=== PATIENT | female | born 1950 | race Caucasian/White ===

== ENCOUNTER 2019-02-23 08:03 | Emergency (ER) | payer OTHER ==
--- OUTSIDE RECORDS SUMMARY | 2019-02-23 08:07 | XMS REPORT ---
:1950 [facility] Address [address] [place] [address] Dr. Deng [address] [place] [id number] Care Team Providers Name Role Phone Unavailable Unavailable Unavailable Problems This patient has no known problems. Allergies, Adverse Reactions, Alerts This patient has no known allergies or adverse reactions. Medications This patient has no known medications.
[2019-02-23] MEDS ORDERED: MORPHINE 2 MG/ML SYR ONE ×2 (08:45→10:50)
[2019-02-23] MEDS ORDERED: ONDANSETRON 4 MG/2 ML VIAL ONE (08:46)
--- NOTE | 2019-02-23 09:22 | RAD REPORT ---
EXAM DESCRIPTION: RAD - Pelvis - 02/23/2019 9:12 am CLINICAL HISTORY: PAIN COMPARISON: No comparisons FINDINGS: No fracture, dislocation or radiographic evidence of AVN. IMPRESSION: Negative study.
--- NOTE | 2019-02-23 09:23 | RAD REPORT ---
EXAM DESCRIPTION: RAD - Hip Right 2 View - 02/23/2019 9:12 am CLINICAL HISTORY: PAIN COMPARISON: No comparisons FINDINGS: No fracture or dislocation seen. No finding to indicate AVN. Vascular calcification eviden t.
--- NOTE | 2019-02-23 10:20 | RAD REPORT ---
EXAM DESCRIPTION: CT - Pelvis Wo Cont - 02/23/2019 10:09 am CLINICAL HISTORY: PAIN Trauma, fall, right-sided hip and pelvic pain COMPARISON: Pelvis dated 02/23/2019; Hip Right 2 View dated 02/23/2019 TECHNIQUE: All CT scans are performed using dose optimization technique as appropriate and may inclu de automated exposure control or mA/KV adjustment according to patient size. FINDINGS: No acute fracture or dislocation is seen. No evidence of AVN. No pelvic fracture seen. Sac ral ala are intact. Moderate lower lumbar degenerative changes. No pelvic mass or hematoma seen. IMPRESSION: No acute finding demonstrated.
--- NOTE | 2019-02-23 10:30 | EDPHYS ---
Physician Documentation [facility] Name: Tri Torrez Age: 68 yrs Sex: Female : 1950 Arrival Date: 02/23/2019 Time: 08:07 Bed 15 Private MD: ED Physician Davion Herman HPI: 02/23 08:07 This 68 yrs old Female presents to ER via Unassigned with complaints of Hip rn Pain. 08:07 The patient or guardian reports decreased range of motion, pain. that occurred at home, rn sustained from standing and rotation the right lower extremity is shortened, the right leg is internally rotated, The patient is able to ambulate with assistance. The patient is able to bear partial body weight. There is no radiation of the patient's discomfort. The complaints affect the right hip. Onset: The symptoms/episode began/occurred this morning. Modifying factors: The symptoms are alleviated by nothing, the symptoms are aggravated by nothing. Associated signs and symptoms: Loss of consciousness: the patient experienced no loss of consciousness, Pertinent positives: None. Pertinent negatives: abdominal pain, fever, incontinence, vomiting, weakness. Severity of symptoms: At their worst the symptoms were moderate, in the emergency department the symptoms are unchanged. The patient has not experienced similar symptoms in the past. Reports walking/standing, rotated and felt pain to right hip, was able to "hop around", no fall or direct trauma, did not hear pop or snap. Hurts to move right hip. . Historical: - Allergies: 08:20 Codeine; jl7 - Home Meds: 08:20 alprazolam 0.25 mg oral tab [Active]; amitriptyline 50 mg Oral tab 2 times per day jl7 [Active]; levothyroxine 25 mcg oral tab [Active]; Vitamin D Oral [Active]; alendronate 70 mg oral tab once wkly [Active]; omeprazole 20 mg Oral cpDR 1 cap 2 times per day [Active]; sulfasalazine 500 mg Oral tab [Active]; - PMHx: 08:20 COPD; Hypothyroidism; Raynaud's Disease; Scleroderma; Rheumatoid Arthritis; Born with 1 jl7 kidney; Osteoporosis; - PSHx: 08:20 Hysterectomy; rectal reconstruction; jl7 - Immunization history:: Adult Immunizations unknown. - Family history:: not pertinent. - Ebola Screening: : No symptoms or risks identified at this time. - Social history:: Smoking status: unknown. - Hospitalizations: : No recent hospitalization is reported. ROS: 08:07 Constitutional: Negative for fever, chills, and weight loss, Abdomen/GI: Negative for rn abdominal pain, nausea, vomiting, diarrhea, and constipation, Back: Negative for injury and pain, MS/Extremity: + right hip injury and pain Skin: Negative for injury, rash, and discoloration, Neuro: Negative for headache, weakness, numbness, tingling, and seizure. Exam: 08:07 Constitutional: This is a well developed, well nourished patient who is awake, alert, rn pain when being moved over to bed from stretcher Skin: Warm, dry with normal turgor. Normal color with no rashes, no lesions, and no evidence of cellulitis. MS/ Extremity: Pulses equal, no cyanosis. Neurovascular intact. RLE passive internal rotation and shortened, painful ROM at hip, able to rotate in and out with hip with less pain, focal tenderness over right hip Vital Signs: 08:20 BP 135 / 59; Pulse 69; Resp 18; Temp 97.7; Pulse Ox 100% ; Pain 10/10; jl7 09:10 BP 164 / 71; Pulse 60; Resp 16; Pulse Ox 100% ; Pain 0/10; jl7 09:10 Pain 0/10; jl7 10:30 BP 127 / 70; Pulse 61; Resp 16; Pulse Ox 98% ; Pain 0/10; jl7 10:49 BP 136 / 57; Pulse 71; Resp 16; Pulse Ox 100% ; Pain 0/10; jl7 MDM: 08:07 Patient medically screened. rn 10:28 ED course: No gross changes in ECG compared to previous on 11/17/18. rn 10:28 Differential diagnosis: hip fracture, intertrochanteric fracture, femoral neck rn fracture, bursitis, arthritis, strain. Data reviewed: vital signs, nurses notes, radiologic studies, CT scan, plain films, and as a result, I will discharge patient. Counseling: I had a detailed discussion with the patient and/or guardian regarding: the historical points, exam findings, and any diagnostic results supporting the discharge/admit diagnosis, radiology results, the need for outpatient follow up, to return to the emergency department if symptoms worsen or persist or if there are any questions or concerns that arise at home. Response to treatment: the patient's symptoms have markedly improved after treatment, and as a result, I will discharge patient. Special discussion: I discussed with the patient/guardian in detail that at this point there is no indication for admission to the hospital. It is understood, however, that if the symptoms persist or worsen the patient needs to return immediately for re-evaluation. 02/23 08:07 Order name: XRAY Pelvis; Complete Time: 09: rn 02/23 08:07 Order name: XRAY Hip RIGHT 2 view; Complete Time: : rn 02/23 09:46 Order name: CT Pelvis wo Cont; Complete Time: : rn Administered Medications: 08:38 Drug: Zofran 4 mg Route: IVP; Site: right antecubital; jl7 09:29 Follow up: Response: No adverse reaction jl7 08:40 Drug: morphine 2 mg Route: IVP; Site: right antecubital; jl7 09:10 Follow up: Pain 0/10 Adult; Response: No adverse reaction; Pain is decreased jl7 10:33 Drug: morphine 2 mg Route: IVP; Site: right antecubital; jl7 10:46 Follow up: Response: No adverse reaction; Pain is decreased jl7 10:33 Drug: Flexeril 10 mg Route: PO; jl7 10:46 Follow up: Response: No adverse reaction jl7 Disposition: 02/23/19 10:29 Discharged to Home. Impression: Strain of muscle, fascia and tendon of right hip. - Condition is Stable. - Discharge Instructions: Muscle Strain, Hip Pain. - Prescriptions for Ultram 50 mg Oral Tablet - take 1 tablet by ORAL route every 6 hours As needed; 15 tablet. Cyclobenzaprine 10 mg Oral Tablet - take 1 tablet by ORAL route every 8 hours As needed; 15 tablet. promethazine 25 mg Oral Tablet - take 1 tablet by ORAL route every 6 hours As needed; 20 tablet. - Medication Reconciliation Form, Thank You Letter, Antibiotic Education, Prescription Opioid Use form. - Follow up: Private Physician; When: As needed; Reason: Recheck today's complaints, Re-evaluation by your physician. - Problem is new. - Symptoms have improved. Signatures: Dispatcher [employer] EDMS Herman, Davion, MD MD rn Emerson, Jahala, RN RN jl7 Corrections: (The following items were deleted from the chart) 10:50 10:29 02/23/2019 10:29 Discharged to Home. Impression: Strain of muscle, fascia and jl7 tendon of right hip. Condition is Stable. Forms are Medication Reconciliation Form, Thank You Letter, Antibiotic Education, Prescription Opioid Use. Follow up: Private Physician; When: As needed; Reason: Recheck today's complaints, Re-evaluation by your physician. Problem is new. Symptoms have improved. rn
--- NOTE | 2019-02-23 10:30 | ER ---
Nurse's Notes [facility] Name: Tri Torrez Age: 68 yrs Sex: Female : 1950 Arrival Date: 02/23/2019 Time: 08:07 Bed 15 Private MD: Diagnosis: Strain of muscle, fascia and tendon of right hip Presentation: 02/23 08:12 Presenting complaint: EMS states: Pt sitting in chair, got up and turned and felt jl7 immediate pain to her right hip. Transition of care: patient was not received from another setting of care. Onset of symptoms was February 22, 2019. Risk Assessment: Do you want to hurt yourself or someone else? Patient reports no desire to harm self or others. Initial Sepsis Screen: Does the patient meet any 2 criteria? No. Patient's initial sepsis screen is negative. Does the patient have a suspected source of infection? No. Patient's initial sepsis screen is negative. Care prior to arrival: Medication(s) given: Tylenol, 1000 mg. 08:12 Method Of Arrival: EMS: [facility] jl7 08:12 Acuity: IVETH 4 jl7 Historical: - Allergies: 08:20 Codeine; jl7 - Home Meds: 08:20 alprazolam 0.25 mg oral tab [Active]; amitriptyline 50 mg Oral tab 2 times per day jl7 [Active]; levothyroxine 25 mcg oral tab [Active]; Vitamin D Oral [Active]; alendronate 70 mg oral tab once wkly [Active]; omeprazole 20 mg Oral cpDR 1 cap 2 times per day [Active]; sulfasalazine 500 mg Oral tab [Active]; - PMHx: 08:20 COPD; Hypothyroidism; Raynaud's Disease; Scleroderma; Rheumatoid Arthritis; Born with 1 jl7 kidney; Osteoporosis; - PSHx: 08:20 Hysterectomy; rectal reconstruction; jl7 - Immunization history:: Adult Immunizations unknown. - Family history:: not pertinent. - Ebola Screening: : No symptoms or risks identified at this time. - Social history:: Smoking status: unknown. - Hospitalizations: : No recent hospitalization is reported. Screenin:10 Abuse screen: Denies threats or abuse. Denies injuries from another. Nutritional jl7 screening: No deficits noted. Tuberculosis screening: No symptoms or risk factors identified. Fall Risk No fall in past 12 months (0 pts). No secondary diagnosis (0 pts). IV access (20 points). Ambulatory Aid- None/Bed Rest/Nurse Assist (0 pts). Gait- Impaired (20 pts.). Mental Status- Oriented to own ability (0 pts). Total Murillo Fall Scale indicates Low Risk Score (25-44 pts). Fall prevention measures have been instituted. Side Rails Up X 2 Placed close to Nursing Station Frequent Obs/Assesments occuring Family Present and informed to notify staff if they need to leave bedside As available Patient and Family Educated on Fall Prevention Program and strategies. Assessment: 09:10 Reassessment: Patient appears in no apparent distress at this time. No changes from [facility] previously documented assessment. Patient and/or family updated on plan of care and expected duration. Pain level reassessed. Patient is alert, oriented x 3, equal unlabored respirations, skin warm/dry/pink. Pt states "I have no pain right now but when a spasm hits it's off the charts." Patient states feeling better. Patient states symptoms have improved. Pain: Denies pain. 09:34 Reassessment: Dr. Herman at bedside discussing plan of care. jl7 09:56 Reassessment: Assisted pt to bathroom, pt able to ambulate slowly with assistance at [facility] this time. 10:30 Reassessment: Patient appears in no apparent distress at this time. No changes from 7 previously documented assessment. Patient and/or family updated on plan of care and expected duration. Pain level reassessed. Patient is alert, oriented x 3, equal unlabored respirations, skin warm/dry/pink. Patient denies pain at this time. Vital Signs: 08:20 BP 135 / 59; Pulse 69; Resp 18; Temp 97.7; Pulse Ox 100% ; Pain 10/10; jl7 09:10 BP 164 / 71; Pulse 60; Resp 16; Pulse Ox 100% ; Pain 0/10; jl7 09:10 Pain 0/10; jl7 10:30 BP 127 / 70; Pulse 61; Resp 16; Pulse Ox 98% ; Pain 0/10; jl7 10:49 BP 136 / 57; Pulse 71; Resp 16; Pulse Ox 100% ; Pain 0/10; jl7 ED Course: 08:07 Patient arrived in ED. hj 08:07 Davion Herman MD is Attending Physician. rn 08:12 Bernabe Emerson RN is Primary Nurse. jl7 08:14 Triage completed. jl7 08:20 Arm band placed on right wrist. jl7 08:30 Patient has correct armband on for positive identification. Bed in low position. Call jl7 light in reach. Side rails up X2. Pulse ox on. NIBP on. Warm blanket given. 08:35 No provider procedures requiring assistance completed. Inserted saline lock: 22 gauge jl7 in right antecubital area, using aseptic technique. 09:18 XRAY Pelvis In Process Unspecified. EDMS 09:18 XRAY Hip RIGHT 2 view In Process Unspecified. EDMS 09:32 Warm blanket given. jl7 10:13 CT Pelvis wo Cont In Process Unspecified. EDMS 10:20 CT completed. Patient tolerated procedure well. Patient moved to CT via stretcher. jg6 Patient moved back from CT. 10:50 IV discontinued, intact, bleeding controlled, No redness/swelling at site. Pressure jl7 dressing applied. Administered Medications: 08:38 Drug: Zofran 4 mg Route: IVP; Site: right antecubital; jl7 09:29 Follow up: Response: No adverse reaction jl7 08:40 Drug: morphine 2 mg Route: IVP; Site: right antecubital; jl7 09:10 Follow up: Pain 0/10 Adult; Response: No adverse reaction; Pain is decreased jl7 10:33 Drug: morphine 2 mg Route: IVP; Site: right antecubital; jl7 10:46 Follow up: Response: No adverse reaction; Pain is decreased jl7 10:33 Drug: Flexeril 10 mg Route: PO; jl7 10:46 Follow up: Response: No adverse reaction jl7 Outcome: 10:29 Discharge ordered by . rn 10:49 Discharged to home via wheelchair, with family. jl7 10:49 Condition: stable 10:49 Discharge instructions given to patient, family, Instructed on discharge instructions, follow up and referral plans. medication usage, Demonstrated understanding of instructions, follow-up care, medications. 10:50 Patient left the ED. jl7 Signatures: Dispatcher [employer] EDMS Davion Herman MD MD rn Joaquin, Henry, RN RN hj Leal, Jahala, RN RN jl7 Garcia, Jessica jg6
[2019-02-23] MEDS ORDERED: CYCLOBENZAPRINE 10 MG TAB ONE (10:50)
== END 2019-02-23 10:50 | disposition home or self-care (01) ==
LOC: ER 08:03
DX: S76.011A Strain of muscle, fascia and tendon of right hip, initial encounter (principal); X50.1XXA Overexertion from prolonged static or awkward postures, initial encounter; J44.9 Chronic obstructive pulmonary disease, unspecified; E03.9 Hypothyroidism, unspecified; I73.00 Raynaud's syndrome without gangrene; Z88.5 Allergy status to narcotic agent
CPT/HCPCS: 72192; 72170; 73502; J2270 ×2; J2405; 96374; 96375; 99284

== ENCOUNTER 2021-01-24 06:16 | Inpatient (IN) | payer OTHER ==
--- OUTSIDE RECORDS SUMMARY | 2021-01-24 06:19 | XMS REPORT | Continuity of Care Document ---
:[address] [facility] t Address [address] [place] [address] Dr. White. [address] [place] [address] Care Team Providers Name Role Phone Doctor Unassigned, Name Attending Clinician Unavailable Problems This patient has no known problems. Allergies, Adverse Reactions, Alerts This patient has no known allergies or adverse reactions. Medications This patient has no known medications. Procedures This patient has no known procedures. Encounters Start End Encounter Admission Attending Care Care Encounter Source Date/Time Date/Time Type Type Clinicians Facility Department ID 2020-06-19 2020-06-19 Orders Doctor MARIBEL [id number] 00:00:00 00:00:00 Only UnassignedBIA [id number] [facility] [id number] Results This patient has no known results.
[2021-01-24 06:56] LABS: Absolute Lymphocytes (CBC) 1.2 K/uL (0.7-4.9); Basophils % 0.5 % (0-1.3); Hematocrit 39.2 % (36.0-45.0); Lymphocytes % 12.7 % (15.3-44.8); MPV 8.4 fL (7.6-11.3); RBC Red Blood Cell Count 4.19 M/uL (3.86-4.86)
[2021-01-24 06:58] LABS: Protime INR 1.1
[2021-01-24] MEDS ORDERED: TETANUS & DIPHTHERIA TOX,ADULT 0.5 ML VIAL ONE (07:16)
[2021-01-24] MEDS ORDERED: KETOROLAC 30 MG/ML INJ ONE (07:16)
[2021-01-24] MEDS ORDERED: NA CHLORIDE 0.9% 1,000 ML ONE (07:16)
[2021-01-24 07:18] LABS: Albumin 3.6 g/dL (3.4-5.0); Bilirubin Direct 0.1 mg/dL (0-0.2); Bilirubin Total 0.3 mg/dL (0.2-1.0); Magnesium 1.9 mg/dL (1.8-2.4); Potassium 4.8 mmol/L (3.5-5.1); Troponin (Emerg Dept Use Only) 0.03 ng/mL (0.0-0.045)
[2021-01-24 07:40] LABS: Blood Morphology Comment NOT SEEN (NOT SEEN); Platelet Estimate ADEQ; White Blood Cell Scan OK (OK)
--- NOTE | 2021-01-24 08:00 | RAD REPORT ---
EXAM DESCRIPTION: CT - Facial Bones W/ Mpr - 01/24/2021 7:38 am CLINICAL HISTORY: Facial injury status post fall. Facial pain COMPARISON: None TECHNIQUE: Computed axial tomography of the face was obtained. Coronal and sagittal reconstruction w as performed. All CT scans are performed using dose optimization technique as appropriate and may include automated exposure control or mA/KV adjustment according to patient size. FINDINGS: Minimally displaced fracture right zygomatic arch. Adjacent superficial hematoma. A TMJ dislocation is not noted. The globes are intact. Fluid within the sinuses is not seen. IMPRESSION: Minimally displaced fracture right zygomatic arch
--- NOTE | 2021-01-24 08:02 | RAD REPORT ---
EXAM DESCRIPTION: CT - Head C Spine Mpr Wo Con - 01/24/2021 7:39 am CLINICAL HISTORY: Head and neck injury status post fall. Head and neck pain COMPARISON: None. TECHNIQUE: Computed axial tomography of the head and cervical spine was obtained. Sagittal and coronal reconstruction was performed. All CT scans are performed using dose optimization technique as appropriate and may include automated exposure control or mA/KV adjustment according to patient size. FINDINGS: Right supraorbital hematoma. Minimally displaced right zygomatic arch fracture. Mild low-density areas within periventricular deep white matter likely ischemic changes secondary to small vessel disease An intracranial bleed is not seen. The ventricles are normal in caliber. An extra-axial fluid collect ion is not noted.Fluid within the visualized sinuses and mastoids is not seen A cervical fracture is not visualized. No dislocation is noted. IMPRESSION: No acute intracranial abnormality is seen. Minimally displaced right zygomatic arch fracture A cervical fracture is not visualized. If the patient continues to have symptoms to suggest intracra nial /spinal cord pathology then MRI would be recommended
--- NOTE | 2021-01-24 08:35 | RAD REPORT ---
EXAM DESCRIPTION: RAD - Shoulder Right 2 View - 01/24/2021 8:25 am CLINICAL HISTORY: Right shoulder pain FINDINGS: Mildly to moderately displaced fracture right humeral neck. No dislocation
--- NOTE | 2021-01-24 08:37 | RAD REPORT ---
EXAM DESCRIPTION: RAD - Humerus Right - 01/24/2021 8:26 am CLINICAL HISTORY: Right arm pain status post fall FINDINGS: Mildly to moderately displaced fracture right humeral neck. No dislocation
--- NOTE | 2021-01-24 08:37 | RAD REPORT ---
EXAM DESCRIPTION: RAD - Elbow Right 2 View - 01/24/2021 8:26 am CLINICAL HISTORY: Elbow pain FINDINGS: Limited two view series. Osteoporosis No fracture or dislocation seen
--- NOTE | 2021-01-24 08:38 | RAD REPORT ---
EXAM DESCRIPTION: Stephon Single View01/24/2021 7:20 am CLINICAL HISTORY: Chest pain COMPARISON: 2008 FINDINGS: Mild bilateral pulmonary opacities. Heart is mildly enlarged. Calcified bilateral breast implants. Mildly to moderately displaced right humeral neck fracture IMPRESSION: Mild bilateral pulmonary opacities may represent interstitial pulmonary edema Mildly to moderately displaced right humeral neck fracture
[2021-01-24] MEDS ORDERED: MORPHINE 2 MG/ML SYR ONE ×2 (08:43→13:57)
[2021-01-24] MEDS ORDERED: ONDANSETRON 4 MG/2 ML VIAL ONE ×2 (08:44→13:58)
--- NOTE | 2021-01-24 09:47 | ER ---
Nurse's Notes [facility] Name: Tri Torrez Age: 70 yrs Sex: Female : 1950 Arrival Date: 01/24/2021 Time: 06:25 Bed 3 Private MD: Diagnosis: 2-part displaced fracture of surgical neck of right humerus Presentation: 01/24 06:26 Chief complaint: EMS states: they were toned out for report of pt having fallen hitting bb her head and injuring her right arm, pt denied LOC. Care prior to arrival: splint to right arm. Mechanism of Injury: Fall out of chair. Trauma event details: Injury occurred in the [facility], Injury occurred: at home. Injury occurred: January 24, 2021. 06:26 Acuity: IVETH 3 bb 06:26 Method Of Arrival: EMS: [facility] :33 Coronavirus screen: At this time, the client does not indicate any symptoms associated bb with coronavirus-19. Ebola Screen: No symptoms or risks identified at this time. Initial Sepsis Screen: Does the patient meet any 2 criteria? No. Patient's initial sepsis screen is negative. Does the patient have a suspected source of infection? No. Patient's initial sepsis screen is negative. Risk Assessment: Do you want to hurt yourself or someone else? Patient reports no desire to harm self or others. Onset of symptoms was January 24, 2021. Historical: - Allergies: 06:33 Codeine; bb 06:33 sulfa; bb - Home Meds: : amitriptyline 50 mg Oral tab 2 times per day [Active]; alprazolam 0.25 mg Oral tab 1 bb tab daily [Active]; alendronate 70 mg Oral tab once wkly [Active]; levothyroxine 25 mcg tab [Active]; omeprazole 20 mg Oral cpDR 1 cap 2 times per day [Active]; sulfasalazine 500 mg Oral tab 2 tab after meals [Active]; VItamin D \T\ E [Active]; - PMHx: 06:33 born with 1 kidney; COPD; Hypothyroidism; Osteoporosis; Raynaud's Disease; Rheumatoid bb Arthritis; Scleroderma; - PSHx: :33 hysterectomy; bb - Immunization history: Last tetanus immunization: unknown. - Social history:: Smoking status: Patient denies any tobacco usage or history of. - Family history:: not pertinent. Screenin:26 Abuse screen: Denies threats or abuse. Tuberculosis screening: No symptoms or risk bb factors identified. 06:36 Nutritional screening: No deficits noted. Fall Risk Fall in past 12 months (25 points). bb Secondary diagnosis (15 points) impaired mobility, IV access (20 points). Ambulatory Aid- None/Bed Rest/Nurse Assist (0 pts). Gait- Impaired (20 pts.). Mental Status- Overestimates/Forgets Limitations (15 pts.). Total Murillo Fall Scale indicates High Risk Score (45 or more points). Fall prevention measures have been instituted. Side Rails Up X 2 As available patient and family educated on Fall Prevention Program and Strategies. Primary Survey: 06:26 NO uncontrolled hemorrhage observed. A: The patient is alert. Airway: patent. bb Breathing/Chest: Respiratory pattern: regular, Respiratory effort: spontaneous. Circulation: Heart tones present. Disability Alert. 07:15 Exposure/Environment: A warming method has been applied: A warm blanket has been hb provided to the patient. 07:15 Reassessment Airway Airway Patent Breathing/Chest Respiratory pattern Regular hb Respiratory effort Spontaneous Unlabored Chest inspection Symmetrical Circulation Color Gleed Disability Alert. 08:15 Reassessment Airway Oxygen No O2 Breathing/Chest Respiratory pattern Regular hb Respiratory effort Spontaneous Unlabored Chest inspection Symmetrical Circulation Color Gleed Disability Alert. 09:00 Reassessment Airway Airway Patent Oxygen No O2 Breathing/Chest Respiratory pattern hb Regular Respiratory effort Spontaneous Unlabored Chest inspection Symmetrical Circulation Pulses Palpable Color Gleed Disability Alert. 10:00 Reassessment Airway Oxygen Nasal cannula Breathing/Chest Respiratory pattern Regular hb Respiratory effort Spontaneous Unlabored Chest inspection Symmetrical Circulation Pulses Palpable Color Gleed Disability Alert. 11:00 Reassessment Airway Airway Patent Oxygen Nasal cannula Breathing/Chest Respiratory hb effort Spontaneous Unlabored Chest inspection Symmetrical Circulation Pulses Palpable Color Gleed Disability Alert. 12:00 Reassessment Airway Oxygen Nasal cannula Breathing/Chest Respiratory effort Spontaneous hb Unlabored Circulation Pulses Palpable Color Gleed Disability Alert. 13:00 Reassessment Airway Oxygen Nasal cannula Circulation Color Gleed Disability Alert. hb 14:00 Reassessment Airway Oxygen Nasal cannula Breathing/Chest Respiratory effort Spontaneous hb Unlabored Circulation Pulses Palpable Color Gleed Disability Alert. Secondary Survey: :26 HEENT: Face Other bruising to right side of face and brow with small skin tear to right bb brow. Gastrointestinal: No deficits noted. Musculoskeletal: Capillary refill < 3 seconds, Reports pain in right arm. Assessment: 06:26 General: Appears in no apparent distress. uncomfortable, Behavior is cooperative, bb anxious. Pain: Complains of pain in right arm Pain currently is 10 out of 10 on a pain scale. Neuro: Level of Consciousness is awake, alert, obeys commands, Oriented to person, place, situation. Cardiovascular: Heart tones S1 S2 present Capillary refill < 3 seconds. Respiratory: Respiratory effort is unlabored, Respiratory pattern is regular. GI: No signs and/or symptoms were reported involving the gastrointestinal system. Derm: Skin is pink, warm \T\ dry. Bruising that is right side of face and brow. Skin tear to right brow and right elbow. Musculoskeletal: Capillary refill < 3 seconds, Reports pain in right arm. 07:15 Reassessment: Patient appears in no apparent distress at this time. Patient and/or hb family updated on plan of care and expected duration. Pain level reassessed. Patient is alert, oriented x 3, equal unlabored respirations, skin warm/dry/pink. 08:00 Reassessment: Patient appears in no apparent distress at this time. Patient and/or hb family updated on plan of care and expected duration. Pain level reassessed. Patient is alert, oriented x 3, equal unlabored respirations, skin warm/dry/pink. 09:00 Reassessment: Patient appears in no apparent distress at this time. Patient and/or hb family updated on plan of care and expected duration. Pain level reassessed. Patient is alert, oriented x 3, equal unlabored respirations, skin warm/dry/pink. 10:00 Reassessment: Patient appears in no apparent distress at this time. Patient and/or hb family updated on plan of care and expected duration. Pain level reassessed. Patient is alert, oriented x 3, equal unlabored respirations, skin warm/dry/pink. 11:00 Reassessment: Patient appears in no apparent distress at this time. Patient and/or hb family updated on plan of care and expected duration. Pain level reassessed. Patient is alert, oriented x 3, equal unlabored respirations, skin warm/dry/pink. 12:00 Reassessment: Patient appears in no apparent distress at this time. Patient and/or hb family updated on plan of care and expected duration. Pain level reassessed. Patient is alert, oriented x 3, equal unlabored respirations, skin warm/dry/pink. 13:00 Reassessment: Patient appears in no apparent distress at this time. Patient and/or hb family updated on plan of care and expected duration. Pain level reassessed. Patient is alert, oriented x 3, equal unlabored respirations, skin warm/dry/pink. 19:35 Reassessment: Patient and/or family updated on plan of care and expected duration. Pain ea level reassessed. Patient is alert, oriented x 3, equal unlabored respirations, skin warm/dry/pink. Report given to receiving nurse. Pt left ED via wheelchair per nurse. Pt tolerating well. Vital Signs: 06:26 BP 154 / 108; Pulse 92; Resp 18 S; Temp 98.3(O); Pulse Ox 93% on R/A; Weight 71.67 kg bb (R); Height 5 ft. 4 in. (162.56 cm) (R); Pain 10/10; 07:15 BP 148 / 88; Pulse 89; Resp 17; Pulse Ox 99% on R/A; hb 08:15 BP 169 / 71; Pulse 84; Resp 15; Pulse Ox 97% on R/A; Pain 8/10; hb 08:30 Pulse Ox 83% on R/A; hb 08:30 Pulse Ox 96% on 3 lpm NC; hb 10:00 BP 152 / 79; Pulse 66; Resp 15; Pulse Ox 97% on 3 lpm NC; Pain 9/10; hb 11:00 BP 148 / 78; Pulse 64; Resp 17; Pulse Ox 97% on 2 lpm NC; hb 12:00 BP 118 / 75; Pulse 68; Resp 15; Pulse Ox 97% on 2 lpm NC; hb 13:00 BP 132 / 82; Pulse 80; Resp 19; Pulse Ox 98% on 2 lpm NC; hb 14:00 BP 146 / 86; Pulse 67; Resp 18; Pulse Ox 95% on 2 lpm NC; Pain 9/10; hb 06:26 Body Mass Index 27.12 (71.67 kg, 162.56 cm) bb Bethany Coma Score: 06:26 Eye Response: spontaneous(4). Verbal Response: oriented(5). Motor Response: obeys bb commands(6). Total: 15. Trauma Score (Adult): 06:26 Eye Response: spontaneous(1); Verbal Response: oriented(1); Motor Response: obeys bb commands(2); Systolic BP: > 89 mm Hg(4); Respiratory Rate: 10 to 29 per min(4); Jose D Score: 15; Trauma Score: 12 07:15 Eye Response: spontaneous(1); Verbal Response: oriented(1); Motor Response: obeys hb commands(2); Systolic BP: > 89 mm Hg(4); Respiratory Rate: 10 to 29 per min(4); Bethany Score: 15; Trauma Score: 12 08:15 Eye Response: spontaneous(1); Verbal Response: oriented(1); Motor Response: obeys hb commands(2); Systolic BP: > 89 mm Hg(4); Respiratory Rate: 10 to 29 per min(4); Jose D Score: 15; Trauma Score: 12 10:00 Eye Response: spontaneous(1); Verbal Response: oriented(1); Motor Response: obeys hb commands(2); Systolic BP: > 89 mm Hg(4); Respiratory Rate: 10 to 29 per min(4); Jose D Score: 15; Trauma Score: 12 11:00 Eye Response: spontaneous(1); Verbal Response: oriented(1); Motor Response: obeys hb commands(2); Systolic BP: > 89 mm Hg(4); Respiratory Rate: 10 to 29 per min(4); Bethany Score: 15; Trauma Score: 12 12:00 Eye Response: spontaneous(1); Verbal Response: oriented(1); Motor Response: obeys hb commands(2); Systolic BP: > 89 mm Hg(4); Respiratory Rate: 10 to 29 per min(4); Bethany Score: 15; Trauma Score: 12 13:00 Eye Response: spontaneous(1); Verbal Response: oriented(1); Motor Response: obeys hb commands(2); Systolic BP: > 89 mm Hg(4); Respiratory Rate: 10 to 29 per min(4); Bethany Score: 15; Trauma Score: 12 14:00 Eye Response: spontaneous(1); Verbal Response: oriented(1); Motor Response: obeys hb commands(2); Systolic BP: > 89 mm Hg(4); Respiratory Rate: 10 to 29 per min(4); Jose D Score: 15; Trauma Score: 12 ED Course: 06:25 Patient arrived in ED. bb 06:25 Apolonia Nolasco MD is Attending Physician. ma2 06:26 Patient has correct armband on for positive identification. Bed in low position. Call bb light in reach. Side rails up X 1. Patient maintains SpO2 saturation greater than 95% on room air. 06:26 Patient maintains SpO2 saturation greater than 95% on room air. bb 06:27 Triage completed. bb 06:30 Inserted saline lock: 20 gauge in right wrist, using aseptic technique. jb4 06:36 Arm band placed on. bb 06:36 Thermoregulation: warm blanket given to patient. bb 07:07 Attending Physician role handed off by Apolonia Nolasco MD kdr 07:07 Dexter Felix MD is Attending Physician. kdr 07:19 XRAY Chest (1 view) In Process Unspecified. EDMS 07:38 Facial Bones W/O Con CT In Process Unspecified. EDMS 07:39 CT Head C Spine In Process Unspecified. EDMS 08:25 Shoulder Right (2 View) XRAY In Process Unspecified. EDMS 08:25 Humerus Right XRAY In Process Unspecified. EDMS 08:25 Elbow Right 2 View In Process Unspecified. EDMS 08:31 Layla Stovall RN is Primary Nurse. hb 09:44 Danis Cabrera is Hospitalizing Provider. kdr 10:13 Inserted saline lock: 22 gauge in left antecubital area, using aseptic technique. Blood ss collected. 14:00 No provider procedures requiring assistance completed. Patient admitted, IV remains in hb place. 19:35 Primary Nurse role handed off by Layla Stovall RN mw2 Administered Medications: 07:00 Drug: Ketorolac 30 mg Route: IVP; Site: left hand; bb 07:11 Follow up: Response: No adverse reaction bb 07:00 Drug: NS 0.9% 1000 ml Route: IV; Rate: 1 bolus; Site: left hand; bb 07:00 Drug: Tetanus-Diphtheria Toxoid Adult 0.5 ml {Coarse [employer] Drawer: [employer]. Exp: bb 09/29/2022. Lot #: [id number]. } Route: IM; Site: left deltoid; 07:12 Follow up: Response: No adverse reaction bb 08:29 Drug: morphine 2 mg Route: IVP; Site: left wrist; hb 08:29 Drug: Zofran (Ondansetron) 4 mg Route: IVP; Site: left wrist; hb 09:10 Follow up: Response: No adverse reaction hb 10:29 Drug: morphine 4 mg Route: IVP; Site: left antecubital; hb 13:40 Drug: morphine 2 mg Route: IVP; Site: left antecubital; hb Intake: 06:26 PO: 0ml; Total: 0ml. bb Outcome: 09:47 Decision to Hospitalize by Provider. kdr 14:00 Admitted to ER Hold. Please see [facility] for further documentation. hb 14:00 Condition: stable 14:00 Instructed on the need for admit, Demonstrated understanding of instructions. 14:00 Patient's length of stay in the Emergency Department was greater than 2 hours. hb 19:36 Patient left the ED. linnette Signatures: Dispatcher [employer] EDMS Dexter Felix MD MD kdr Ballard, Brenda, RN RN bb Kimberly Pack RN RN ss Baxter, Heather, RN RN Austin Rosado RN RN jb4 Antunez, Elena, RN RN ea Alzahri, Mohammad, MD MD ma2 Mary Ann Grissom 2
--- NOTE | 2021-01-24 09:48 | EDPHYS ---
Physician Documentation [facility] Name: Tri Torrez Age: 70 yrs Sex: Female : 1950 Arrival Date: 01/24/2021 Time: 06:25 Bed 3 Private MD: ED Physician Dexter Felix HPI: 01/24 06:49 This 70 yrs old Female presents to ER via EMS with complaints of Fall Injury. ma2 06:49 Details of fall: The patient fell from seated position, out of a chair. Onset: The ma2 symptoms/episode began/occurred acutely, gradually, 1 hour(s) ago. Severity of symptoms: At their worst the symptoms were mild, in the emergency department the symptoms are unchanged. The patient has experienced similar episodes in the past. 06:51 lost balance, fell hit her head and right elbow and shoulder . ma2 Historical: - Allergies: 06:33 Codeine; bb 06:33 sulfa; bb - Home Meds: 06:33 amitriptyline 50 mg Oral tab 2 times per day [Active]; alprazolam 0.25 mg Oral tab 1 bb tab daily [Active]; alendronate 70 mg Oral tab once wkly [Active]; levothyroxine 25 mcg tab [Active]; omeprazole 20 mg Oral cpDR 1 cap 2 times per day [Active]; sulfasalazine 500 mg Oral tab 2 tab after meals [Active]; VItamin D \T\ E [Active]; - PMHx: 06:33 born with 1 kidney; COPD; Hypothyroidism; Osteoporosis; Raynaud's Disease; Rheumatoid bb Arthritis; Scleroderma; - PSHx: 06:33 hysterectomy; bb - Immunization history: Last tetanus immunization: unknown. - Social history:: Smoking status: Patient denies any tobacco usage or history of. - Family history:: not pertinent. ROS: 06:50 Constitutional: Negative for fever, chills, and weight loss, Cardiovascular: Negative ma2 for chest pain, palpitations, and edema, Respiratory: Negative for shortness of breath, cough, wheezing, and pleuritic chest pain, Abdomen/GI: Negative for abdominal pain, nausea, diarrhea, and constipation. 06:51 All other systems are negative. ma2 Exam: 06:51 Constitutional: This is a well developed, well nourished patient who is awake, alert, ma2 and in no acute distress. Head/Face: right forehead contusion otherwise Normocephalic Eyes: Pupils equal round and reactive to light, extra-ocular motions intact. Lids and lashes normal. Conjunctiva and sclera are non-icteric and not injected. Cornea within normal limits. Periorbital areas with no swelling, redness, or edema. ENT: Nares patent. No nasal discharge, no septal abnormalities noted. Tympanic membranes are normal and external auditory canals are clear. Oropharynx with no redness, swelling, or masses, exudates, or evidence of obstruction, uvula midline. Mucous membranes moist. Neck: Trachea midline, no thyromegaly or masses palpated, and no cervical lymphadenopathy. Supple, full range of motion without nuchal rigidity, or vertebral point tenderness. No Meningismus. Chest/axilla: Normal chest wall appearance and motion. Nontender with no deformity. No lesions are appreciated. Cardiovascular: Regular rate and rhythm with a normal S1 and S2. No gallops, murmurs, or rubs. Normal PMI, no JVD. No pulse deficits. Respiratory: Lungs have equal breath sounds bilaterally, clear to auscultation and percussion. No rales, rhonchi or wheezes noted. No increased work of breathing, no retractions or nasal flaring. Abdomen/GI: Soft, non-tender, with normal bowel sounds. No distension or tympany. No guarding or rebound. No evidence of tenderness throughout. Back: No spinal tenderness. No costovertebral tenderness. Full range of motion. Skin: Warm, dry with normal turgor. Normal color with no rashes, no lesions, and no evidence of cellulitis. MS/ Extremity: right elbow pain and right shoulder pain, there is right elbow skin abrasion with skin tear. otherwise Pulses equal, no cyanosis. Neurovascular intact. Full, normal range of motion. Neuro: Awake and alert, GCS 15, oriented to person, place, time, and situation. Cranial nerves II-XII grossly intact. Motor strength 5/5 in all extremities. Sensory grossly intact. Cerebellar exam normal. Normal gait. Vital Signs: 06:26 BP 154 / 108; Pulse 92; Resp 18 S; Temp 98.3(O); Pulse Ox 93% on R/A; Weight 71.67 kg bb (R); Height 5 ft. 4 in. (162.56 cm) (R); Pain 10/10; 07:15 BP 148 / 88; Pulse 89; Resp 17; Pulse Ox 99% on R/A; hb 08:15 BP 169 / 71; Pulse 84; Resp 15; Pulse Ox 97% on R/A; Pain 8/10; hb 08:30 Pulse Ox 83% on R/A; hb 08:30 Pulse Ox 96% on 3 lpm NC; hb 10:00 BP 152 / 79; Pulse 66; Resp 15; Pulse Ox 97% on 3 lpm NC; Pain 9/10; hb 11:00 BP 148 / 78; Pulse 64; Resp 17; Pulse Ox 97% on 2 lpm NC; hb 12:00 BP 118 / 75; Pulse 68; Resp 15; Pulse Ox 97% on 2 lpm NC; hb 13:00 BP 132 / 82; Pulse 80; Resp 19; Pulse Ox 98% on 2 lpm NC; hb 14:00 BP 146 / 86; Pulse 67; Resp 18; Pulse Ox 95% on 2 lpm NC; Pain 9/10; hb 06:26 Body Mass Index 27.12 (71.67 kg, 162.56 cm) bb Walker Coma Score: 06:26 Eye Response: spontaneous(4). Verbal Response: oriented(5). Motor Response: obeys bb commands(6). Total: 15. Trauma Score (Adult): 06:26 Eye Response: spontaneous(1); Verbal Response: oriented(1); Motor Response: obeys bb commands(2); Systolic BP: > 89 mm Hg(4); Respiratory Rate: 10 to 29 per min(4); Walker Score: 15; Trauma Score: 12 07:15 Eye Response: spontaneous(1); Verbal Response: oriented(1); Motor Response: obeys hb commands(2); Systolic BP: > 89 mm Hg(4); Respiratory Rate: 10 to 29 per min(4); Walker Score: 15; Trauma Score: 12 08:15 Eye Response: spontaneous(1); Verbal Response: oriented(1); Motor Response: obeys hb commands(2); Systolic BP: > 89 mm Hg(4); Respiratory Rate: 10 to 29 per min(4); Walker Score: 15; Trauma Score: 12 10:00 Eye Response: spontaneous(1); Verbal Response: oriented(1); Motor Response: obeys hb commands(2); Systolic BP: > 89 mm Hg(4); Respiratory Rate: 10 to 29 per min(4); Walker Score: 15; Trauma Score: 12 11:00 Eye Response: spontaneous(1); Verbal Response: oriented(1); Motor Response: obeys hb commands(2); Systolic BP: > 89 mm Hg(4); Respiratory Rate: 10 to 29 per min(4); Jose D Score: 15; Trauma Score: 12 12:00 Eye Response: spontaneous(1); Verbal Response: oriented(1); Motor Response: obeys hb commands(2); Systolic BP: > 89 mm Hg(4); Respiratory Rate: 10 to 29 per min(4); Walker Score: 15; Trauma Score: 12 13:00 Eye Response: spontaneous(1); Verbal Response: oriented(1); Motor Response: obeys hb commands(2); Systolic BP: > 89 mm Hg(4); Respiratory Rate: 10 to 29 per min(4); Jose D Score: 15; Trauma Score: 12 14:00 Eye Response: spontaneous(1); Verbal Response: oriented(1); Motor Response: obeys hb commands(2); Systolic BP: > 89 mm Hg(4); Respiratory Rate: 10 to 29 per min(4); Jose D Score: 15; Trauma Score: 12 MDM: 06:25 Patient medically screened. ma2 06:51 Differential diagnosis: closed head injury, contusion, fracture, sprain, strain. ma2 09:47 Data reviewed: vital signs, nurses notes, lab test result(s), radiologic studies. kdr Counseling: I had a detailed discussion with the patient and/or guardian regarding: the historical points, exam findings, and any diagnostic results supporting the discharge/admit diagnosis, lab results, radiology results, the need for further work-up and treatment in the hospital. 01/24 06:26 Order name: Basic Metabolic Panel; Complete Time: 08:43 01/24 06:26 Order name: CBC with Diff; Complete Time: 08:43 01/24 06:26 Order name: LFT's; Complete Time: 08:43 01/24 06:26 Order name: Magnesium; Complete Time: 08:43 01/24 06:26 Order name: NT PRO-BNP; Complete Time: 08:43 ma2 01/24 06:26 Order name: PT-INR; Complete Time: 08:43 ma2 01/24 06:26 Order name: CT Head C Spine; Complete Time: 08:43 ma2 01/24 06:26 Order name: Troponin (emerg Dept Use Only); Complete Time: 08:43 ma2 01/24 06:26 Order name: XRAY Chest (1 view); Complete Time: 08:43 ma2 01/24 06:42 Order name: Facial Bones W/O Con CT; Complete Time: 08:43 ma2 01/24 06:42 Order name: Shoulder Right (2 View) XRAY; Complete Time: 08:43 ma2 01/24 06:42 Order name: Humerus Right XRAY; Complete Time: 08:43 ma2 01/24 07:03 Order name: CBC Smear Scan; Complete Time: 08:43 EDMS 01/24 06:26 Order name: EKG; Complete Time: 06:27 ma2 01/24 06:26 Order name: Cardiac monitoring; Complete Time: 06:58 ma2 01/24 06:26 Order name: EKG - Nurse/Tech; Complete Time: 06:58 ma2 01/24 06:26 Order name: IV Saline Lock; Complete Time: 06:35 ma2 01/24 06:26 Order name: Labs collected and sent; Complete Time: 06:58 ma2 01/24 06:26 Order name: O2 Per Protocol; Complete Time: 06:35 ma2 01/24 06:26 Order name: O2 Sat Monitoring; Complete Time: 06:35 ma2 01/24 06:42 Order name: Dressing - Wound; Complete Time: 13:40 ma2 01/24 08:25 Order name: Elbow Right 2 View; Complete Time: 08:43 EDMS Administered Medications: 07:00 Drug: Ketorolac 30 mg Route: IVP; Site: left hand; bb 07:11 Follow up: Response: No adverse reaction bb 07:00 Drug: NS 0.9% 1000 ml Route: IV; Rate: 1 bolus; Site: left hand; bb 07:00 Drug: Tetanus-Diphtheria Toxoid Adult 0.5 ml {Pie Maker: [employer] Exp: bb 09/29/2022. Lot #: [id number]. } Route: IM; Site: left deltoid; 07:12 Follow up: Response: No adverse reaction bb 08:29 Drug: morphine 2 mg Route: IVP; Site: left wrist; hb 08:29 Drug: Zofran (Ondansetron) 4 mg Route: IVP; Site: left wrist; hb 09:10 Follow up: Response: No adverse reaction hb 10:29 Drug: morphine 4 mg Route: IVP; Site: left antecubital; hb 13:40 Drug: morphine 2 mg Route: IVP; Site: left antecubital; hb Disposition Summary: 01/24/21 09:47 Hospitalization Ordered Hospitalization Status: Observation kdr Provider: Danis Cabrera Condition: Fair kdr Problem: new kdr Symptoms: have improved kdr Bed/Room Type: Standard kdr Location: Telemetry/MedSurg (observation)(01/24/21 17:57) bd Room Assignment: [facility](01/24/21 17:57) bd Diagnosis - 2-part displaced fracture of surgical neck of right humerus kdr Forms: - Medication Reconciliation Form kdr - SBAR form kdr Signatures: Dispatcher [employer] EDMS Bev Lucas Kevin, MD MD kdr Tri Valentin RN RN bb Smirch, Shelby, RN RN ss Baxter, Heather, RN RN Apolonia Nolasco MD MD ma2 Corrections: (The following items were deleted from the chart) 08:25 06:42 Elbow Right 3 View+[email or web address] ordered. EDMS EDMS 14:08 09:47 Telemetry/MedSurg (observation) kdr ss 14:08 09:47 kdr ss 14:08 14:08 ss ss 17:57 14:08 [facility] ER HOLD ss bd 17:57 14:08 ERHOLD- ss bd
[2021-01-24] MEDS ORDERED: MORPHINE 4 MG/ML SYR ONE (10:00)
--- NOTE | 2021-01-24 11:00 | P.HP ---
Certification for Inpatient Patient admitted to: Observation With expected LOS: <2 Midnights Practitioner: I am a practitioner with admitting privileges, knowledge of patient current condition, hospital course, and medical plan of care. Services: Services provided to patient in accordance with Admission requirements found in Title 42 Section 412.3 of the Code of Federal Regulations Patient History Date of Service: 01/24/21 Reason for admission: Fall with humeral fracture History of Present Illness: [age]-year-old woman with a history of rheumatoid arthritis, hypothyroidism was brought to the emergency department after a fall at home. Patient stated she fell when got up from her recliner in the middle of the night to go and sleep on her bed. She thought she might have turned around quickly. She hit the right side of her head and sustained laceration sabianism. She could not get up and walk. She developed pain. was woken by their dogs a few hours later and found her lying in a pool of blood. According to the patient responding to him appropriately, no loss of consciousness but she was in pain. She was brought to the emergency department where x-rays showing minimal to moderately displaced right femoral fracture, no dislocation. Patient needing a lot of pain medications for pain control. The ED physician wishes to place patient under observation for pain control. Allergies codeine Allergy (Unverified 06/01/17 06:22) Unknown - Past Medical/Surgical History Diabetic: No -: Rheumatoid arthritis -: Raynaud's disease -: Hypothyroidism -: Hysterectomy -: Rectal reconstruction surgery - Family History Father -: Cancer (Lungs) Brother -: Cancer (Lung) - Social History Smoking Status: Never smoker Alcohol use: No CD- Drugs: No Place of Residence: Home Review of Systems Other: Patient denied any dizziness, or palpitation or chest pain or diaphoresis preceding the fall. She denies any fever or chills or abdominal pain or nausea. She denies any diarrhea or vomiting. Except as documented, all other systems reviewed and negative. Physical Examination - Physical Exam General: Alert, In no apparent distress, Oriented x3 HEENT: Mucous membr. moist/pink, Other (small laceration right sabianism.) Neck: Supple, JVD not distended Respiratory: Clear to auscultation bilaterally, Normal air movement Cardiovascular: No edema, Regular rate/rhythm, Normal S1 S2 Capillary refill: <2 Seconds Gastrointestinal: Normal bowel sounds, Soft and benign, Non-distended, No tenderness Musculoskeletal: Tenderness (right arm), Other (cyanotic fingers) Integumentary: No rashes Neurological: Normal strength at 5/5 x4 extr, Cranial nerves 3-12 intact Lymphatics: No axilla or inguinal lymphadenopathy - Studies Laboratory Data (last 24 hrs) 01/24/21 06:46: PT 12.7 H, INR 1.10 01/24/21 06:46: WBC 9.20, Hgb 12.4, Hct 39.2, Plt Count 165 01/24/21 06:46: Sodium 141, Potassium 4.8, BUN 26 H, Creatinine 2.19 H, Glucose 104, Magnesium 1.9, Total Bilirubin 0.3, AST 17, ALT 17, Alkaline Phosphatase 88 Assessment and Plan - Problems (Diagnosis) (1) Fall Current Visit: Yes Status: Acute (2) Humeral fracture Current Visit: Yes Status: Acute (3) Rheumatoid arthritis Current Visit: Yes Status: Acute (4) Acute renal failure Current Visit: Yes Status: Acute - Plan Place under observation. Pain management with IV fentanyl, Burley and Naprosyn Will also add gabapentin for nerve pain. Hydrate with normal saline and monitor renal function for improvement. Consulting nephrology. Sling for right humeral fracture. PT to evcarlos low. 24 hr telemetry. - Advance Directives Does patient have a Living Will: No Does patient have a Durable POA for Healthcare: No
[2021-01-24] MEDS: NA CHLORIDE 0.9% 1,000 ML IV SCH ×2 (15:14→20:38)
[2021-01-24] MEDS ORDERED: NAPROXEN 250 MG TAB PO PRN (15:14)
[2021-01-24] MEDS ORDERED: HYDROCODONE/APAP 5/325 MG TAB PO PRN (15:14)
[2021-01-24] MEDS: FENTANYL CITR 100 MCG/2 ML IV PRN ×2 (15:40→18:48)
[2021-01-24] MEDS ORDERED: FENTANYL CITR 100 MCG/2 ML ONE ×2 (15:40→18:53)
[2021-01-24] MEDS: HEPARIN 5000 UNIT/ML 1 ML VIAL SQ SCH (17:00)
[2021-01-24] MEDS ORDERED: HEPARIN 5000 UNIT/ML 1 ML VIAL ONE (18:51)
[2021-01-24 20:20] VITALS: BMI 27.3
[2021-01-25] MEDS: HEPARIN 5000 UNIT/ML 1 ML VIAL SQ SCH ×3 (00:16→16:39)
[2021-01-25] MEDS: FENTANYL CITR 100 MCG/2 ML IV PRN ×2 (00:26→20:54)
[2021-01-25] MEDS: NA CHLORIDE 0.9% 1,000 ML IV SCH (04:34)
[2021-01-25 05:54] LABS: Absolute Lymphocytes (CBC) 0.7 K/uL (0.7-4.9); Basophils % 0.3 % (0-1.3); Hematocrit 35.3 % (36.0-45.0); Lymphocytes % 9.7 % (15.3-44.8); MPV 8.6 fL (7.6-11.3); RBC Red Blood Cell Count 3.83 M/uL (3.86-4.86)
[2021-01-25 06:02] LABS: Magnesium 1.6 mg/dL (1.8-2.4); Phosphorus 2.1 mg/dL (2.5-4.9); Potassium 5.4 mmol/L (3.5-5.1)
[2021-01-25] MEDS: LEVOTHYROXINE SOD 0.025 MG TAB PO SCH (06:30)
[2021-01-25] MEDS ORDERED: MAGNESIUM SULFATE 1 gm IVPB 1 GM/100 ML BAG IV ONE (07:30)
[2021-01-25] MEDS: POTASS/SODIUM PHOSPHATE 1 PKT POWD.PACK PO SCH ×3 (08:00→10:00)
[2021-01-25] MEDS ORDERED: Oxycodone HCl/Acetaminophen 1 TAB TAB PO ONE (11:49)
[2021-01-25] MEDS ORDERED: POTASS/SODIUM PHOSPHATE 1 PKT POWD.PACK PO SCH (12:00)
[2021-01-25] MEDS ORDERED: ONDANSETRON 4 MG/2 ML VIAL IV PRN (12:56)
[2021-01-25] MEDS ORDERED: PROMETHAZINE INJ 25 MG/ML AMP IV PRN (12:59)
--- NOTE | 2021-01-25 16:25 | P.PN ---
Subjective Date of Service: 01/25/21 Chief Complaint: Fall with humeral fracture Patient complaining of a lot of pain which has flinching. Physical Examination - Vital Signs Temperature: 98.1 F Blood Pressure: 141/65 Pulse: 72 Respirations: 19 Pulse Ox (%): 93 - Physical Exam General: Alert, In no apparent distress HEENT: Mucous membr. moist/pink Neck: JVD not distended Respiratory: Clear to auscultation bilaterally, Normal air movement Cardiovascular: No edema, Regular rate/rhythm, Normal S1 S2 Gastrointestinal: Soft and benign, Non-distended, No tenderness Musculoskeletal: No swelling, Tenderness (Right arm) Integumentary: Other (Bruised rigt ) Neurological: Normal strength at 5/5 x4 extr, Cranial nerves 3-12 intact Assessment And Plan - Current Problems (Diagnosis) (1) Fall Current Visit: Yes Status: Acute (2) Humeral fracture Current Visit: Yes Status: Acute (3) Rheumatoid arthritis Current Visit: Yes Status: Acute (4) Acute renal failure Current Visit: Yes Status: Acute - Plan Continue Pain management with IV fentanyl. Patient states she does not tolerate Mannford. Mannford changed to oxycodone. Gabapentin. Renal function is improving slowly. Continue IV normal saline. Nephrology consult. Monitor renal function. Sling for right humeral fracture. Patient reported to be drowsy after oxycodone and Phenergan. PT to eval low when she is more awake
[2021-01-25] MEDS: AMITRIPTYLINE 50 MG TAB PO SCH (20:37)
[2021-01-26] MEDS: HEPARIN 5000 UNIT/ML 1 ML VIAL SQ SCH ×4 (01:25→17:19)
[2021-01-26] MEDS: LEVOTHYROXINE SOD 0.025 MG TAB PO SCH (05:59)
[2021-01-26 06:05] LABS: Phosphorus 2.9 mg/dL (2.5-4.9); Potassium 5.3 mmol/L (3.5-5.1)
--- NOTE | 2021-01-26 06:24 | EKG ---
Test Date: 2021-01-24 Test Time: 06:52:12 [place] Folder: JOSELITO MEASUREMENT RESULTS: Intervals: Rate: 63 IL: 234 QRSD: 94 QT: 448 QTc: 458 [place]: P: 57 IL: 234 QRS: -35 T: 57 INTERPRETIVE STATEMENTS: Sinus rhythm with 1st degree AV block Possible Left atrial enlargement Left axis deviation Left ventricular hypertrophy Abnormal ECG Compared to ECG 01/06/2009 19:53:41 First degree AV block now present Left-axis deviation now present Left ventricular hypertrophy now present Prolonged QT interval no longer present Electronically Signed On 01-26-21 06:18:28 CDT by Guido Farrell
[2021-01-26] MEDS ORDERED: HOME MED 1 EA UNK (Levothyroxine Sodium [Levothyroxine] 25 MCG Capsule) PO SCH (09:00)
[2021-01-26] MEDS ORDERED: HOME MED 1 EA UNK (Sulfasalazine [Sulfasalazine] 500 MG Tablet) PO SCH (09:00)
[2021-01-26] MEDS: SULFASALAZINE 500 MG E.C. TAB PO SCH (09:30)
[2021-01-26] MEDS: AMITRIPTYLINE 50 MG TAB PO SCH ×2 (09:30→21:03)
--- NOTE | 2021-01-26 11:36 | RAD REPORT ---
EXAM DESCRIPTION: RAD - Hip Right 2 View - 01/26/2021 11:07 am CLINICAL HISTORY: Right inguinal pain s/p fall Trauma, right inguinal pain COMPARISON: Hip Right 2 View dated 02/23/2019 FINDINGS: No acute fracture or dislocation evident.
--- NOTE | 2021-01-26 16:10 | P.PN ---
Subjective Date of Service: 01/26/21 Chief Complaint: Fall with humeral fracture Patient is very confused this afternoon. She is disoriented. She worked well with physical therapy this morning and was able to ambulate with a walker. She was complaining of pain in the right groin. X-ray of the hip shows no acute fracture or dislocation. Physical Examination - Vital Signs Temperature: 98.0 F Blood Pressure: 179/75 Pulse: 72 Respirations: 16 Pulse Ox (%): 94 - Physical Exam General: In no apparent distress, Confused HEENT: PERRLA, Mucous membr. moist/pink, Sclerae nonicteric Neck: JVD not distended Respiratory: Clear to auscultation bilaterally, Normal air movement Cardiovascular: No edema, Regular rate/rhythm, Normal S1 S2 Gastrointestinal: Normal bowel sounds, Soft and benign, Non-distended, No tenderness Musculoskeletal: Swelling (Right knee), Other (Splinted right upper extremity) Integumentary: Other (Bruise at right sabianist.) Neurological: Normal speech, Other (No focal motor deficit) Assessment And Plan - Current Problems (Diagnosis) (1) Fall Current Visit: Yes Status: Acute (2) Humeral fracture Current Visit: Yes Status: Acute (3) Rheumatoid arthritis Current Visit: Yes Status: Acute (4) Acute renal failure Current Visit: Yes Status: Acute (5) Altered mental status Current Visit: Yes Status: Acute - Plan Altered mental status. Rule out acute CVA versus intracranial bleed from head injury. Obtain head CT. Neuro checks. Limit opioid for pain. Oxycodone p.r.n. No Gabapentin until mental status clears. Renal function is improving slowly. Continue IV normal saline. Nephrology to see. Monitor renal function. Sling for right humeral fracture. Continue PT. Check UA to assess for UTI.
--- NOTE | 2021-01-26 16:12 | P.CNS ---
Date of Consult: 01/26/21 Reason for Consult: RADHA Requesting Physician: salvatore cassidy Chief Complaint: Fall with humeral fracture History of Present Illness: 70-year-old woman with a history of rheumatoid arthritis, hypothyroidism was brought to the emergency department after a fall at home. Patient stated she fell when got up from her recliner in the middle of the night to go and sleep on her bed. She thought she might have turned around quickly. She hit the right side of her head and sustained laceration latter-day. She could not get up and walk. She developed pain. was woken by their dogs a few hours later and found her lying in a pool of blood. According to the patient responding to him appropriately, no loss of consciousness but she was in pain. She was brought to the emergency department where x-rays showing minimal to mod erately displaced right femoral fracture, no dislocation. Patient needing a lot of pain medications for pain control. The ED physician wishes to place patient under observation for pain control. 06:49 This 70 yrs old Female presents to ER via EMS with complaints of Fall Injury. ma2 06:49 Details of fall: The patient fell from seated position, out of a chair. Onset: The ma2 symptoms/episode began/occurred acutely, gradually, 1 hour(s) ago. Severity of symptoms: At their worst the symptoms were mild, in the emergency department the symptoms are unchanged. The patient has experienced similar episodes in the past. 06:51 lost balance, fell hit her head and right elbow and shoulder . Allergies codeine Allergy (Verified 01/24/21 20:25) throwing up Sulfa (Sulfonamide Antibiotics) Allergy (Verified 01/24/21 20:25) Itching/Hives/Rash Home medications list reviewed: Yes Home Medications: ALPRAZolam [Alprazolam] 0.25 mg PO DAILY 01/25/21 Amitriptyline [Elavil*] 50 mg PO BID 01/25/21 Levothyroxine Sodium [Levothyroxine] 25 mcg PO DAILY 01/25/21 sulfaSALAzine [Sulfasalazine] 500 mg PO DAILY 01/25/21 - Past Medical/Surgical History Diabetic: No -: Rheumatoid arthritis -: Raynaud's disease -: Hypothyroidism -: Hysterectomy -: Rectal reconstruction surgery - Family History Father Medical History: Cancer Brother Medical History: Cancer - Social History Smoking Status: Unknown if ever smoked Alcohol use: No CD- Drugs: No Place of Residence: Home Review of Systems 10-point ROS is otherwise unremarkable General: Weakness, Malaise Integumentary: Bruising Neurological: Weakness Physical Examination Temp Pulse Resp BP Pulse Ox 98.0 F 72 16 179/75 H 94 01/26/21 12:00 01/26/21 12:00 01/26/21 12:00 01/26/21 12:00 01/26/21 12:00 General: Cooperative Neck: Supple Respiratory: Clear to auscultation bilaterally Cardiovascular: No edema, Regular rate/rhythm Gastrointestinal: Soft and benign, Non-distended Musculoskeletal: No clubbing, No contractures Integumentary: No rashes, No cyanosis Neurological: Normal speech Blood work reviewed in the chart. Imagings Data: EXAM DESCRIPTION: Stephon Single View01/24/2021 7:20 am CLINICAL HISTORY: Chest pain COMPARISON: 2008 FINDINGS: Mild bilateral pulmonary opacities. Heart is mildly enlarged. Calcified bilateral breast implants. Mildly to moderately displaced right humeral neck fracture IMPRESSION: Mild bilateral pulmonary opacities may represent interstitial pulmonary edema Mildly to moderately displaced right humeral neck fracture Conclusions/Impression: RADHA likely hypovolemia CKD III -No NSAIDs Hyperkalemia -Kayexalate 15g X1 Hypomagnesemia -Replete IV mag prn HypoPO4 -Neutraphos PRN -Encourage nutrition HTN -Consider amlodipine Anemia in chronic illness -Monitor H&H Thank you kindly for the consultation. Case reviewed with Dr. Cassidy
[2021-01-26] MEDS ORDERED: Oxycodone HCl/Acetaminophen 1 TAB TAB PO PRN (16:16)
--- NOTE | 2021-01-26 17:13 | RAD REPORT ---
EXAM DESCRIPTION: CT - Head Brain Wo Cont - 01/26/2021 4:34 pm CLINICAL HISTORY: Alteration of awareness/confusion COMPARISON: 01/24/20212013 TECHNIQUE: Computed axial tomography of the head was obtained. IV contrast was not requested. All CT scans are performed using dose optimization technique as appropriate and may include automated exposure control or mA/KV adjustment according to patient size. FINDINGS: An intracranial bleed is not seen . The ventricles are normal in caliber. No extra-axial fluid collection is noted. 14 millimeter cystic structure in the right aspect of the p ineal region is unchanged and may represent a cyst or diverticulum Mild to moderate low-density areas within periventricular, deep and subcortical white matter likely r epresent ischemic changes secondary to small vessel disease. Fluid within the sinuses/ mastoids is not seen. IMPRESSION: No acute intracranial abnormality is seen. If patient's symptoms persist MRI of the bra in would be recommended.
[2021-01-26] MEDS ORDERED: SOD POLYSTYREN SUL 15 GM/60 ML UCUP PO ONE (18:00)
[2021-01-26 18:22] LABS: Urine Appearance CLEAR (Clear); Urine Bilirubin NEGATIVE (Negative); Urine Blood NEGATIVE (Negative); Urine Color YELLOW (Yellow); Urine Glucose NEGATIVE (Negative); Urine Protein TRACE (Negative); Urine Specific Gravity 1.015 (1.005-1.030); Urine Urobilinogen 0.2 mg/dL (0.2-1.0); Urine pH 5.5 (5.0-7.0)
[2021-01-26 19:07] LABS: Urine Bacteria <20 /HPF (<20); Urine RBC NONE SEEN /HPF (NONE SEEN)
[2021-01-27] MEDS: HEPARIN 5000 UNIT/ML 1 ML VIAL SQ SCH ×3 (01:36→15:44)
[2021-01-27] MEDS: LEVOTHYROXINE SOD 0.025 MG TAB PO SCH (06:27)
[2021-01-27 06:52] LABS: Absolute Lymphocytes (CBC) 1.1 K/uL (0.7-4.9); Basophils % 0.6 % (0-1.3); Lymphocytes % 16.1 % (15.3-44.8); MPV 9.5 fL (7.6-11.3); RBC Red Blood Cell Count 3.79 M/uL (3.86-4.86)
[2021-01-27 07:14] LABS: Potassium 5.5 mmol/L (3.5-5.1)
[2021-01-27] MEDS: SULFASALAZINE 500 MG E.C. TAB PO SCH (08:49)
[2021-01-27] MEDS: AMITRIPTYLINE 50 MG TAB PO SCH ×2 (08:49→20:35)
[2021-01-27 08:57] LABS: Platelet Estimate DECR; White Blood Cell Scan OK (OK)
[2021-01-27 08:58] LABS: Anisocytosis 1+; Blood Morphology Comment NOTED (NOT SEEN)
[2021-01-27] MEDS ORDERED: SOD POLYSTYREN SUL 15 GM/60 ML UCUP PO ONE (09:56)
[2021-01-27] MEDS ORDERED: ACETAMINOPHEN 500 MG TAB PO PRN (10:39)
--- NOTE | 2021-01-27 13:12 | P.PN ---
Subjective Date of Service: 01/27/21 Chief Complaint: Fall with humeral fracture Patient is more awake and alert today Her disorientation yesterday could be medication-related. Repeat CT head was unremarkable Patient is needing assistance with transfer. Physical Examination - Vital Signs Temperature: 97.5 F Blood Pressure: 109/62 Pulse: 74 Respirations: 16 Pulse Ox (%): 97 - Physical Exam General: Alert, In no apparent distress, Oriented x3 HEENT: Mucous membr. moist/pink Neck: JVD not distended Respiratory: Clear to auscultation bilaterally, Normal air movement Cardiovascular: No edema, Regular rate/rhythm, Normal S1 S2, Systolic murmur Gastrointestinal: Normal bowel sounds, Soft and benign, Non-distended, No tenderness Musculoskeletal: Tenderness (Right shoulder) Integumentary: Other (Right hindu bruise is better.) Neurological: Normal speech, Other (No focal motor deficit.) Assessment And Plan - Current Problems (Diagnosis) (1) Fall Current Visit: Yes Status: Acute (2) Humeral fracture Current Visit: Yes Status: Acute (3) Rheumatoid arthritis Current Visit: Yes Status: Acute (4) Acute renal failure Current Visit: Yes Status: Acute (5) Altered mental status Current Visit: Yes Status: Acute (6) Metabolic encephalopathy Current Visit: Yes Status: Acute - Plan Altered mental status. Head CT unremarkable. Altered mental status likely medication related. UA is negative for UTI. Not septic. Neuro checks. Patient very sensitive to psychotropic medications Limit opioid for pain. Trial of Tramadol No Gabapentin until mental status clears. Renal function is improving slowly. Kayexalate for hyperkalemia Continue IV normal saline. Nephrology input appreciated. Monitor renal function. Sling for right humeral fracture. Continue PT. Patient hypoglycemia this morning. Encourage oral intake.
[2021-01-27] MEDS: TRAMADOL HCL 50 MG TAB PO PRN ×2 (14:13→22:48)
[2021-01-28] MEDS: HEPARIN 5000 UNIT/ML 1 ML VIAL SQ SCH ×2 (02:13→08:10)
[2021-01-28 02:32] VITALS: O2SAT 93
[2021-01-28] MEDS: LEVOTHYROXINE SOD 0.025 MG TAB PO SCH (05:36)
[2021-01-28 06:04] LABS: Absolute Lymphocytes (CBC) 1.2 K/uL (0.7-4.9); Basophils % 0.9 % (0-1.3); Hematocrit 34.2 % (36.0-45.0); Lymphocytes % 21.3 % (15.3-44.8); MPV 9.4 fL (7.6-11.3); RBC Red Blood Cell Count 3.71 M/uL (3.86-4.86)
[2021-01-28 06:13] LABS: Albumin 2.8 g/dL (3.4-5.0); Phosphorus 3.7 mg/dL (2.5-4.9); Potassium 4.7 mmol/L (3.5-5.1)
[2021-01-28] MEDS: AMITRIPTYLINE 50 MG TAB PO SCH (08:09)
[2021-01-28] MEDS: SULFASALAZINE 500 MG E.C. TAB PO SCH (08:09)
[2021-01-28] MEDS ORDERED: NACHLORIDE 0.45% 500 ML IV SCH (12:00)
--- NOTE | 2021-01-28 12:43 | CON ---
Date of Consultation: 01/28/2021 Subjective: The patient is seen at bedside. The patient did require 2 doses of Kayexalate yesterday that had good effect. Potassium has improved. The patient states her p.o. intake remains poor. Agnes kelly only ate a little bit less than half her meal today. She denies any fevers, chills, chest pain, sh ortness of breath, nausea, vomiting, or diarrhea. Her arm pain is controlled with analgesics. Objective: Vital Signs: Blood pressure is 111/58, pulse 62, afebrile. General: No acute distress. Heart: Regular rate and rhythm. No murmurs, rubs, gallops. Lungs: Grossly clear. Abdomen: Soft, nontender, nondistended. Extremities: With no significant edema. Laboratory Data: Sodium 139, potassium 4.7, chloride 111, CO2 24, BUN and creatinine 41/2.14, calciu m 9.4, phosphorus 3.7, albumin 2.8. Current Medications: Reviewed. Impression: 1.Acute kidney injury on suspected underlying chronic kidney disease, stage 3B/4 secondary to acute tubular necrosis, volume depletion, as well as recent use of NSAIDs including Naprosyn and Toradol. 2.Recent fall. 3.Humeral fracture. 4.Hyperkalemia. 5.Anemia. 6.History of rheumatoid arthritis. Plan: Ms. Torrez's renal function is relatively stable. I believe that some of the fluctuations had been seen after the acute insult secondary to poor p.o. intake at this time. 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 I have also ordered a bladder scan to assess for any retention. There is over 250 mL of urine in e bladder. We would recommend Deiv placement. We will start patient on gentle IV fluids as well as a repeat chest x-ray as the patient's exam was s omewhat difficult with poor effort. Monitor analgesia and mental status closely. SE/MODL Voice ID: [id number] Report ID: [id number]
[2021-01-28] MEDS ORDERED: NACHLORIDE 0.45% 1,000 ML IV SCH (13:00)
[2021-01-28 14:32] VITALS: BP 118/65; TEMP 97.4
--- NOTE | 2021-01-28 14:49 | P.DS ---
Admission Date: 01/26/21 Discharge Date: 01/28/21 Disposition: [facility] Discharge Condition: FAIR Reason for Admission: Fall with humeral fracture - Problems (1) Fall Current Visit: Yes Status: Acute (2) Humeral fracture Current Visit: Yes Status: Acute (3) Rheumatoid arthritis Current Visit: Yes Status: Acute (4) Acute renal failure Current Visit: Yes Status: Acute (5) Altered mental status Current Visit: Yes Status: Acute (6) Metabolic encephalopathy Current Visit: Yes Status: Acute Brief History of Present Illness: [age]-year-old woman with a history of rheumatoid arthritis, hypothyroidism was brought to the emergency department after a fall at home. Patient stated she fell when got up from her recliner in the middle of the night to go and sleep on her bed. She thought she might have turned around quickly. She hit the right side of her head and sustained laceration hoahaoism. She could not get up and walk. She developed pain. was woken by their dogs a few hours later and found her lying in a pool of blood. According to the patient responding to him appropriately, no loss of consciousness but she was in pain. She was brought to the emergency department where x-rays showing minimal to moderately displaced right femoral fracture, no dislocation. Patient needing a lot of pain medications for pain control. Patient admitted for further management. Hospital Course: Patient admitted to the medical floor, initially put on fentanyl and oxycodone for pain management. Patient developed nausea and got confused. She did not tolerate opioids. Pain medication changed to tramadol which she tolerated. Repeat CT head was done which was negative for acute bleed or infarct. Patient seen by nephrology for acute renal failure. She also developed hyperkalemia. Patient seen by nephrology will hydrate with IV hydration. Her creatinine was relatively stable. Hyperkalemia was treated with oral Kayexalate. Patient pain and significantly improved. She was initially needing total assistance with transfer but her functional status has improved and now able to transfer with 1 person assist. She also ambulated several feet in the hallway with a walker. Orthopedic surgeon recommended keeping her right upper extremity in a sling, no surgical intervention. Patient has stabilized, confusion has resolved, and she is discharged with home health for physical therapy. She will follow with nephrology as an outpatient regarding her chronic kidney disease. Vital Signs/Physical Exam: Temp Pulse Resp BP Pulse Ox 97.4 F 70 16 118/65 92 01/28/21 12:00 01/28/21 12:00 01/28/21 12:00 01/28/21 12:00 01/28/21 12:00 General: Alert, In no apparent distress, Oriented x3 HEENT: PERRLA, Mucous membr. moist/pink, Other (Right temporal bruise.) Neck: JVD not distended Respiratory: Clear to auscultation bilaterally, Normal air movement Cardiovascular: Regular rate/rhythm, Normal S1 S2 Gastrointestinal: Normal bowel sounds, Soft and benign, Non-distended, No tenderness Musculoskeletal: No erythema Integumentary: No rashes Neurological: Normal strength at 5/5 x4 extr Laboratory Data at Discharge: WBC 5.80 K/uL (4.3-10.9) 01/28/21 05:37 Hgb 10.8 g/dL (12.0-15.0) L 01/28/21 05:37 Hct 34.2 % (36.0-45.0) L 01/28/21 05:37 Plt Count 106 K/uL (152-406) L 01/28/21 05:37 PT 12.7 SECONDS (9.5-12.5) H 01/24/21 06:46 INR 1.10 01/24/21 06:46 Sodium 139 mmol/L (136-145) 01/28/21 05:37 Potassium 4.7 mmol/L (3.5-5.1) 01/28/21 05:37 BUN 41 mg/dL (7-18) H 01/28/21 05:37 Creatinine 2.14 mg/dL (0.55-1.3) H 01/28/21 05:37 Glucose 80 mg/dL (74-106) 01/28/21 05:37 Phosphorus 3.7 mg/dL (2.5-4.9) 01/28/21 05:37 Magnesium 2.0 mg/dL (1.8-2.4) 01/26/21 05:24 Total Bilirubin 0.3 mg/dL (0.2-1.0) 01/24/21 06:46 AST 17 U/L (15-37) 01/24/21 06:46 ALT 17 U/L (12-78) 01/24/21 06:46 Alkaline Phosphatase 88 U/L (45-117) 01/24/21 06:46 Home Medications: ALPRAZolam [Alprazolam] 0.25 mg PO DAILY 01/25/21 Amitriptyline [Elavil*] 50 mg PO BID 01/25/21 Levothyroxine Sodium [Levothyroxine] 25 mcg PO DAILY 01/25/21 sulfaSALAzine [Sulfasalazine] 500 mg PO DAILY 01/25/21 traMADol HCL [Ultram*] 50 mg PO Q6H PRN #20 tab 01/28/21 New Medications: traMADol HCL [Ultram*] 50 mg PO Q6H PRN #20 tab PRN Reason: Pain Scale 5-7 (Moderate) Physician Discharge Instructions: Please you are dvised to stay hydrated by drinking a lot of water, at least 6-8 glasses of water over the next few days. Diet: AHA Activity: Fall precautions Followup: NONE,NONE [Primary Care Provider] - Julio Villarreal DO [ACTIVE - CAN ADMIT] - 1 Week Time spent managing pt's care (in minutes): 33
== END 2021-01-28 16:31 | disposition home health service (06) | DRG 545 ==
LOC: ER 06:16 → ERHOLD 10:48 → 2ND 19:23 → OBSVTOIN 01-26 18:43
PROVIDERS: ADMIT Internal Medicine; ATTEND Internal Medicine
DX: M06.9 Rheumatoid arthritis, unspecified (principal); G93.41 Metabolic encephalopathy; N17.0 Acute kidney failure with tubular necrosis; S42.301A Unspecified fracture of shaft of humerus, right arm, initial encounter for closed fracture; N17.9 Acute kidney failure, unspecified; E03.9 Hypothyroidism, unspecified; I73.00 Raynaud's syndrome without gangrene; J44.9 Chronic obstructive pulmonary disease, unspecified; M81.0 Age-related osteoporosis without current pathological fracture; E86.1 Hypovolemia; N18.30 Chronic kidney disease, stage 3 unspecified; E87.5 Hyperkalemia; E83.42 Hypomagnesemia; D63.8 Anemia in other chronic diseases classified elsewhere; I12.9 Hypertensive chronic kidney disease with stage 1 through stage 4 chronic kidney disease, or unspecified chronic kidney disease; N18.32 Chronic kidney disease, stage 3b; W19.XXXA Unspecified fall, initial encounter
CPT/HCPCS: 36415; 70450; 70486; 71045; 72125; 76377; 80048; 80069; 80076; 81001; 82947; 83735; 83880; 84100; 84484; 85025; 85610; 87086; 87088; 90471; 90714; 93005; 94760; 97116; 97161; 97530; 99285; G0378; J1644; J2270; J2405; J2550; J3010; J3475; J7030

== ENCOUNTER 2021-01-31 04:18 | Emergency (ER) | payer OTHER ==
[2021-01-31] MEDS ORDERED: PROMETHAZINE INJ 25 MG/ML AMP ONE (06:40)
[2021-01-31] MEDS ORDERED: FENTANYL CITR 100 MCG/2 ML ONE (06:41)
--- NOTE | 2021-01-31 07:29 | RAD REPORT ---
EXAM DESCRIPTION: CT - [id number] - 01/31/2021 7:04 am CLINICAL HISTORY: Fall today COMPARISON: 01/24/2021 TECHNIQUE: Axial 5 mm thick images of the head were obtained. Axial 2 mm thick images of the cervica l spine were obtained with sagittal and coronal reconstruction images generated and reviewed. All CT scans are performed using dose optimization technique as appropriate and may include automated exposure control or mA/KV adjustment according to patient size. FINDINGS: No acute fracture or traumatic malalignment of the cervical spine. Mild scattered cervical spondylosis with varying degrees of neural foraminal narrowing. No central spinal stenosis. Trace an terolisthesis of C2 on C3 is similar to 01/24/2021. Nonspecific thyroid nodules noted. The largest in the right lobe of thyroid measures approximately 2 centimeters. Redemonstrated nondisplaced right zygomatic arch fracture. No acute intracranial hemorrhage. No mass effect or midline shift. No hydrocephalus. No mastoid effusion. Paranasal sinuses are well aerated. C erebral atrophy with mild chronic small vessel ischemic changes. . No paraspinal mass or hematoma. IMPRESSION: No acute intracranial abnormality or skull fracture. No acute cervical spine fracture or traumatic malalignment.
--- NOTE | 2021-01-31 08:24 | RAD REPORT ---
EXAM DESCRIPTION: RAD - Foot Left 3 View - 01/31/2021 6:48 am CLINICAL HISTORY: Fall, foot pain COMPARISON: None. FINDINGS: Advanced degenerative changes with complete loss of joint space at the first MTP joint. No fracture or malalignment identified. No radiopaque foreign body. IMPRESSION: No left foot fracture identified.
--- NOTE | 2021-01-31 08:49 | ER ---
Nurse's Notes [facility] Name: Tri Torrez Age: 70 yrs Sex: Female : 1950 Arrival Date: 01/31/2021 Time: 04:20 Bed 3 Private MD: Diagnosis: Unspecified injury of head, initial encounter;Contusion of left foot Presentation: 01/31 05:20 Chief complaint: Patient states: She was recently here 1 week for a fall, released on jb4 the and fell again yesterday at about 1pm. She is still struggling with the pain of the first fall and the pain of the current. Coronavirus screen: Client denies travel out of the [place] in the last 14 days. At this time, the client does not indicate any symptoms associated with coronavirus-19. Ebola Screen: No symptoms or risks identified at this time. Initial Sepsis Screen: Does the patient meet any 2 criteria? RR > 20 per min. Yes Does the patient have a suspected source of infection? No. Patient's initial sepsis screen is negative. Risk Assessment: Do you want to hurt yourself or someone else? Patient reports no desire to harm self or others. Onset of symptoms was January 31, 2021. Transition of care: patient was not received from another setting of care. 05:20 Method Of Arrival: Wheelchair jb4 05:20 Acuity: IVETH 3 jb4 Historical: - Allergies: 05:26 Codeine; jb4 05:26 Sulfa; jb4 - Home Meds: 05:26 alendronate 70 mg Oral tab once wkly [Active]; alprazolam 0.25 mg Oral tab 1 tab daily jb4 [Active]; amitriptyline 50 mg Oral tab 2 times per day [Active]; levothyroxine 25 mcg tab [Active]; omeprazole 20 mg Oral cpDR 1 cap 2 times per day [Active]; sulfasalazine 500 mg Oral tab 2 tab after meals [Active]; VItamin D \T\ E [Active]; - PMHx: 05:26 born with 1 kidney; COPD; Hypothyroidism; Osteoporosis; Raynaud's Disease; Rheumatoid jb4 Arthritis; Scleroderma; - PSHx: 05:26 hysterectomy; jb4 - Immunization history:: Adult Immunizations up to date. - Social history:: Smoking status: Patient denies any tobacco usage or history of. Patient/guardian denies using alcohol, street drugs. Screenin:39 Abuse screen: Denies threats or abuse. Nutritional screening: No deficits noted. ea Tuberculosis screening: No symptoms or risk factors identified. Fall Risk None identified. Assessment: 05:37 General: Appears uncomfortable, Behavior is appropriate for age. Pain: Complains of ea pain in right arm. Neuro: Level of Consciousness is awake, alert, obeys commands, Oriented to person, place, time. Respiratory: Airway is patent Respiratory effort is even, Respiratory pattern is tachypnea. Derm: Skin is dry, Skin is pale, Skin temperature is warm. 06:57 Reassessment: Patient and/or family updated on plan of care and expected duration. Pain ea level reassessed. Patient is alert, oriented x 3, equal unlabored respirations, skin warm/dry/pink. Pt taken to CT. 07:28 Reassessment: Patient and/or family updated on plan of care and expected duration. Pain jd3 level reassessed. Patient is alert, oriented x 3, equal unlabored respirations, skin warm/dry/pink. General: Appears in no apparent distress. comfortable, Behavior is appropriate for age. Pain: Complains of pain in right arm Quality of pain is described as aching, tender. Neuro: Level of Consciousness is awake, alert, obeys commands, Oriented to person, place, time. Cardiovascular: Capillary refill < 3 seconds Patient's skin is warm and dry. Respiratory: Airway is patent Respiratory effort is even, Respiratory pattern is regular, tachypnea. GI: No signs and/or symptoms were reported involving the gastrointestinal system. : No signs and/or symptoms were reported regarding the genitourinary system. EENT: No signs and/or symptoms were reported regarding the EENT system. Derm: Skin is intact, Skin is dry, Skin is normal, Skin temperature is warm. 08:48 Reassessment: Patient appears in no apparent distress at this time. No changes from jd3 previously documented assessment. Patient and/or family updated on plan of care and expected duration. Pain level reassessed. Patient is alert, oriented x 3, equal unlabored respirations, skin warm/dry/pink. 09:30 Reassessment: Patient appears in no apparent distress at this time. No changes from jd3 previously documented assessment. Patient and/or family updated on plan of care and expected duration. Pain level reassessed. Patient is alert, oriented x 3, equal unlabored respirations, skin warm/dry/pink. 10:29 Reassessment: Patient appears in no apparent distress at this time. Patient and/or jd3 family updated on plan of care and expected duration. Pain level reassessed. Patient is alert, oriented x 3, equal unlabored respirations, skin warm/dry/pink. Patient states feeling better. Vital Signs: 05:20 BP 143 / 73; Pulse 50; Resp 34; Temp 98.6(O); Pulse Ox 95% on R/A; Weight 68.04 kg (R); jb4 Height 5 ft. 4 in. (162.56 cm); Pain 10/10; 08:48 BP 98 / 72; Pulse 55; Resp 25 S; Pulse Ox 95% on 2 lpm NC; jd3 10:32 Pulse 56; Resp 22 S; Pulse Ox 94% on R/A; jd3 05:20 Body Mass Index 25.75 (68.04 kg, 162.56 cm) jb4 ED Course: 04:20 Patient arrived in ED. ag3 05:26 Triage completed. jb4 05:26 Arm band placed on right wrist. jb4 05:39 Patient has correct armband on for positive identification. Bed in low position. Call ea light in reach. Side rails up X2. 06:08 Jeff Nair PA is PHCP. jmm 06:08 Maik Monae MD is Attending Physician. jmm 06:29 Inserted saline lock: 22 gauge in left forearm, using aseptic technique. ea 06:48 Foot Left 3 View XRAY In Process Unspecified. EDMS 07:04 CT Head C Spine In Process Unspecified. EDMS 07:28 Jose Barreto RN is Primary Nurse. jd3 10:29 No provider procedures requiring assistance completed. IV discontinued, intact, jd3 bleeding controlled, No redness/swelling at site. Pressure dressing applied. Administered Medications: 06:27 Drug: fentaNYL (PF) 50 mcg Route: IVP; Site: left forearm; ea 07:20 Follow up: Response: No adverse reaction; RASS: Alert and Calm (0) jd3 06:29 Drug: Promethazine 12.5 mg Route: IVP; Site: left forearm; ea 07:20 Follow up: Response: No adverse reaction jd3 Outcome: 08:48 Discharge ordered by . maya 10:29 Discharged to home via wheelchair, with family. jd3 10:29 Condition: stable 10:29 Discharge instructions given to patient, family, Instructed on discharge instructions, follow up and referral plans. medication usage, Demonstrated understanding of instructions, follow-up care, medications, Prescriptions given X 1. 10:32 Patient left the ED. jd3 Signatures: Dispatcher [employer] EDMS Jeff Nair PA PA jmm Bryson, James, RN RN jb4 Kaity Watkins RN RN Jose Arnold RN RN jd3 Lita Goodson3 Corrections: (The following items were deleted from the chart) 06:29 06:29 Promethazine 12.5 mg IVP in left femoral ea ea 06:34 06:33 Patient admitted, IV remains in place. ea ea 0634 06:33 Condition: stable ea ea :34 06:33 Instructed on the need for admit, Demonstrated understanding of instructions, ea ea :34 06:33 Admitted to Med/surg accompanied by nurse, via stretcher, with oxygen, with ea chart, Report called to Receiving nurse on fourth floor ea
--- NOTE | 2021-01-31 08:49 | EDPHYS ---
Physician Documentation [facility] [place] [place] Name: Tri Torrez Age: 70 yrs Sex: Female : 1950 Arrival Date: 01/31/2021 Time: 04:20 Bed 3 Private MD: ED Physician Maik Monae HPI: 01/31 06:20 This 70 yrs old Female presents to ER via Wheelchair with complaints of Body jmm Aches. 06:20 Details of fall: The patient fell from an upright position. Onset: The symptoms/episode jmm began/occurred acutely, just prior to arrival. Associated injuries: The patient sustained injury to the head, neck injury. The patient has experienced similar episodes in the past. This is a 70 year old female with a history of copd, hypothyroidism, that presents to the ED with complaints of headache and left foot pain following a mechanical fall which occurred just prior to arrival. Patient denies LOC, vomiting. Patient is 1 week s/p right humeral fracture. . Historical: - Allergies: 05:26 Codeine; jb4 05:26 Sulfa; jb4 - Home Meds: 05:26 alendronate 70 mg Oral tab once wkly [Active]; alprazolam 0.25 mg Oral tab 1 tab daily jb4 [Active]; amitriptyline 50 mg Oral tab 2 times per day [Active]; levothyroxine 25 mcg tab [Active]; omeprazole 20 mg Oral cpDR 1 cap 2 times per day [Active]; sulfasalazine 500 mg Oral tab 2 tab after meals [Active]; VItamin D \T\ E [Active]; - PMHx: 05:26 born with 1 kidney; COPD; Hypothyroidism; Osteoporosis; Raynaud's Disease; Rheumatoid jb4 Arthritis; Scleroderma; - PSHx: 05:26 hysterectomy; jb4 - Immunization history:: Adult Immunizations up to date. - Social history:: Smoking status: Patient denies any tobacco usage or history of. Patient/guardian denies using alcohol, street drugs. ROS: 06:20 Constitutional: Negative for fever, chills, and weight loss, Cardiovascular: Negative jmm for chest pain, palpitations, and edema, Respiratory: Negative for shortness of breath, cough, wheezing, and pleuritic chest pain. 06:20 MS/extremity: Positive for foot pain. 06:20 Neuro: Positive for headache. 06:20 All other systems are negative. Exam: 06:20 Constitutional: This is a well developed, well nourished patient who is awake, alert, jmm and in no acute distress. Head/Face: atraumatic. Eyes: EOMI, no conjunctival erythema appreciated ENT: Moist Mucus Membranes Neck: Trachea midline, Supple Chest/axilla: Normal chest wall appearance and motion. Cardiovascular: Regular rate and rhythm. No edema appreciated Respiratory: Normal respirations, no respiratory distress appreciated Abdomen/GI: Non distended, soft Back: Normal ROM Skin: General appearance color normal 06:20 Musculoskeletal/extremity: ROM: intact in all extremities, left lateral foot pain on palpation, compartments are soft, full dorsalis pulse, nvi. 06:20 Skin: Appearance: Color: normal in color. 06:20 Neuro: Orientation: is normal, Mentation: is normal, Memory: is normal. 06:20 Psych: Behavior/mood is pleasant, cooperative. Vital Signs: 05:20 BP 143 / 73; Pulse 50; Resp 34; Temp 98.6(O); Pulse Ox 95% on R/A; Weight 68.04 kg (R); jb4 Height 5 ft. 4 in. (162.56 cm); Pain 10/10; 08:48 BP 98 / 72; Pulse 55; Resp 25 S; Pulse Ox 95% on 2 lpm NC; jd3 10:32 Pulse 56; Resp 22 S; Pulse Ox 94% on R/A; jd3 05:20 Body Mass Index 25.75 (68.04 kg, 162.56 cm) jb4 MDM: 06:15 Patient medically screened. [facility] 08:46 Data reviewed: vital signs, nurses notes. Counseling: I had a detailed discussion with maya the patient and/or guardian regarding: the historical points, exam findings, and any diagnostic results supporting the discharge/admit diagnosis, radiology results, the need for outpatient follow up, to return to the emergency department if symptoms worsen or persist or if there are any questions or concerns that arise at home. ED course: Imaging studies negative. Patient is advised to follow up with pcp and otherwise given strict return precautions. Patient understood and agrees with the plan of care. . 01/31 06:16 Order name: CT Head C Spine; Complete Time: 07:55 [facility] 01/31 06:16 Order name: Foot Left 3 View XRAY; Complete Time: 08:33 [facility] 01/31 06:16 Order name: Saline Lock; Complete Time: 06:29 [facility] Administered Medications: 06:27 Drug: fentaNYL (PF) 50 mcg Route: IVP; Site: left forearm; ea 07:20 Follow up: Response: No adverse reaction; RASS: Alert and Calm (0) jd3 06:29 Drug: Promethazine 12.5 mg Route: IVP; Site: left forearm; ea 07:20 Follow up: Response: No adverse reaction jd3 Disposition Summary: 01/31/21 08:48 Discharge Ordered Location: Home [facility] Condition: Stable [facility] Diagnosis - Unspecified injury of head, initial encounter [facility] - Contusion of left foot [facility] Followup: [facility] - With: Private Physician - When: 2 - 3 days - Reason: Recheck today's complaints, Continuance of care, Re-evaluation by your physician Discharge Instructions: - Discharge Summary Sheet [facility] - Head Injury, Adult [facility] Forms: - Medication Reconciliation Form [facility] - Thank You Letter [facility] - Antibiotic Education [facility] - Prescription Opioid Use [facility] Prescriptions: - orphenadrine citrate 100 mg Oral Tablet Sustained Release - take 1 tablet by ORAL route 2 times per day As needed; 20 tablet; Refills: 0, [facility] Product Selection Permitted Addendum: 02/03/2021 06:26 Co-signature as Attending Physician, Maik Monae MD. [facility] Signatures: Dispatcher [employer] Jeff Snell PA PA jmm Bryson, James, RN RN jb4 Kaity Watkins RN RN ea Holmes, Maurice, MD MD mh7 Jose Barreto RN jd3
[2021-01-31 10:42] VITALS: TEMP 98.6
[2021-01-31 10:44] VITALS: BP 98/72
[2021-01-31 10:45] VITALS: O2SAT 94
--- OUTSIDE RECORDS SUMMARY | 2021-01-31 15:05 | XMS REPORT | Continuity of Care Document ---
:1950 Author Organization [facility] t Address [address] [place] [address] [address] [place] [address] Care Team Providers Name Role Phone Doctor [...] ID 2020-06-19 2020-06-19 Orders Doctor MARIBEL [id number] 00:00:00 00:00:00 Only UnassignedBIA [id number] [place] [facility] [id number] Results This patient has no known results.
== END 2021-01-31 10:32 | disposition home or self-care (01) ==
LOC: ER 04:18
DX: S09.90XA Unspecified injury of head, initial encounter (principal); S90.32XA Contusion of left foot, initial encounter; W19.XXXA Unspecified fall, initial encounter; Z88.2 Allergy status to sulfonamides; Z88.5 Allergy status to narcotic agent; E03.9 Hypothyroidism, unspecified; J44.9 Chronic obstructive pulmonary disease, unspecified
CPT/HCPCS: 70450; 72125; 73630; 96375; 96374; 99284; J2550; J3010

== ENCOUNTER 2021-02-05 15:27 | Inpatient (IN) | payer OTHER ==
--- OUTSIDE RECORDS SUMMARY | 2021-02-05 15:30 | XMS REPORT | Continuity of Care Document ---
:1950 Author Organization [facility] t Address [address] [place] [address] [address] [place] [address] Care Team Providers Name Role Phone Doctor [...] ID 2020-06-19 2020-06-19 Orders Doctor MARIBEL [id number] 00:00:00 00:00:00 Only UnassignedBIA [id number] [place] [facility] [id number] Results This patient has no known results.
[2021-02-05] MEDS ORDERED: METHYLPREDNISOLONE 125 MG INJ ONE (16:04)
[2021-02-05] MEDS ORDERED: LEVALBUTEROL 1.25 MG/3 ML NEB ONE (16:05)
--- NOTE | 2021-02-05 16:40 | RAD REPORT ---
EXAM DESCRIPTION: RAD - Chest Single View - 02/05/2021 4:22 pm CLINICAL HISTORY: DYSPNEA COMPARISON: Portable January 24 TECHNIQUE: AP portable chest image was obtained 02/05/2021 4:22 pm . FINDINGS: Extensive interstitial opacification is present in a pattern not substantially different f rom comparison. Patient has previously demonstrated chronic interstitial lung disease. Superimposed i nterstitial edema or infiltrate can easily be masked in this setting. Trachea is midline. Heart and vasculature are normal. No measurable pleural effusion and no pneumotho rax. No acute bony abnormality seen. No acute aortic findings. Densely calcified breast implant capsu les are seen. IMPRESSION: Extensive chronic interstitial lung disease similar to January 24. Interstitial edema and infiltrate can be masked by the severity chronic disease.
[2021-02-05] MEDS ORDERED: LORazepam 2 MG/ML VIAL ONE (17:04)
[2021-02-05 17:06] LABS: Absolute Lymphocytes (CBC) 1.7 K/uL (0.7-4.9); Basophils % 0.7 % (0-1.3); Lymphocytes % 16.6 % (15.3-44.8); MPV 9.5 fL (7.6-11.3); RBC Red Blood Cell Count 4.46 M/uL (3.86-4.86)
[2021-02-05 17:08] LABS: Protime INR 1.11
[2021-02-05 17:21] LABS: Potassium 4.5 mmol/L (3.5-5.1); Troponin (Emerg Dept Use Only) 0.08 ng/mL (0.0-0.045)
--- NOTE | 2021-02-05 17:46 | RAD REPORT ---
EXAM DESCRIPTION: US - UPPER EXTREMITY VENOUS UNILATE - 02/05/2021 5:29 pm CLINICAL HISTORY: Right arm pain and swelling COMPARISON: None. TECHNIQUE: Real-time sonographic evaluation of the right upper extremity deep venous systems was per formed. FINDINGS: Exam was limited. Patient had arm fracture with limited range of motion. Normal compressibility, flow augmentation, phasic flow and spontaneous flow are identified in the rig ht upper extremity deep venous system. No intraluminal filling defects seen. Internal jugular and sub clavian veins are normal as well. IMPRESSION: No DVT in the right upper extremity.
--- NOTE | 2021-02-05 17:54 | RAD REPORT ---
EXAM DESCRIPTION: CT - Thorax Wo Con - 02/05/2021 5:36 pm CLINICAL HISTORY: DYSPNEA COMPARISON: Head C Spine Mpr Wo Con dated 01/31/2021; Chest Single View dated 02/05/2021 TECHNIQUE: Axial 5 mm thick images of the chest were obtained without IV contrast. All CT scans are performed using dose optimization technique as appropriate and may include automated exposure control or mA/KV adjustment according to patient size. FINDINGS: Approximately 2.3 centimeter inferior right thyroid lobe nodule is present not fully evalu ated on this study. Follow-up sonography can be performed as warranted. Patient has extensive subpleural bulla and bleb formation with areas of scarred parenchyma. Interstit ial pattern overall is prominent in the baseline severity can mask early edema or infiltrate. No foca l consolidation or mass. No abscess or area cavitation seen. No pleural thickening or pleural effusio n. No pneumothorax. No abnormal mediastinal or hilar masses or lymphadenopathy seen. No gross aortic or pulmonary artery finding suspected. Assessment is limited in the absence of IV contrast. No cardiomegaly. No chest wall mass or abnormal axillary lymphadenopathy. Patient has bilateral densely calcified veronica st implant capsules. Dilated esophagus is present with air-fluid level in the distal esophagus. The mass is not identified at the GE junction. IMPRESSION: Extensive fibro emphysematous lung pattern with no focal consolidation or mass. Approximately 2 centimeter inferior right thyroid lobe nodule. This has been previously identified on CT imaging but is not been further characterized with sonography. Outpatient follow-up sonography ca n be performed as warranted.
--- NOTE | 2021-02-05 18:12 | ER ---
Nurse's Notes [facility] Name: Tri Torrez Age: 70 yrs Sex: Female : 1950 Arrival Date: 02/05/2021 Time: 15:30 Bed 8 Private MD: Diagnosis: COPD/ Chronic obstructive pulmonary disease with (acute) exacerbation;Acute pulmonary edema;Hypoxemia;Dyspnea, unspecified Presentation: 02/05 15:33 Acuity: IVETH 1 ca1 15:50 Chief complaint: Patient states: difficulty breathing that began 45 minutes prior to ss arrival. Hx of COPD. Coronavirus screen: Client denies travel out of the [place] in the last 14 days. Ebola Screen: Patient denies exposure to infectious person. Patient denies travel to an Ebola-affected area in the 21 days before illness onset. Initial Sepsis Screen: Does the patient meet any 2 criteria? RR > 20 per min. Does the patient have a suspected source of infection? No. Patient's initial sepsis screen is negative. Risk Assessment: Do you want to hurt yourself or someone else? Patient reports no desire to harm self or others. Onset of symptoms was February 05, 2021. 15:50 Method Of Arrival: Wheelchair ss Historical: - Allergies: 15:52 Codeine; nausea; ss - PMHx: 15:52 born with 1 kidney; COPD; Hypothyroidism; Osteoporosis; Raynaud's Disease; Rheumatoid ss Arthritis; Scleroderma; - PSHx: 15:52 hysterectomy; ss - Immunization history:: Adult Immunizations up to date. - Social history:: Smoking status: Patient/guardian denies using tobacco, but has a distant history of tobacco abuse. - Family history:: not pertinent. - Hospitalizations: : No recent hospitalization is reported. Screenin:17 Abuse screen: Denies threats or abuse. Denies injuries from another. Nutritional sv screening: No deficits noted. Tuberculosis screening: No symptoms or risk factors identified. Fall Risk None identified. Assessment: 15:50 General: Appears in no apparent distress. uncomfortable, well developed, Behavior is sv cooperative, anxious. Pain: Denies pain. Neuro: Level of Consciousness is awake, alert, obeys commands, Oriented to person, place, time, situation, Weakness in right arm(s). Cardiovascular: Patient's skin is warm and dry. Rhythm is sinus rhythm. Respiratory: Reports shortness of breath Airway is patent Respiratory effort is even, labored, Respiratory pattern is hyperventilation. Derm: Skin is normal. Musculoskeletal: Range of motion: limited in right shoulder and right elbow Family stated that she has a fracture to her right arm and right face. Pt currently has a arm sling on her right arm. 16:10 Reassessment: Pt placed on Hi flow O2 \T\ 20L 50% FiO2. sv 16:46 Reassessment: Ultrasound at the bedside. sv 16:58 Reassessment: Patient appears in no apparent distress at this time. Patient and/or sv family updated on plan of care and expected duration. Pain level reassessed. Patient is alert, oriented x 3, equal unlabored respirations, skin warm/dry/pink. 17:11 Reassessment: Patient appears in no apparent distress at this time. Patient and/or sv family updated on plan of care and expected duration. Pain level reassessed. Patient is alert, oriented x 3, equal unlabored respirations, skin warm/dry/pink. Patient states symptoms have improved. 17:37 Reassessment: Pt currently in CT. sv 17:56 Reassessment: Patient appears in no apparent distress at this time. Patient and/or sv family updated on plan of care and expected duration. Pain level reassessed. Patient is alert, oriented x 3, equal unlabored respirations, skin warm/dry/pink. Patient states feeling better. Patient states symptoms have improved. 18:57 Reassessment: Patient appears in no apparent distress at this time. Patient and/or sv family updated on plan of care and expected duration. Pain level reassessed. Patient is alert, oriented x 3, equal unlabored respirations, skin warm/dry/pink. Family at the bedside. 20:26 Reassessment: Hospitalist at bedside updating pt on plan of care. ea 20:34 Reassessment: Patient and/or family updated on plan of care and expected duration. Pain ak2 level reassessed. Vital Signs: 15:33 BP 100 / 54; Pulse 77; Resp 32 S; Temp 97.2(TE); Pulse Ox 82% on R/A; Weight 68.04 kg; ss Pain 0/10; 15:45 BP 100 / 54; Pulse 69 MON; Resp 31; sv 17:11 BP 119 / 69; Pulse 65; Resp 30; sv 17:35 Pulse 63; Resp 18; sv 18:00 BP 125 / 80; Pulse 67; Resp 18; Pulse Ox 95% on 4 lpm NC; sv 18:50 BP 136 / 89; Pulse 61; Resp 25; Pulse Ox 95% on 4 lpm NC; sv 20:34 BP 122 / 81; Pulse 65; Resp 20; Pulse Ox 96% ; ak2 15:45 Sinus Rhythm sv 17:11 HI-flow O2 20L FiOw 50% sv 17:35 Pt on O2 \T\ 4L per NC. sv ED Course: 15:30 Patient arrived in ED. rg4 15:34 Triage completed. ca1 15:34 Arm band placed on right wrist. Patient placed in an exam room, on oxygen, on pulse ca1 oximetry. 15:36 Davion Herman MD is Attending Physician. rn 15:42 Noemi Kitchen, TIFFANIE is Primary Nurse. sv 16:05 Patient has correct armband on for positive identification. Bed in low position. Call sv light in reach. Side rails up X2. Adult w/ patient. property assessment monitor on. Pulse ox on. NIBP on. Door closed. Warm blanket given. Head of bed elevated. 16:07 Missed attempt(s): 22 gauge in left forearm. Bleeding controlled, band aid applied, sv catheter tip intact. 16:16 X-ray(s) taken. sv 16:22 XRAY CXR (1 view) In Process Unspecified. EDMS 16:45 Inserted inserted 10 cm, 20 gauge power glide midline to L upper arm using aseptic ss technique. Pt tolerated well. 16:46 BMP Sent. sv 17:10 UPPER EXTREMITY VENOUS UNILATE In Process Unspecified. EDMS 17:36 Thorax Wo Con In Process Unspecified. EDMS 17:56 Awaiting lab results, Awaiting radiology results. sv 18:11 Larry Busby DO is Hospitalizing Provider. rn 19:01 Primary Nurse role handed off by Noemi Kitchen, TIFFANIE mw2 19:09 Report given to Agustín MORENO and Kaity MORENO. sv 20:26 No provider procedures requiring assistance completed. Patient admitted, IV remains in ea place. 02/06 07:35 Yana Estevez, TIFFANIE is Primary Nurse. tw2 Administered Medications: 02/05 15:55 Drug: Xopenex (levalbuterol) 1.25 mg Route: Inhalation; sv 16:38 Drug: SOLU-Medrol (methylPrednisoLONE) 125 mg Route: IVP; Site: left upper arm; ss 17:00 Follow up: Response: No adverse reaction sv 16:41 CANCELLED (Duplicate Order): Valium (diazepam) 2 mg PO once rn 16:46 Drug: Ativan (LORazepam) 0.5 mg Route: IVP; Site: left upper arm; sv 17:57 Follow up: Response: No adverse reaction sv 18:57 Drug: Lasix (furosemide) 40 mg Route: IVP; Site: left upper arm; sv Outcome: 18:11 Decision to Hospitalize by Provider. rn 20:26 Admitted to ER Hold. Please see [facility] for further documentation. linnette 20:26 Condition: stable 20:26 Instructed on the need for admit. 02/06 11:26 Patient left the ED. tw2 Signatures: Dispatcher [employer] EDNoemi Lind RN RN Davion Herman MD MD rn Smirch, Shelby, RN RN Yana Estevez RN RN tw2 Alaina Singh rg4 Kaity Watkins RN RN Mary Ann Grissom mw2 Casandra Oh RN RN [facility] Neftali Canales ak2 Corrections: (The following items were deleted from the chart) 02/05 17:28 15:33 Pulse 77bpm; Resp 32bpm; Spontaneous; Pulse Ox 82% RA; ca1 ss
--- NOTE | 2021-02-05 18:13 | EDPHYS ---
Physician Documentation [facility] Name: Tri Torrez Age: 70 yrs Sex: Female : 1950 Arrival Date: 02/05/2021 Time: 15:30 Bed 8 Private MD: ED Physician Davion Herman HPI: 02/05 15:39 This 70 yrs old Female presents to ER via Unassigned with complaints of rn Breathing Difficulty. 15:39 The patient has shortness of breath at rest. Onset: The symptoms/episode began/occurred rn just prior to arrival. Duration: The symptoms are continuous. The patient's shortness of breath is aggravated by nothing, is alleviated by nothing. Associated signs and symptoms: Pertinent positives: SOB, Pertinent negatives: chest pain, non-productive cough, productive cough, diaphoresis, dizziness, fever, hemoptysis, loss of consciousness. Severity of symptoms: At their worst the symptoms were moderate in the emergency department the symptoms have improved. The patient has experienced similar episodes in the past. The patient has been recently seen by a physician:. Sent by Dr. Echeverria for sob and dyspnea, no fever, no recent rib or thoracic injury. + COPD. Family reports sob that just began approx 45 min ago. Has Raynaud's so not sure if oxygen saturation is accurate right now. No abd pain. No chest pain. . Historical: - Allergies: 15:52 Codeine; nausea; ss - PMHx: 15:52 born with 1 kidney; COPD; Hypothyroidism; Osteoporosis; Raynaud's Disease; Rheumatoid ss Arthritis; Scleroderma; - PSHx: 15:52 hysterectomy; ss - Immunization history:: Adult Immunizations up to date. - Social history:: Smoking status: Patient/guardian denies using tobacco, but has a distant history of tobacco abuse. - Family history:: not pertinent. - Hospitalizations: : No recent hospitalization is reported. ROS: 15:39 Constitutional: Negative for fever, chills, and weight loss, Eyes: Negative for injury, rn pain, redness, and discharge, ENT: Negative for injury, pain, and discharge, Neck: Negative for injury, pain, and swelling, Cardiovascular: Negative for chest pain, palpitations, and edema, Respiratory: + sob Abdomen/GI: Negative for abdominal pain, nausea, vomiting, diarrhea, and constipation, Back: Negative for injury and pain, MS/Extremity: Negative for injury and deformity, Skin: Negative for injury, rash, and discoloration, Neuro: Negative for headache, weakness, numbness, tingling, and seizure. Exam: 15:39 Constitutional: This is a well developed, well nourished patient who is awake, alert, rn + tachypnea that is slowed down with coaching Head/Face: Normocephalic, atraumatic. Eyes: + right periorbital ecchymosis that is green and yellow/healing. Chest/axilla: Normal chest wall appearance and motion. Nontender with no deformity. No lesions are appreciated. Cardiovascular: Regular rate and rhythm. No pulse deficits. Respiratory: + tachypnea, faint wheezing, no retractions Abdomen/GI: soft, non-tender Skin: Warm, dry MS/ Extremity: Pulses equal, no cyanosis Neuro: Awake and alert, GCS 15 Vital Signs: 15:33 BP 100 / 54; Pulse 77; Resp 32 S; Temp 97.2(TE); Pulse Ox 82% on R/A; Weight 68.04 kg; ss Pain 0/10; 15:45 BP 100 / 54; Pulse 69 MON; Resp 31; sv 17:11 BP 119 / 69; Pulse 65; Resp 30; sv 17:35 Pulse 63; Resp 18; sv 18:00 BP 125 / 80; Pulse 67; Resp 18; Pulse Ox 95% on 4 lpm NC; sv 18:50 BP 136 / 89; Pulse 61; Resp 25; Pulse Ox 95% on 4 lpm NC; sv 20:34 BP 122 / 81; Pulse 65; Resp 20; Pulse Ox 96% ; ak2 15:45 Sinus Rhythm sv 17:11 HI-flow O2 20L FiOw 50% sv 17:35 Pt on O2 \\T\\ 4L per NC. sv MDM: 15:37 Patient medically screened. rn 18:09 Differential diagnosis: Anxiety Reaction Bronchitis Chronic Obstructive Pulmonary rn Disease Myocardial Infarction pneumonia, Pneumothorax pulmonary edema, Pulmonary Embolism. Data reviewed: vital signs, nurses notes, lab test result(s), EKG, radiologic studies, CT scan, plain films, ultrasound, and as a result, I will admit patient. Counseling: I had a detailed discussion with the patient and/or guardian regarding: the historical points, exam findings, and any diagnostic results supporting the discharge/admit diagnosis, lab results, radiology results, the need for further work-up and treatment in the hospital. Response to treatment: the patient's symptoms have mildly improved after treatment, and as a result, I will admit patient. Admission orders: after a detailed discussion of the patient's condition and case, the admit orders are written by me. ED course: Pt with elevated BNP and troponin, likely 2/2 CHF, patient denies hx of CHF or taking diuretics. Also component of COPD. UNable to obtain PE study that Dr. Echeverria sent patient for given elevated creatinine, will admit for VQ study and diuresis/cardiology consultation.. 02/05 15:38 Order name: BMP 02/05 15:38 Order name: Blood Culture Adult (2) 02/05 15:38 Order name: CBC with Diff; Complete Time: 09:35 02/05 15:38 Order name: NT PRO-BNP; Complete Time: 17:53 02/05 15:38 Order name: PT-INR; Complete Time: 17:23 02/05 15:38 Order name: Ptt, Activated; Complete Time: 17:23 02/05 15:38 Order name: Troponin (emerg Dept Use Only); Complete Time: 17:53 02/05 15:38 Order name: Basic Metabolic Panel; Complete Time: 17:53 [facility] 02/05 19:38 Order name: CBC Smear Scan; Complete Time: 09:35 [facility] 02/05 20:14 Order name: COVID-19 : Document "Date of Symptom Onset" if Symptomatic. ak2 02/05 20:30 Order name: CORONAVIRUS [facility] 02/05 21:26 Order name: SARS-COV-2 RT PCR; Complete Time: 09:35 [facility] 02/05 22:52 Order name: ABG Arterial Blood Gas; Complete Time: 09:35 [facility] 02/05 15:38 Order name: XRAY CXR (1 view); Complete Time: 16:55 02/05 17:06 Order name: Thorax Wo Con; Complete Time: 17:55 [facility] 02/05 17:09 Order name: UPPER EXTREMITY VENOUS UNILATE; Complete Time: 17:53 [facility] 02/06 00:04 Order name: D-Dimer; Complete Time: 09:35 [facility] 02/06 02:33 Order name: CREATININE WHOLE BLOOD; Complete Time: 09:35 [facility] 02/06 05:32 Order name: CBC with Automated Diff; Complete Time: 09:35 [facility] 02/06 05:41 Order name: PTH Intact; Complete Time: 09:35 [facility] 02/06 06:02 Order name: Troponin I; Complete Time: 09:35 [facility] 02/06 06:12 Order name: Comprehensive Metabolic Panel; Complete Time: 09:35 [facility] 02/06 06:12 Order name: Phosphorus; Complete Time: 09:35 [facility] 02/06 06:12 Order name: Lipid Profile; Complete Time: 09:35 [facility]MS 02/06 06:12 Order name: T4 Free; Complete Time: 09:35 [facility]MS 02/06 06:12 Order name: Magnesium; Complete Time: 09:35 [facility]MS 02/06 06:12 Order name: Thyroid Stimulating Hormone; Complete Time: 09:35 [facility]MS 02/05 15:38 Order name: EKG; Complete Time: 15:39 rn 02/05 15:38 Order name: Cardiac monitoring; Complete Time: 16:19 rn 02/05 15:38 Order name: EKG - Nurse/Tech; Complete Time: 17:37 rn 02/05 15:38 Order name: IV Saline Lock; Complete Time: 16:46 rn 02/05 15:38 Order name: Labs collected and sent; Complete Time: 16:46 rn 12 15:38 Order name: O2 Per Protocol; Complete Time: 16:19 rn 12 15:38 Order name: O2 Sat Monitoring; Complete Time: 16:19 rn 12 20:03 Order name: CONS Physician Consult EDWA 02/06 08:47 Order name: NM; Complete Time: 09:35 EDMS Administered Medications: 15:55 Drug: Xopenex (levalbuterol) 1.25 mg Route: Inhalation; sv 16:38 Drug: SOLU-Medrol (methylPrednisoLONE) 125 mg Route: IVP; Site: left upper arm; ss 17:00 Follow up: Response: No adverse reaction sv 16:41 CANCELLED (Duplicate Order): Valium (diazepam) 2 mg PO once rn 16:46 Drug: Ativan (LORazepam) 0.5 mg Route: IVP; Site: left upper arm; sv 17:57 Follow up: Response: No adverse reaction sv 18:57 Drug: Lasix (furosemide) 40 mg Route: IVP; Site: left upper arm; sv Disposition Summary: 02/05/21 18:11 Hospitalization Ordered Hospitalization Status: Inpatient Admission rn Provider: Larry Busby rn Condition: Stable rn Problem: new rn Symptoms: have improved rn Bed/Room Type: Standard rn Location: Telemetry/MedSurg (Inpatient)(02/06/21 10:26) ca Room Assignment: [facility](02/06/21 10:26) ca Diagnosis - COPD/ Chronic obstructive pulmonary disease with (acute) exacerbation rn - Acute pulmonary edema rn - Hypoxemia rn - Dyspnea, unspecified rn Forms: - Medication Reconciliation Form rn - SBAR form rn Signatures: Dispatcher [employer] EDMS Noemi Kitchen RN RN Davion Rodriguez MD MD rn Smirch, Shelby RN RN Ashlie Rivera, RN Geno Rivera ca Corrections: (The following items were deleted from the chart) 16:41 16:41 Valium (diazepam) 2 mg PO once ordered. rn rn 17:06 15:38 Chest For PE Angio+CT.RAD.BRZ ordered. EDMS EDMS 17:09 15:39 Extremity Venous Uni Ltd+US.RAD.BRZ ordered. EDMS EDMS 21:10 18:11 Telemetry/MedSurg (Inpatient) rn cg 21:10 18:11 rn cg 02/06 10:26 02/05 21:10 [facility] ER HOLD cg mt 02/06 10:26 02/05 21:10 ERHOLD- cg ca
[2021-02-05] MEDS ORDERED: FUROSEMIDE 40 MG/4 ML VIAL ONE (18:29)
[2021-02-05 19:38] LABS: Anisocytosis 1+; Blood Morphology Comment NOTED (NOT SEEN); Platelet Estimate ADEQ; Poikilocytosis 1+; White Blood Cell Scan OK (OK)
[2021-02-05] MEDS ORDERED: ONDANSETRON 4 MG/2 ML VIAL IV PRN (22:13)
[2021-02-05] MEDS ORDERED: NA CHLORIDE 0.9% 1,000 ML IV SCH (22:13)
[2021-02-05] MEDS ORDERED: ALBUTEROL 2.5 MG/3 ML NEB SOL NEB PRN (22:13)
[2021-02-05 22:51] LABS: Arterial Blood Carboxyhemoglob 0.4 % (0-1.5); Blood Gas Oxyhemoglobin 91.4 % (94-97); Blood O2 Saturation 95.2 % (92-98.5)
[2021-02-05 22:55] VITALS: BMI 24.1
[2021-02-05] MEDS: ACETAMINOPHEN 500 MG TAB PO PRN (23:04)
[2021-02-05] MEDS ORDERED: ACETAMINOPHEN 500 MG TAB ONE (23:25)
[2021-02-06] MEDS ORDERED: HEPARIN/D5W 25,000 UNIT/500 ML BAG IV SCH ×3 (01:00→12:00)
[2021-02-06] MEDS ORDERED: HEPARIN 5000 UNIT/ML 1 ML VIAL SQ SCH (01:00)
[2021-02-06] MEDS: METHYLPREDNISOLONE 40 MG INJ IV SCH ×3 (01:00→16:27)
[2021-02-06] MEDS: IPRATROPIUM BROM 0.5MG/2.5ML NEB SCH ×4 (01:15→19:50)
[2021-02-06] MEDS ORDERED: IPRATROPIUM BROM 0.5MG/2.5ML ONE (01:42)
[2021-02-06] MEDS ORDERED: HEPARIN 5000 UNIT/ML 1 ML VIAL ONE (02:10)
[2021-02-06] MEDS ORDERED: METHYLPREDNISOLONE 40 MG INJ ONE ×2 (02:11→09:16)
--- NOTE | 2021-02-06 02:50 | P.HP ---
Certification for Inpatient Patient admitted to: Inpatient With expected LOS: >2 Midnights Patient will require the following post-hospital care: None Practitioner: I am a practitioner with admitting privileges, knowledge of patient current condition, hospital course, and medical plan of care. Services: Services provided to patient in accordance with Admission requirements found in Title 42 Section 412.3 of the Code of Federal Regulations Patient History Date of Service: 02/05/21 Reason for admission: SOB History of Present Illness: Ms. Torrez is a 70 yo F with RA, Raynaud's, scleoderma, hypothyroidism, and COPD here today for SOB that has been worsening over the past 4 weeks. Mild relief of symptoms with albuterol inhaler. Reports worsening of symptoms with anxiety and when walking. Reports cough but denies sputum, wheezing, orthopnea, PND, and edema. Sent to ED by PCP for rule out of PE. Cannot tolerate CTPE due to kidney function. CT w/o contrast showed extensive fribro emphysematous lung pattern with no focal consolidation or mass. Quit smoking 10 years ago. BUN 32, Cr 2.36, GFR 20. Ca2+ 12.1. Trop 0.08, BNP 6151. EKG wnl. Ddimer 4178. Received lasix, zoponex, ativan, and solumedrol in the ED. Admitted for further evaluation and treatment. Allergies codeine Allergy (Verified 01/24/21 20:25) throwing up Sulfa (Sulfonamide Antibiotics) Allergy (Verified 01/24/21 20:25) Itching/Hives/Rash Home Medications: ALPRAZolam [Alprazolam] 0.25 mg PO DAILY 01/25/21 Amitriptyline [Elavil*] 50 mg PO BID 01/25/21 Levothyroxine Sodium [Levothyroxine] 25 mcg PO DAILY 01/25/21 sulfaSALAzine [Sulfasalazine] 500 mg PO DAILY 01/25/21 traMADol HCL [Ultram*] 50 mg PO Q6H PRN #20 tab 01/28/21 - Past Medical/Surgical History Has patient received pneumonia vaccine in the past: Yes Diabetic: No -: Rheumatoid arthritis -: Raynaud's disease -: Hypothyroidism -: COPD -: Hysterectomy -: Rectal reconstruction surgery - Family History Father -: Cancer Brother -: Cancer - Social History Smoking Status: Former smoker Alcohol use: No CD- Drugs: No Caffeine use: No Place of Residence: Home Review of Systems 10-point ROS is otherwise unremarkable Respiratory: Cough, Shortness of Breath, SOB with Excertion Physical Examination - Vital Signs Blood Pressure: 131/72 Pulse: 71 Respirations: 18 Pulse Ox (%): 96 - Physical Exam General: Alert, In no apparent distress HEENT: Atraumatic, PERRLA, Mucous membr. moist/pink, EOMI, Sclerae nonicteric Neck: Supple, 2+ carotid pulse no bruit, No LAD, Without JVD or thyroid abnormality Respiratory: Diminished Cardiovascular: Regular rate/rhythm, Normal S1 S2 Gastrointestinal: Normal bowel sounds, No tenderness Musculoskeletal: No tenderness Integumentary: No rashes Neurological: Normal speech, Normal strength at 5/5 x4 extr, Normal tone, Normal affect Lymphatics: No axilla or inguinal lymphadenopathy - Studies Laboratory Data (last 24 hrs) 02/05/21 16:36: PT 12.8 H, INR 1.11, APTT 32.4 02/05/21 16:36: WBC 10.00 D, Hgb 12.6, Hct 40.0 D, Plt Count 310 D 02/05/21 16:36: Sodium 138, Potassium 4.5, BUN 32 H, Creatinine 2.36 H, Glucose 93 Assessment and Plan - Plan Assessment SOB, rule out PE, COPD vs CHF exacerbation COPD Hypothyroidism Scleroderma Raynaud's RA Plan SOB, rule out PE, COPD vs CHF exacerbation - V/Q scan pending. continue heparin drip protocol in the interim due to SOB and elevated Ddimer. ABG pending. trend troponin, ECHO pending. will consider continuing Lasix but no current signs of volume overload. RADHA on CKD, hypercalcemia - gentle fluid hydration, nephrology consulted COPD - breathing treatments and O2 PRN, IV steroids, pulmonary and respiratory therapy consulted Hypothyroidism - stable, continue home medications Scleroderma - stable, continue home medications Raynaud's - stable, continue home medications RA - stable, continue home medications Discharge Plan: Home Plan to discharge in: 48 Hours - Advance Directives Does patient have a Living Will: No Does patient have a Durable POA for Healthcare: No - Code Status/Comfort Care Code Status Assessed: Yes (full code ) Critical Care: No Time Spent Managing Pts Care (In Minutes): 70
[2021-02-06 05:31] LABS: Absolute Lymphocytes (CBC) 1.1 K/uL (0.7-4.9); Basophils % 0.4 % (0-1.3); Hematocrit 40.3 % (36.0-45.0); Lymphocytes % 12.4 % (15.3-44.8); MPV 8.1 fL (7.6-11.3); RBC Red Blood Cell Count 4.54 M/uL (3.86-4.86)
[2021-02-06 06:02] LABS: Albumin 3.8 g/dL (3.4-5.0); Bilirubin Total 0.7 mg/dL (0.2-1.0); Phosphorus 4.5 mg/dL (2.5-4.9); Potassium 4.2 mmol/L (3.5-5.1); Protein, Total 7.6 g/dL (6.4-8.2); Thyroid Stimulating Hormone 2.31 uIU/mL (0.360-3.740)
--- NOTE | 2021-02-06 08:47 | RAD REPORT ---
EXAM DESCRIPTION: NM - Vent Perfusion VQ Scan - 02/06/2021 8:31 am CLINICAL HISTORY: Shortness of breath COMPARISON: February 05, 2021 TECHNIQUE: 20.3 Mci [id number] was administered by inhalation. First breath, equilibrium, and washout images of the lungs obtained 7.1 millicuries Technetium-99 MAA was administered intravenously. Anterior, posterior, lateral and ob lique views of the lungs were taken. FINDINGS: Small, bilateral diminished radiotracer uptake involves the lungs which is relatively matc hed on ventilation and perfusion sequences. No large mismatch perfusion defects seen COPD is demonstrated IMPRESSION: The patient has a low to intermediate probability for pulmonary embolus
[2021-02-06] MEDS ORDERED: ACETAMINOPHEN 500 MG TAB ONE (08:58)
[2021-02-06] MEDS: ACETAMINOPHEN 500 MG TAB PO PRN ×2 (09:00→20:55)
[2021-02-06] MEDS ORDERED: PNEUMOCOCCAL VACCINE 0.5 ML IMVAC ONE (09:00)
[2021-02-06] MEDS ORDERED: ALBUTEROL 2.5 MG/3 ML NEB SOL NEB PRN (11:21)
[2021-02-06] MEDS: ALBUTEROL 2.5 MG/3 ML NEB SOL NEB SCH ×2 (14:17→19:50)
--- NOTE | 2021-02-06 14:46 | P.PN ---
Subjective Date of Service: 02/06/21 Chief Complaint: SOB Patient states she is feeling jittery. She denies increased shortness of breath. Physical Examination - Vital Signs Temperature: 97.5 F Blood Pressure: 151/77 Pulse: 74 Respirations: 20 Pulse Ox (%): 100 - Physical Exam General: Alert, In no apparent distress, Oriented x3 HEENT: PERRLA, Mucous membr. moist/pink, EOMI, Sclerae nonicteric Neck: Supple, JVD not distended Respiratory: Clear to auscultation bilaterally, Diminished (Bilateral) Cardiovascular: No edema, Regular rate/rhythm, Normal S1 S2 Gastrointestinal: Normal bowel sounds, Soft and benign, Non-distended, No tenderness Musculoskeletal: No swelling, Tenderness (Right arm) Integumentary: No rashes Neurological: Other (No focal motor deficit.) - Studies Laboratory Data (last 24 hrs) 02/05/21 16:36: PT 12.8 H, INR 1.11, APTT 32.4 02/05/21 16:36: WBC 10.00 D, Hgb 12.6, Hct 40.0 D, Plt Count 310 D 02/05/21 16:36: Sodium 138, Potassium 4.5, BUN 32 H, Creatinine 2.36 H, Glucose 93 Assessment And Plan - Current Problems (Diagnosis) (1) Acute respiratory failure with hypoxia Current Visit: Yes Status: Acute (2) Suspected pulmonary embolism Current Visit: Yes Status: Acute (3) Humeral fracture Current Visit: No Status: Acute (4) COPD exacerbation Current Visit: Yes Status: Acute (5) Rheumatoid arthritis Current Visit: No Status: Acute (6) Acute worsening of stage 3 chronic kidney disease Current Visit: Yes Status: Acute - Plan Continue IV Solu-Medrol and scheduled bronchodilators for COPD exacerbation. Case discussed with nephrology-Dr. Schwarz. He agrees with low-dose Eliquis for PE. Patient started on Eliquis 2.5 mg b.i.d. Hold Lasix given RADHA. No IV fluid. Encouraged oral intake. Monitor renal function. Continue other home medications
[2021-02-06] MEDS ORDERED: ALPRAZOLAM 0.25 MG TABLET PO SCH (14:49)
--- NOTE | 2021-02-06 14:51 | CON ---
The patient is seen in Emergency Room 8, getting ready to go to the floor. History Of Present Illness: She is alert, awake and able to talk in full sentences with me, but she is clearly short of breath as well and is needing to take breaks on occasion, but she has good insigh t. No suicidal or homicidal ideation. She states she has smoked in the past heavily, but has quit s everal years ago. Has a history of emphysema. States that she was told long time ago she had some k idney issues, but does not follow with a validation engineer. Her creatinine is in the mid 2 range. The pa susyleigh states that she has had no issues with diabetes. She denies any active issues with kidney or f ollow up with the kidney doctor recently. She states she follows up with a primary care physician. She states that she has significant shortness of breath, but does not require oxygen at home. She st ates that she has followed up with her primary care physicianfor the breathing issues as well. She h as a diagnosis of COPD she thinks. She has a history of scleroderma and Raynaud phenomena, rheumatoi d arthritis. She has a main complaint of shortness of breath. Right now, she says this is the reaso n why she came in. She has had some relief with albuterol inhalers for this. She does not have any sputum production, but does have some mild cough. She has some wheezing and orthopnea on my exam. S he has bilateral crackles and wheezing. The wheezing does improve with cough. She seems to not be v olume overloaded, however, her lower extremities do not show any edema. 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 She does not seem to have any crackles of the bases of her lungs. She has already got a dose of Solu-Medrol. Albuterol, ipratropium nebulizer treatments have been ordered. Albuterol p.r. n. has been ordered as well. Home Medications: Reviewed. Allergies: TO CODEINE AND SULFA. Past Medical History: Significant for hypertension, question chronic kidney disease, history of COPD , hypothyroidism, scleroderma, question the status of her hypertension treatment and COPD treatment. The patient does not follow up with any ski patrol or entertainment manager as per the patient or a nephro logist. Physical Examination: Vital signs: The patient's blood pressure is 137/77, her pulse is 70, respirations are 18, O2 sats a re close to mid 90% to 100%, but the patient is getting 2 L of nasal cannula. Lungs: Bilateral with significant rales and crackles and wheezing. The wheezing does improve with c ough. Diagnostic Studies: V/Q scan reviewed, shows question of intermediate probability for pulmonary embo lism. No large mismatched perfusion defects seen. COPD is demonstrated. No DVTs in lower extremiti es on ultrasonography. Her chest x-ray does not show any significant volume overload or any concern of congestive heart failure. Laboratory Data: Reviewed. Hemoglobin 12.8, hematocrit 40.3, platelet count 278. WBC 8.7, PTH of 1 14.7, calcium around 11. BUN, creatinine 32/2.36 yesterday, today 39/2.43. Sodium 138, potassium 4. 2, chloride 107. Bicarb is around 28, was 19 yesterday. Assessment And Plan: The patient with chronic kidney disease, likely with some acute kidney injury o n top. At this point, denies any use of NSAIDs. The patient's volume status seems to be close to eu volemic. There is some question of mismatch on V/Q scan, but there is no big mismatch and the probab ility is low to intermediate. Discussed with the hospitalist team as well. Okay to use Eliquis 2.5 mg p.o. b.i.d., which would be an adjustment given the patient's renal condition currently. Her latasha l failure has been stable. Her renal numbers have been stable compared to yesterday with a creatinin e of 2.36 last evening and 2.44 today. The patient does seem to have some component of chronic kidne y disease, which would need to be further evaluated once acute issues are resolved. I have discussed this with the patient. However, she looks euvolemic at this point. We will discontinue IV fluids. Recommend using treatment for chronic obstructive pulmonary disease. May need some steroids to calm the lungs down further. She has already got a dose of Solu-Medrol. May also need some antibiotics, especially if she develops cough with sputum. In summary, chronic obstructive pulmonary disease floresita atment. Discontinue IV fluids. Encourage p.o. intake as tolerated. Adequate water intake. Avoid N SAID. Avoid dye. The patient had a V/Q scan done with intermediate probability. If this needs to b e clarified further and CT scan is needed, as the patient's condition improves further, perhaps a CT scan with dye can be utilized with the understanding that there is some risk to the kidneys of worsen ing renal failure. At this point, Eliquis 2.5 mg p.o. b.i.d. can be continued. Appreciate your cons ultation. /JESUS Voice ID: [id number] Report ID: [id number]
[2021-02-06] MEDS ORDERED: ALPRAZOLAM 0.25 MG TABLET PO PRN (17:25)
--- NOTE | 2021-02-06 19:17 | EKG ---
Test Date: 2021-02-05 Test Time: 17:16:33 Pitch Gatherer: MARCELA MEASUREMENT RESULTS: Intervals: Rate: 68 WI: 210 QRSD: 94 QT: 438 QTc: 465 [place]: P: 72 WI: 210 QRS: -39 T: 69 INTERPRETIVE STATEMENTS: Sinus rhythm with 1st degree AV block Left axis deviation Voltage criteria for left ventricular hypertrophy Abnormal ECG Compared to ECG 01/24/2021 06:52:12 No significant changes Electronically Signed On 02-06-21 19:13:49 CDT by Guido Farrell
[2021-02-06] MEDS: APIXABAN 2.5 MG TABLET PO SCH (20:56)
[2021-02-06] MEDS: AMITRIPTYLINE 50 MG TAB PO SCH (20:57)
[2021-02-07] MEDS: METHYLPREDNISOLONE 40 MG INJ IV SCH ×3 (00:19→17:10)
[2021-02-07] MEDS: ACETAMINOPHEN 500 MG TAB PO PRN ×4 (01:08→17:10)
[2021-02-07] MEDS: IPRATROPIUM BROM 0.5MG/2.5ML NEB SCH ×4 (01:25→20:05)
[2021-02-07] MEDS: ALBUTEROL 2.5 MG/3 ML NEB SOL NEB SCH ×4 (01:25→20:05)
[2021-02-07 05:39] LABS: Absolute Lymphocytes (CBC) 0.8 K/uL (0.7-4.9); Basophils % 0.2 % (0-1.3); Hematocrit 34.8 % (36.0-45.0); Lymphocytes % 5.9 % (15.3-44.8); MPV 8.2 fL (7.6-11.3)
[2021-02-07 05:50] LABS: Potassium 4.4 mmol/L (3.5-5.1)
[2021-02-07] MEDS ORDERED: LEVOTHYROXINE SOD 0.025 MG TAB PO SCH (06:30)
[2021-02-07] MEDS ORDERED: SULFASALAZINE 500 MG E.C. TAB PO SCH ×3 (09:00→21:00)
[2021-02-07] MEDS: APIXABAN 2.5 MG TABLET PO SCH ×2 (09:00→20:24)
[2021-02-07] MEDS: AMITRIPTYLINE 50 MG TAB PO SCH (09:00)
--- NOTE | 2021-02-07 09:01 | ECHO ---
HEIGHT: 5 ft 6 in WEIGHT: 149 lb 9.6 oz DATE OF STUDY: 02/06/[address]: Galen Bustamante 2-DIMENSIONAL: YES M.MODE: YES DOPPLER: YES COLOR FLOW: YES TDS: NO PORTABLE: NO DEFINITY: NO BUBBLE STUDY: NO DIAGNOSIS: SHORTNESS OF BREATH CARDIAC HISTORY: CATHERIZATION: SURGERY: PROSTHETIC VALVE: PACEMAKER: MEASUREMENTS (cm) DIASTOLIC (NORMALS) SYSTOLIC (NORMALS) IVSd 1.7 (0.6-1.2) LA Diam 3.4 (1.9-4.0) LVEF 73% LVIDd 3.3 (3.5-5.7) LVIDs 2.0 (2.0-3.5) %FS 41% LVPWd 1.4 (0.6-1.2) Ao Diam 2.7 (2.0-3.7) 2 DIMENSIONAL ASSESSMENT: RIGHT ATRIUM: NORMAL LEFT ATRIUM: NORMAL RIGHT VENTRICLE: NORMAL LEFT VENTRICLE: LEFT VENTRICULAR HYPERTROPHY TRICUSPID VALVE: NORMAL MITRAL VALVE: NORMAL PULMONIC VALVE: NORMAL AORTIC VALVE: NORMAL PERICARDIAL EFFUSION: NONE AORTIC ROOT: NORMAL LEFT VENTRICULAR WALL MOTION: DIASTOLIC DYSFUNCTION. DOPPLER/COLOR FLOW: DIASTOLIC DYSFUNCTION. COMMENTS: SEVERE DIASTOLIC DYSFUNCTION, GRADE III. LEFT VENTRICULAR HYPERTROPHY. NORMAL LEFT VENTRICULAR EJECTION FRACTION. NO EFFUSION. TECHNOLOGIST: Radha BONILLA
--- NOTE | 2021-02-07 09:46 | P.PN ---
Date of Service: 02/07/21 Vital Signs Temp Pulse Resp BP Pulse Ox 97.6 F 68 16 123/56 L 98 02/07/21 07:40 02/07/21 07:40 02/07/21 07:40 02/07/21 07:40 02/07/21 07:40 Medications Acetaminophen (Acetaminophen 500 Mg Tab) 500 mg PO Q4HP PRN PRN Reason: Pain scale 2-4 (Mild) Last Admin: 02/07/21 05:32 Dose: 500 mg Documented by: Albuterol Sulfate (Albuterol 2.5 Mg/3 Ml Neb Jennifer) 2.5 mg NEB Q4HP PRN PRN Reason: SHORTNESS OF BREATH Albuterol Sulfate (Albuterol 2.5 Mg/3 Ml Neb Jennifer) 2.5 mg NEB [id number] [facility] Last Admin: 02/07/21 08:00 Dose: Not Given Documented by: Alprazolam (Alprazolam 0.25 Mg Tablet) 0.25 mg PO DAILY PRN PRN Reason: ANXIETY Amitriptyline HCl (Amitriptyline 50 Mg Tab) 50 mg PO BID [facility] Last Admin: 02/06/21 20:57 Dose: Not Given Documented by: Apixaban (Apixaban 2.5 Mg Tablet) 2.5 mg PO BID [facility] Last Admin: 02/06/21 20:56 Dose: 2.5 mg Documented by: Ipratropium [place] (Ipratropium Brom 0.5mg/2.5ml) 0.5 mg NEB [id number] [facility] Last Admin: 02/07/21 07:45 Dose: 0.5 mg Documented by: Levothyroxine Sodium (Levothyroxine Sod 0.025 Mg Tab) 0.025 mg PO DAILYAC [facility] Last Admin: 02/07/21 05:32 Dose: 0.025 mg Documented by: Methylprednisolone Sodium Succinate (Methylprednisolone 40 Mg Inj) 40 mg IV Q8HR [facility] Last Admin: 02/07/21 00:19 Dose: 40 mg Documented by: Ondansetron HCl (Ondansetron 4 Mg/2 Ml Vial) 4 mg IV Q6HP PRN PRN Reason: NAUSEA / VOMITING Sodium Chloride (Flush Normal Saline 10 Ml) 10 ml IV BID [facility] Last Admin: 02/06/21 20:57 Dose: 10 ml Documented by: Sulfasalazine (Sulfasalazine 500 Mg E.C. Tab) 500 mg PO DAILY [facility] Microbiology Results 02/05/21 16:24 Blood - Blood Aerobic Blood Culture - Preliminary No growth in 24 hours. 02/05/21 16:24 Blood - Blood Anaerobic Blood Culture - Preliminary No growth in 24 hours. 02/05/21 16:36 Blood - Blood Aerobic Blood Culture - Preliminary No growth in 24 hours. 02/05/21 16:36 Blood - Blood Anaerobic Blood Culture - Preliminary No growth in 24 hours. Assessment/ Plan: Nephrology Feeling better today. CPS stable without CP or SOB. No acute events overnight Vitals, medications, blood work and imaging reviewed in the chart. NAD. NCAT. MMM. Neck supple. CTA. RRR. Soft Abd. No C/C/E. No rash. AAO. Normal speech. SEVERE DIASTOLIC DYSFUNCTION, GRADE III. LEFT VENTRICULAR HYPERTROPHY. NORMAL LEFT VENTRICULAR EJECTION FRACTION. NO EFFUSION. RADHA vs CKD progression CKD IV -No NSAIDs Acidosis -Oral bicarb as needed HTN with CKD -Monitor BP Diastolic CHF -Low sodium diet Hyperglycemia -Wean steroids a tolerated Anemia in chronic illness -Monitor H&H Secondary HyperPTH Hypercalcemia -Start Vitamin D3 Acute hypoxic respiratory failure Suspected PE -Continue Eliquis Case reviewed with Dr. Cabrera
[2021-02-07] MEDS ORDERED: SULFASALAZINE 500 MG E.C. TAB PO ONE (12:18)
--- NOTE | 2021-02-07 15:12 | RAD REPORT ---
EXAM DESCRIPTION: RAD - Elbow Left 3 View - 02/07/2021 2:26 pm CLINICAL HISTORY: Left elbow pain FINDINGS: No fracture or dislocation is seen.Bones are osteoporotic. No additional bone or joint abnormality seen
--- NOTE | 2021-02-07 15:13 | RAD REPORT ---
EXAM DESCRIPTION: RAD - Humerus Left - 02/07/2021 2:26 pm CLINICAL HISTORY: Left arm pain FINDINGS: No fracture is seen. Bones are osteoporotic. No bony lesions seen
--- NOTE | 2021-02-07 15:23 | RAD REPORT ---
EXAM DESCRIPTION: RAD - Shoulder Right 2 View - 02/07/2021 2:26 pm CLINICAL HISTORY: Right shoulder pain FINDINGS: There has been minimal worsening in the displacement of the right humeral neck fracture wh ich is [id number]. No dislocation is seen
--- NOTE | 2021-02-07 18:20 | P.DS ---
Admission Date: 02/05/21 Discharge Date: 02/07/21 Disposition: ROUTINE DISCHARGE Discharge Condition: FAIR Reason for Admission: SOB - Problems (1) Acute respiratory failure with hypoxia Current Visit: Yes Status: Acute (2) Suspected pulmonary embolism Current Visit: Yes Status: Acute (3) Humeral fracture Current Visit: No Status: Acute (4) COPD exacerbation Current Visit: Yes Status: Acute (5) Rheumatoid arthritis Current Visit: No Status: Acute (6) Acute worsening of stage 3 chronic kidney disease Current Visit: Yes Status: Acute Brief History of Present Illness: 70 yo F with RA, Raynaud's, scleoderma, hypothyroidism, and COPD presented to the emergency department with a complaint of SOB that has been worsening over 4 weeks. Patient reported worsening symptoms with anxiety. She was sent to ED by PCP for rule out of PE. Cold not do CTPE due to impaired kidney function. CT w/o contrast showed extensive fribro emphysematous lung pattern with no focal consolidation or mass. Quit smoking 10 years ago. BUN 32, Cr 2.36, GFR 20. Ca2+ 12.1. Trop 0.08, BNP 6151. EKG wnl. Ddimer 4178. Received lasix, zoponex, ativan, and solumedrol in the ED. Paient admitted for further evaluation and treatment. Hospital Course: V/Q scan performed showed low to moderate probability for pulmonary embolus. D- dimer elevated. Patient started on renally dosed Eliquis given her impaired renal function. Patient also treated for COPD exacerbation with IV steroid, scheduled bronchodilators. No pneumonia and no indication for antibiotic. She was initially requiring oxygen but was eventually weaned off oxygen to room when which she tolerated liquid oxygen saturation. Patient is ambulatory without shortness of breath. CT chest shows emphysema. Patient diagnosed with COPD exacerbation. She is discharged with Advair, nebs and short course prednisone therapy. She may resume her Xanax for anxiety. Repeat x-ray of the right humerus shows mild worsening displacement of the humeral shaft fracture. Patient advised to wear her sling all the time. Vital Signs/Physical Exam: Temp Pulse Resp BP Pulse Ox 98.6 F 67 16 122/56 L 99 02/07/21 12:00 02/07/21 12:00 02/07/21 12:00 02/07/21 12:00 02/07/21 12:00 General: Alert, In no apparent distress, Oriented x3 HEENT: Mucous membr. moist/pink Neck: JVD not distended Respiratory: Clear to auscultation bilaterally, Normal air movement Cardiovascular: No edema, Regular rate/rhythm, Normal S1 S2 Gastrointestinal: Normal bowel sounds, Soft and benign, Non-distended Musculoskeletal: No contractures Integumentary: No rashes Neurological: Normal strength at 5/5 x4 extr Laboratory Data at Discharge: WBC 13.90 K/uL (4.3-10.9) H D 02/07/21 05:15 Hgb 11.1 g/dL (12.0-15.0) L 02/07/21 05:15 Hct 34.8 % (36.0-45.0) L 02/07/21 05:15 Plt Count 234 K/uL (152-406) 02/07/21 05:15 PT 12.8 SECONDS (9.5-12.5) H 02/05/21 16:36 INR 1.11 02/05/21 16:36 APTT 32.4 SECONDS (24.3-36.9) 02/05/21 16:36 Sodium 138 mmol/L (136-145) 02/07/21 05:15 Potassium 4.4 mmol/L (3.5-5.1) 02/07/21 05:15 BUN 47 mg/dL (7-18) H 02/07/21 05:15 Creatinine 2.30 mg/dL (0.55-1.3) H 02/07/21 05:15 Glucose 125 mg/dL (74-106) H 02/07/21 05:15 Phosphorus 4.5 mg/dL (2.5-4.9) 02/06/21 05:22 Magnesium 2.0 mg/dL (1.8-2.4) 02/06/21 05:22 Total Bilirubin 0.7 mg/dL (0.2-1.0) 02/06/21 05:22 AST 16 U/L (15-37) 02/06/21 05:22 ALT 17 U/L (12-78) 02/06/21 05:22 Alkaline Phosphatase 103 U/L (45-117) 02/06/21 05:22 Troponin I 0.09 ng/mL (0.0-0.045) H 02/06/21 14:30 Triglycerides 136 mg/dL (<150) 02/06/21 05:22 Cholesterol 187 mg/dL (<200) 02/06/21 05:22 HDL Cholesterol 47 mg/dL (40-60) 02/06/21 05:22 Cholesterol/HDL Ratio 3.98 02/06/21 05:22 Home Medications: Levothyroxine Sodium [Levothyroxine] 25 mcg PO DAILY 01/25/21 sulfaSALAzine [Sulfasalazine] 500 mg PO DAILY 01/25/21 traMADol HCL [Ultram*] 50 mg PO Q6H PRN #20 tab 01/28/21 Albuterol Neb [Proventil 0.083% Neb Soln] 2.5 mg NEB [id number] #120 amp 02/07/21 Amitriptyline [Elavil] 25 mg PO BEDTIME #30 tab 02/07/21 Apixaban [Eliquis *] 2.5 mg PO BID #60 tablet 02/07/21 Cholecalciferol (Vitamin D3) [Vitamin D 5,000 IU Cap*] 5,000 unit PO DAILY #30 cap 02/07/21 Fluticasone/Salmeterol [Advair 250-50 Diskus] 1 each IH BID #60 blst.w.dev 02/07/21 Ipratropium Neb [Atrovent*] 0.5 mg NEB [id number] #120 amp 02/07/21 Nebulizer [Truneb Nebulizer] 1 each Q6H #1 each 02/07/21 predniSONE [Deltasone] 40 mg PO DAILY #10 tab 02/07/21 New Medications: Ipratropium Neb [Atrovent*] 0.5 mg NEB [id number] #120 amp Albuterol Neb [Proventil 0.083% Neb Soln] 2.5 mg NEB [id number] #120 amp Fluticasone/Salmeterol [Advair 250-50 Diskus] 1 each IH BID #60 blst.w.dev Amitriptyline [Elavil] 25 mg PO BEDTIME #30 tab Apixaban [Eliquis *] 2.5 mg PO BID #60 tablet predniSONE [Deltasone] 40 mg PO DAILY #10 tab Nebulizer [Truneb Nebulizer] 1 each MC Q6H #1 each Cholecalciferol (Vitamin D3) [Vitamin D 5,000 IU Cap*] 5,000 unit PO DAILY #30 cap Physician Discharge Instructions: Keep right upper extremity in a sling all the time. Diet: AHA Activity: Ad kilo Followup: Hernesto Echeverria MD [Primary Care Provider] - 1-2 Weeks Time spent managing pt's care (in minutes): 38
[2021-02-07 20:08] VITALS: BP 136/64; TEMP 97.8
[2021-02-08 05:02] VITALS: O2SAT 92
[2021-02-08] MEDS ORDERED: VITAMIN D 5,000 UNIT CAP PO SCH (09:00)
== END 2021-02-07 20:59 | disposition home health service (06) | DRG 175 ==
LOC: ER 15:27 → ERHOLD 20:02 → 2ND 02-06 11:03
PROVIDERS: ADMIT Internal Medicine; ATTEND Internal Medicine
PROC: 5A09357 Assistance with Respiratory Ventilation, Less than 24 Consecutive Hours, Continuous Positive Airway Pressure (ICD-10-PCS; principal; 2021-02-05)
DX: I26.99 Other pulmonary embolism without acute cor pulmonale (principal); J96.01 Acute respiratory failure with hypoxia; J44.1 Chronic obstructive pulmonary disease with (acute) exacerbation; N17.9 Acute kidney failure, unspecified; E87.2 Acidosis; I50.32 Chronic diastolic (congestive) heart failure; I13.0 Hypertensive heart and chronic kidney disease with heart failure and stage 1 through stage 4 chronic kidney disease, or unspecified chronic kidney disease; N18.30 Chronic kidney disease, stage 3 unspecified; M06.9 Rheumatoid arthritis, unspecified; E03.9 Hypothyroidism, unspecified; F41.9 Anxiety disorder, unspecified; M34.9 Systemic sclerosis, unspecified; E21.1 Secondary hyperparathyroidism, not elsewhere classified; D63.8 Anemia in other chronic diseases classified elsewhere; I73.00 Raynaud's syndrome without gangrene; S42.301D Unspecified fracture of shaft of humerus, right arm, subsequent encounter for fracture with routine healing; R73.9 Hyperglycemia, unspecified; Z88.5 Allergy status to narcotic agent; Z90.710 Acquired absence of both cervix and uterus; Z79.899 Other long term (current) drug therapy; Z87.891 Personal history of nicotine dependence; Z88.1 Allergy status to other antibiotic agents; Z79.890 Hormone replacement therapy; Z79.01 Long term (current) use of anticoagulants; Z79.52 Long term (current) use of systemic steroids; Z20.822 Contact with and (suspected) exposure to COVID-19
CPT/HCPCS: 36415; 71045; 71250; 78582; 80048; 80053; 80061; 82565; 82805; 83735; 83880; 83970; 84100; 84439; 84443; 84484; 85025; 85379; 85610; 85730; 87040; 93005; 93306; 93971; 94002; 94003; 94640; 94760; 96374; 96375; 99291; 99292; A9540; A9558; J1644; J1940; J2920; J2930; U0003

== ENCOUNTER 2021-04-25 11:36 | Emergency (ER) | payer OTHER ==
[2021-04-25] MEDS ORDERED: MORPHINE 4 MG/ML SYR ONE (12:47)
[2021-04-25] MEDS ORDERED: ONDANSETRON 4 MG (ODT) TAB ONE (12:47)
[2021-04-25 12:49] LABS: Hematocrit 34.8 % (36.0-45.0); RBC Red Blood Cell Count 3.59 M/uL (3.86-4.86)
[2021-04-25 12:50] LABS: Absolute Lymphocytes (CBC) 0.8 K/uL (0.7-4.9); Basophils % 0.3 % (0-1.3); Lymphocytes % 7.3 % (15.3-44.8); MPV 7.3 fL (7.6-11.3)
[2021-04-25] MEDS ORDERED: DIPHENHYDRAMINE 50 MG/ML VIAL ONE (13:17)
[2021-04-25 13:18] LABS: Albumin 3.6 g/dL (3.4-5.0); Bilirubin Direct 0.3 mg/dL (0-0.2); Bilirubin Total 0.7 mg/dL (0.2-1.0); Potassium 4.6 mmol/L (3.5-5.1); Protein, Total 6.6 g/dL (6.4-8.2)
[2021-04-25] MEDS ORDERED: FENTANYL CITR 100 MCG/2 ML ONE (13:52)
--- NOTE | 2021-04-25 14:02 | RAD REPORT ---
EXAM DESCRIPTION: CT - Abdomen Pelvis Wo Contrast - 04/25/2021 1:47 pm CLINICAL HISTORY: Abdominal pain. abdominal pain COMPARISON: No comparisons TECHNIQUE: CT imaging of the abdomen and pelvis was performed without contrast. Solid organ, bowel a nd vascular assessment is limited due to lack of IV and oral contrast. All CT scans are performed using dose optimization technique as appropriate and may include automated exposure control or mA/KV adjustment according to patient size. FINDINGS: Prominent emphysematous changes present in both lower lobes.Small to moderate hiatal herni a. Noncontrast assessment of the liver demonstrates no focal mass or biliary dilatation. The spleen, hogan creas, adrenal glands are normal.Atrophy left kidney is present. Moderate right kidney hydronephrosis is present caused by 10 mm calculus at the right UVJ level. No bowel obstruction, free air, free fluid or abscess. The appendix is normal. The osseous structures are within normal limits. IMPRESSION: Moderate hydronephrosis and hydroureter on the right is seen caused by oblong 8 mm stone at the right UVJ. A limited non-contrast examination was performed as detailed.
[2021-04-25] MEDS ORDERED: NA CHLORIDE 0.9% 250 ML ONE (15:38)
[2021-04-25] MEDS ORDERED: TAMSULOSIN 0.4 MG SR CAP ONE (15:38)
[2021-04-25] MEDS ORDERED: ONDANSETRON 4 MG/2 ML VIAL ONE (15:45)
[2021-04-25 15:46] LABS: Urine Blood 2+ (Negative); Urine Glucose Negative (Negative); Urine Protein Negative (Negative)
[2021-04-25] MEDS ORDERED: CEFTRIAXONE 1000 MG/VIAL ONE ×2 (16:34→18:09)
--- NOTE | 2021-04-25 16:53 | EDPHYS ---
Physician Documentation [facility] Name: Tri Torrez Age: 70 yrs Sex: Female : 1950 Arrival Date: 04/25/2021 Time: 11:39 Bed 24 Private MD: ED Physician Dexter Felix HPI: 04/25 12:14 This 70 yrs old Female presents to ER via Wheelchair with complaints of [facility] Abdominal Pain. 12:14 The patient presents with abdominal pain. Onset: The symptoms/episode began/occurred jmm gradually, 3 month(s) ago. The symptoms do not radiate. Associated signs and symptoms: Pertinent negatives: diarrhea, vomiting. The symptoms are described as achy, sharp. Modifying factors: The symptoms are alleviated by nothing, the symptoms are aggravated by nothing. The patient has not experienced similar symptoms in the past. This is a 70-year-old female with history of COPD and atrophy of the left kidney that presents to the ED with complaints of right sided abdominal pain which has been chronic over the past 3 months but intensified severely this morning. Patient denies vomiting, fever, diarrhea.. Historical: - Allergies: 11:48 Sulfa (Sulfonamide Antibiotics); tw2 11:48 Codeine; nausea; tw2 - Home Meds: 11:48 VItamin D \\T\\ E [Active]; sulfasalazine 500 mg Oral tab 2 tab after meals [Active]; tw2 omeprazole 40 mg oral cpDR 1 cap once daily [Active]; levothyroxine 25 mcg tab 1.5 tabs once daily [Active]; Eliquis 2.5 mg oral tab 1 tab 2 times per day [Active]; orphenadrine citrate 100 mg oral TbER 1 tab 2 times per day [Active]; amitriptyline 25 mg oral tab 1 tab once daily [Active]; Symbicort 160-4.5 mcg/actuation inhalation HFAA 2 puffs 2 times per day [Active]; albuterol sulfate 90 mcg/actuation Inhl aebs 2 puffs every 4-6 hours [Active]; - PMHx: 11:48 born with 1 kidney; COPD; Hypothyroidism; Osteoporosis; Raynaud's Disease; Rheumatoid tw2 Arthritis; Scleroderma; - PSHx: 11:48 hysterectomy; tw2 - Immunization history:: Client reports receiving the 2nd dose of the Covid vaccine, Flu vaccine is up to date. - Social history:: Smoking status: Patient denies any tobacco usage or history of. ROS: 12:14 Constitutional: Negative for fever, chills, and weight loss, Cardiovascular: Negative jmm for chest pain, palpitations, and edema, Respiratory: Negative for shortness of breath, cough, wheezing, and pleuritic chest pain. 12:14 Abdomen/GI: Positive for abdominal pain. 12:14 All other systems are negative. Exam: 12:14 Constitutional: This is a well developed, well nourished patient who is awake, alert, jmm and in no acute distress. Head/Face: atraumatic. Eyes: EOMI, no conjunctival erythema appreciated ENT: Moist Mucus Membranes Neck: Trachea midline, Supple Chest/axilla: Normal chest wall appearance and motion. Cardiovascular: Regular rate and rhythm. No edema appreciated Respiratory: Normal respirations, no respiratory distress appreciated 12:14 Back: Normal ROM Skin: General appearance color normal MS/ Extremity: Moves all extremities, no obvious deformities appreciated, no edema noted to the lower extremities Neuro: Awake and alert, normal gait Psych: Behavior is normal, Mood is normal, Patient is cooperative and pleasant 12:14 Abdomen/GI: Inspection: abdomen appears normal, Bowel sounds: normal, Palpation: soft, moderate abdominal tenderness, in all quadrants. Vital Signs: 11:43 BP 141 / 70; Pulse 73; Resp 17; Temp 97.7(TE); Pulse Ox 97% on R/A; Weight 62.6 kg (R); tw2 Height 5 ft. 4 in. (162.56 cm); Pain 10/10; 13:19 BP 159 / 92; Pulse 81; Resp 19; Pulse Ox 98% ; oh 17:33 BP 119 / 96; Pulse 90; Resp 20; Temp 98.7; Pulse Ox 96% on R/A; oh 11:43 Body Mass Index 23.69 (62.60 kg, 162.56 cm) tw2 MDM: 12:14 Patient medically screened. [facility] 16:30 Data reviewed: vital signs, nurses notes. [facility] 16:51 Counseling: I had a detailed discussion with the patient and/or guardian regarding: the [facility] historical points, exam findings, and any diagnostic results supporting the discharge/admit diagnosis, lab results, radiology results, the need to transfer to another facility. ED course: No urology available. Due to UTI, intractable pain, and having only one functional kidney, will transfer for further evaluation. . 17:38 ED course: i discussed the patient Dr. Fan. [facility] 17:51 ED course: I discussed the case with Dr. Tang from [facility] in the [facility]. kdr He agreed to consult on the case. The hospitalist had already accepted the case and transfer. 04/25 12:19 Order name: Basic Metabolic Panel [facility] 04/25 12:19 Order name: CBC with Diff; Complete Time: 12:55 [facility] 04/25 12:19 Order name: Hepatic Function; Complete Time: 13:19 [facility] 04/25 12:19 Order name: Lipase; Complete Time: 13:19 [facility] 04/25 12:19 Order name: Basic Metabolic Panel; Complete Time: 13:19 [facility] 04/25 15:46 Order name: Urine Dipstick-Ancillary; Complete Time: 16:05 [facility] 04/25 13:20 Order name: CT Abd/Pelvis - Without Contrast; Complete Time: 14:10 [facility] 04/25 16:05 Order name: Abdomen 1 View (KUB) XRAY; Complete Time: 17:14 [facility] 04/25 16:07 Order name: Urine Culture [facility] 04/25 16:07 Order name: Urine Culture [facility] 04/25 16:24 Order name: COVID-19 : Document "Date of Symptom Onset" if Symptomatic. 04/25 19:13 Order name: SARS-COV-2 RT PCR; Complete Time: 11:53 [facility] 04/25 12:19 Order name: IV Saline Lock; Complete Time: 12:40 [facility] 04/25 12:19 Order name: Labs collected and sent; Complete Time: 12:40 [facility] 04/25 12:19 Order name: Urine Dipstick-Ancillary (obtain specimen); Complete Time: 16:41 [facility] 04/25 16:03 Order name: Devi; Complete Time: 16:14 vg1 Administered Medications: 12:28 Drug: morphine 4 mg Route: IM; Site: left deltoid; oh 17:38 Follow up: Response: No adverse reaction oh 12:28 Drug: Zofran (Ondansetron) 4 mg Route: PO; oh 12:59 Drug: diphenhydrAMINE 12.5 mg Route: IVP; Site: left antecubital; oh 17:38 Follow up: Response: No adverse reaction oh 13:31 Drug: fentaNYL (PF) 50 mcg Route: IVP; Site: left antecubital; oh 17:38 Follow up: Response: No adverse reaction oh 15:20 Drug: Flomax (tamsulosin) 0.4 mg Route: PO; oh 17:38 Follow up: Response: No adverse reaction oh 15:23 Drug: NS 0.9% 250 ml Route: IV; Rate: bolus; Site: left antecubital; oh 15:24 Drug: Zofran (Ondansetron) 4 mg Route: IVP; Site: left antecubital; oh 17:38 Follow up: Response: No adverse reaction oh 16:18 Drug: Rocephin (cefTRIAXone) 1 grams Route: IV; Rate: calculated rate; Site: left oh antecubital; 17:49 Drug: Rocephin (cefTRIAXone) 1 grams Route: IV; Rate: calculated rate; Site: left oh antecubital; Disposition: 17:51 Co-signature as Attending Physician, Dexter Felix MD I agree with the assessment and kdr plan of care. Disposition Summary: 04/25/21 16:53 Transfer Ordered Transfer Location: [facility] Reason: Higher level of care jmm Condition: Stable jmm Problem: new jmm Symptoms: are unchanged jmm Accepting Physician: Dr. Fan(04/25/21 20:27) cw2 Diagnosis - Calculus of ureter jmm - Urinary Tract Infection jmm Forms: - Medication Reconciliation Form jmm - SBAR form jmm Signatures: Dispatcher [employer] EDMS Dexter Felix MD MD kdr Mickail, Joel, PA PA jmm Yana Estevez RN RN tw2 Hermelinda Singh, RN RN vg1 Misael Michaels, RN RN cw2 Linnea Li RN RN oh Corrections: (The following items were deleted from the chart) 11:50 11:48 Allergies: Sulfa; tw2 tw2 13:22 12:20 Abdomen Pelvis W Con+CT.RAD.BRZ ordered. EDMS EDMS 17:39 16:53 Urology jmm jmm 18:16 16:25 CORONAVIRUS ordered. EDMS EDMS 20:27 17:39 Dr. Meng trejo cw2
--- NOTE | 2021-04-25 16:53 | ER ---
Nurse's Notes [facility] Name: Tri Torrez Age: 70 yrs Sex: Female : 1950 Arrival Date: 04/25/2021 Time: 11:39 Bed 24 Private MD: Diagnosis: Calculus of ureter;Urinary Tract Infection Presentation: 04/25 11:43 Chief complaint: Patient states: i am having pain. its in my right side of my stomach tw2 and it has been going on for a long time. the pain just got worse and today the pain was bad on her side. Chief complaint: Patient states: i fell January 23. Spouse and/or significant other states: she broke her right upper arm. Chief complaint: Spouse and/or significant other states: she has no tolerance for pain. the past couple of months since she broke her arm she has been totally sedentary. she lays in bed or sits in recliner. she eats or goes to the bathroom. and several occasions over the past couple of months where maybe she gets trapped gas and she appears to have what is severe pain. i suspect this is what is going on today but her reaction is so bad that i just dont know. i called Dr. Echeverria's office and i listened to the recording. Coronavirus screen: At this time, the client does not indicate any symptoms associated with coronavirus-19. Ebola Screen: Patient denies travel to an Ebola-affected area in the 21 days before illness onset. Initial Sepsis Screen: Does the patient meet any 2 criteria? No. Patient's initial sepsis screen is negative. Does the patient have a suspected source of infection? No. Patient's initial sepsis screen is negative. Risk Assessment: Do you want to hurt yourself or someone else? Patient reports no desire to harm self or others. Onset of symptoms was April 25, 2021. 11:43 Method Of Arrival: Wheelchair tw2 11:43 Acuity: IVETH 3 tw2 20:24 Note ATTEMPT TO CALL REPORT MULTIPLE TIMES BY DAY SHIFT AND DUE DILIGENCE COORDINATOR. NO ANSWER ON cw2 DUE DILIGENCE COORDINATOR FOR REPORT. EMS BEDSIDE TO TAKE PT TO [facility]. PT AWAKE ALERT AOX4 SPEAKING IN FULL SENTENCES. PT STABLE FOR TRANSPORT. Triage Assessment: 11:47 General: Appears in no apparent distress. uncomfortable, Behavior is anxious. Pain: tw2 Complains of pain in abdomen. GI: Reports lower abdominal pain, upper abdominal pain, LBM today. Historical: - Allergies: 11:48 Sulfa (Sulfonamide Antibiotics); tw2 11:48 Codeine; nausea; tw2 - Home Meds: 11:48 VItamin D \\T\\ E [Active]; sulfasalazine 500 mg Oral tab 2 tab after meals [Active]; tw2 omeprazole 40 mg oral cpDR 1 cap once daily [Active]; levothyroxine 25 mcg tab 1.5 tabs once daily [Active]; Eliquis 2.5 mg oral tab 1 tab 2 times per day [Active]; orphenadrine citrate 100 mg oral TbER 1 tab 2 times per day [Active]; amitriptyline 25 mg oral tab 1 tab once daily [Active]; Symbicort 160-4.5 mcg/actuation inhalation HFAA 2 puffs 2 times per day [Active]; albuterol sulfate 90 mcg/actuation Inhl aebs 2 puffs every 4-6 hours [Active]; - PMHx: 11:48 born with 1 kidney; COPD; Hypothyroidism; Osteoporosis; Raynaud's Disease; Rheumatoid tw2 Arthritis; Scleroderma; - PSHx: 11:48 hysterectomy; tw2 - Immunization history:: Client reports receiving the 2nd dose of the Covid vaccine, Flu vaccine is up to date. - Social history:: Smoking status: Patient denies any tobacco usage or history of. Screenin:46 Abuse screen: Denies threats or abuse. Nutritional screening: No deficits noted. oh Tuberculosis screening: No symptoms or risk factors identified. Fall Risk Gait-. Assessment: 12:46 GI: Bowel sounds present X 4 quads. Abdomen is tender to palpation. oh 12:47 General: Appears distressed, Behavior is agitated, Reports abdominal pain, nausea and oh right shoulder pain. Pain: Complains of pain in abdomen. Neuro: No deficits noted. Cardiovascular: Rhythm is sinus bradycardia. Respiratory: No deficits noted. : No deficits noted. Musculoskeletal: Reports pain in right shoulder. 13:32 Reassessment: fentanyl 25 mcg given will assess upon return. pt off the floor to CT. oh 18:35 Reassessment: attempt to call report, per [facility] room is not clean, nurse not ready oh to get report. Vital Signs: 11:43 BP 141 / 70; Pulse 73; Resp 17; Temp 97.7(TE); Pulse Ox 97% on R/A; Weight 62.6 kg (R); tw2 Height 5 ft. 4 in. (162.56 cm); Pain 10/10; 13:19 BP 159 / 92; Pulse 81; Resp 19; Pulse Ox 98% ; oh 17:33 BP 119 / 96; Pulse 90; Resp 20; Temp 98.7; Pulse Ox 96% on R/A; oh 11:43 Body Mass Index 23.69 (62.60 kg, 162.56 cm) tw2 ED Course: 11:39 Patient arrived in ED. jm9 11:47 Triage completed. tw2 11:47 Arm band placed on. tw2 11:52 Linnea Li, TIFFANIE is Primary Nurse. oh 11:52 Jeff Nair PA is PHCP. m 11:52 Dexter Felix MD is Attending Physician. jmm 12:40 Inserted saline lock: 22 gauge in left antecubital area, using aseptic technique. Blood ss collected. Insertoin VIA ultrasound guided. 12:46 Bed in low position. Call light in reach. Side rails up X2. oh 13:47 CT Abd/Pelvis - Without Contrast In Process Unspecified. EDMS 16:14 Devi cath inserted, using sterile technique, 16 Fr., by ms, balloon inflated, to vg1 gravity drainage, urine specimen collected. returned cloudy urine. Patient tolerated well. 300 mL output. 16:19 Urine Culture Sent. oh 16:19 Urine Culture Sent. oh 16:34 initiated transfer to [facility]. bd 16:37 COVID-19 : Document "Date of Symptom Onset" if Symptomatic. Sent. kh1 16:52 Abdomen 1 View (KUB) XRAY In Process Unspecified. EDMS 17:25 initiated transfer to [facility]. bd 18:[address] [facility] cancelled. bd 18:25 pt accepted in transfer to [facility] by Dr Fan, admin approval given by TOMMIE Blackwell. 19:10 Basic Metabolic Panel Sent. cw2 Administered Medications: 12:28 Drug: morphine 4 mg Route: IM; Site: left deltoid; oh 17:38 Follow up: Response: No adverse reaction oh 12:28 Drug: Zofran (Ondansetron) 4 mg Route: PO; oh 12:59 Drug: diphenhydrAMINE 12.5 mg Route: IVP; Site: left antecubital; oh 17:38 Follow up: Response: No adverse reaction oh 13:31 Drug: fentaNYL (PF) 50 mcg Route: IVP; Site: left antecubital; oh 17:38 Follow up: Response: No adverse reaction oh 15:20 Drug: Flomax (tamsulosin) 0.4 mg Route: PO; oh 17:38 Follow up: Response: No adverse reaction oh 15:23 Drug: NS 0.9% 250 ml Route: IV; Rate: bolus; Site: left antecubital; oh 15:24 Drug: Zofran (Ondansetron) 4 mg Route: IVP; Site: left antecubital; oh 17:38 Follow up: Response: No adverse reaction oh 16:18 Drug: Rocephin (cefTRIAXone) 1 grams Route: IV; Rate: calculated rate; Site: left oh antecubital; 17:49 Drug: Rocephin (cefTRIAXone) 1 grams Route: IV; Rate: calculated rate; Site: left oh antecubital; Outcome: 16:53 ER care complete, transfer ordered by . maya 20:27 Patient left the ED. cw2 Addendum: 04/29/2021 07:59 Addendum: Culture Results: Positive urine culture. called [facility] 21st floor and e isabela spoke with Kandi Garcia/ faxed positive culture to [phone]. Signatures: Dispatcher [employer] EDMS Bev Lucas Joel, PA PA jmm Smirch, Shelby, RN RN ss Yana Estevez RN RN tw2 Trang [place], RN RN [email or web address] Libra Jesus [facility] Misael Michaels RN RN cw2 Linnea Li RN Fariba [email or web address] Corrections: (The following items were deleted from the chart) 04/25 11:50 11:48 Allergies: Sulfa; tw2 tw2 12:41 12:40 Inserted saline lock: 22 gauge in left antecubital area, using aseptic technique. Blood collected. 16:17 16:14 Devi cath inserted, using sterile technique, 16 Fr., by me, balloon inflated, to vg1 gravity drainage, vg1 16:22 16:14 Devi cath inserted, using sterile technique, 16 Fr., by me, balloon inflated, to vg1 gravity drainage, returned 300 ml output. Patient tolerated well. vg1 17:40 17:33 BP 119 / 96; Pulse 90bpm; Resp 20bpm; Pulse Ox 96% RA; oh oh 18:16 16:37 CORONAVIRUS drawn and sent. 1 EDMS
--- NOTE | 2021-04-25 17:13 | RAD REPORT ---
EXAM DESCRIPTION: RAD - Abdomen 1 View (KUB) - 04/25/2021 4:51 pm CLINICAL HISTORY: evaluate for kidney stone Pain COMPARISON: Abdomen Pelvis Wo Contrast dated 04/25/2021 FINDINGS: The bowel gas pattern is non-obstructive. No evidence of free air or pneumatosis. [place] c alculus in the right inferior pelvis likely represents distal right ureter stone.
[2021-04-25 20:36] VITALS: BP 119/96; TEMP 98.7; O2SAT 96
--- NOTE | 2021-04-26 15:58 | EKG ---
Test Date: 2021-04-25 Test Time: 12:02:38 Workers [employer] Legal Secretary: RUSSELL MEASUREMENT RESULTS: Intervals: Rate: 56 WY: 250 QRSD: 90 QT: 488 QTc: 470 [place]: P: 49 WY: 250 QRS: -28 T: 62 INTERPRETIVE STATEMENTS: Sinus bradycardia with 1st degree AV block Voltage criteria for left ventricular hypertrophy Abnormal ECG Compared to ECG 02/05/2021 17:16:33 Sinus rhythm no longer present Left-axis deviation no longer present Electronically Signed On 04-26-21 15:56:32 CDT by Guido Farrell
== END 2021-04-25 20:27 | disposition short-term general hospital (02) ==
LOC: ER 11:36
DX: N20.1 Calculus of ureter (principal); N39.0 Urinary tract infection, site not specified; E03.9 Hypothyroidism, unspecified; J44.9 Chronic obstructive pulmonary disease, unspecified; Z79.01 Long term (current) use of anticoagulants; Z88.2 Allergy status to sulfonamides; Z88.5 Allergy status to narcotic agent; Z20.822 Contact with and (suspected) exposure to COVID-19
CPT/HCPCS: 93005; 87088; 85025; 87086; 80048; 36415; 80076; 87077 ×2; 87186 ×2; 81003; 83690; 74176; 74018; 51702; 96375; 96372; 96374; 99285; U0003; J1200; J3010; J7050; J2405

== ENCOUNTER 2021-06-15 18:18 | Emergency (ER) | payer OTHER ==
--- OUTSIDE RECORDS SUMMARY | 2021-06-15 18:22 | XMS REPORT | Continuity of Care Document ---
:1950 Author Organization [facility] t Address [address] [place] [address] Care Team Providers Name Role Phone JULIA SANTILLAN Primary Care Physician Unavailable Tia-Maria Ineso_A_AH Attending Clinician Unavailable Alisson VELIZ Attending Clinician Unavailable TIARRA Attending Clinician Unavailable Doctor Unassigned, Name Attending Clinician Unavailable Tia-Carolinaayo_A_AH Admitting Clinician Unavailable OFELIA Admitting Clinician Unavailable Payers Payer Name Policy Type Policy Number Effective Date Expiration Date S tricia [place] - [id number] 2019 [employer] 00:00:00 (MEDICARE REPLACEMENT/ADVANT AGE - HMO) [employer] MEDICARE HMO [id number] 2020 POS 00:00:00 Problems This patient has no known problems. Allergies, Adverse Reactions, Alerts Allergy Allergy Status Severity Reaction(s) Onset Inactive Treating Comm ents Source Name Type Date Date Clinician SULFA Allergy Active N\T\V [facility] ([facility] NO KNOWN Allergy Active [facility] Medications This patient has no known medications. Vital Signs Vital Name Observation Time Observation Value Comments Source WEIGHT 2021-04-30 12:00:00 59.149 kg HEIGHT 2021-04-30 12:00:00 162.6 cm WEIGHT 2021-04-30 12:00:00 59.149 kg HEIGHT 2021-04-30 12:00:00 162.6 cm Procedures This patient has no known procedures. Encounters Start End Encounter Admission Attending Care Care Encounter Source Date/Time Date/Time Type Type Clinicians Facility Department ID 2021-06-[address] [id number] 21:37:11 _A_AH [id number] Family Practic e 2021-04-25 2021-05-01 [facility] Surgery [id number] [facility] 21:06:00 18:37:00 , ERIC 2020-06-19 2020-06-19 Orders Doctor MARIBEL [id number] 00:00:00 00:00:00 Only Unassigned, BIA [id number] [facility] [id number] Results Test Description Test Time Test Comments Results Result Comments Source AFB CULTURE + SMEAR (NON-SPUTUM) 2021-06-14 12:08:57 Test Item Value Reference Range Interpretation Comme nts CULTURE (BEAKER) (test code = 1095) No acid-fast bacilli isolated i n 42 days AFB SMEAR (BEAKER) (test code = 994) No acid fast bacilli seen FUNGUS CULTURE + [id number] 01:15:05 Test Item Value Reference Range Interpretation Comments CULTURE (BEAKER) (test No fungus isolated in code = 1095) 28 days FUNGUS SMEAR (BEAKER) No fungi seen (test code = 1406) BLOOD [id number] 20:01:08 Test Item Value Reference Range Interpretation Comments CULTURE (BEAKER) (test No growth in 5 days code = 1095) The specimen volume collected for this blood culture was below the optimum (10 mL per bottle or 20 mL total). Use of lower volumes may adversely affect recovery and/or detection times of some organisms.SURGICALLY OBTAINED CULTURE + GRAM [id number] 12:12:16 Test Item Value Reference Interpretation Comments Range CULTURE (BEAKER) (test ENTEROCOCCUS A 3+ En terococcus code = 1095) FAECALIS faecalis Ampicillin (test code See_Comment S [Auto mated = 26) message] The system which generated this result transmitted reference range : Susceptible 0-8 , Resistant <0 or >8 . The reference range was not used to interpret this result as normal/abnormal . Linezolid (test code = See_Comment S [Aut omated 40) message] The system which generated this result transmitted reference range : Susceptible 0-2 , Resistant <0 or >2 . The reference range was not used to interpret this result as normal/abnormal . Vancomycin (test code See_Comment S [Auto mated = 13) message] The system which generated this result transmitted reference range : Susceptible 0-4 , Resistant <0 or >4 . The reference range was not used to interpret this result as normal/abnormal . CULTURE (BEAKER) (test PROTEUS MIRABILIS A 3+ Proteus code = 1095) mirabilis Amikacin (test code = S 1) Ampicillin + Sulbactam S (test code = 6) Aztreonam (test code = S 32) Cefepime (test code = S 51) Cefoxitin (test code = S 68) Ceftazidime (test code S = 27) Ceftriaxone (test code S = 52) Ertapenem (test code = S 38) Gentamicin (test code S = 18) Levofloxacin (test S code = 22) Meropenem (test code = S 34) Nitrofurantoin (test R code = 23) Piperacillin + S Tazobactam (test code = 29) Tetracycline (test R code = 2) Tobramycin (test code S = 25) Trimethoprim + S Sulfamethoxazole (test code = 47) GRAM STAIN RESULT <1+ WBCs (BEAKER) (test code = 1123) GRAM STAIN RESULT No organisms seen (BEAKER) (test code = 940338) BASIC METABOLIC [id number] 06:57:48 Test Item Value Reference Range Interpretation Comments SODIUM (BEAKER) 137 meq/L 136-145 (test code = 381) POTASSIUM (BEAKER) 4.0 meq/L 3.5-5.1 (test code = 379) CHLORIDE (BEAKER) 109 meq/L 98-107 H (test code = 382) CO2 (BEAKER) (test 21 meq/L 22-29 L code = 355) BLOOD UREA NITROGEN 15 mg/dL 7-21 (BEAKER) (test code = 354) CREATININE (BEAKER) 1.04 mg/dL 0.57-1.25 (test code = 358) GLUCOSE RANDOM 73 mg/dL 70-105 (BEAKER) (test code = 652) CALCIUM (BEAKER) 9.4 mg/dL 8.4-10.2 (test code = 697) EGFR (BEAKER) (test 52 mL/min/1.73 ESTIMA SERGIO GFR IS code = 1092) sq m NOT ACCURATE CREATININE CLEARANCE IN PREDICTING GLOMERULAR FILTRATION RATE . ESTIMATED GFR I S NOT APPLICABLE FOR DIALYSIS PATIEN TS. Partner Marketing Intern ID - HURRICANE FCBC W/PLT COUNT & AUTO [id number] 06:08:09 Test Item Value Reference Range Interpretation Comments WHITE BLOOD CELL COUNT (BEAKER) 6.8 K/ L 3.5-10.5 (test code = 775) RED BLOOD CELL COUNT (BEAKER) 2.95 M/ L 3.93-5.22 L (test code = 761) HEMOGLOBIN (BEAKER) (test code = 8.9 GM/DL 11.2-15.7 L 410) HEMATOCRIT (BEAKER) (test code = 28.5 % 34.1-44.9 L 411) MEAN CORPUSCULAR VOLUME (BEAKER) 96.6 fL 79.4-94.8 H (test code = 753) MEAN CORPUSCULAR HEMOGLOBIN 30.2 pg 25.6-32.2 (BEAKER) (test code = 751) MEAN CORPUSCULAR HEMOGLOBIN CONC 31.2 GM/DL 32.2-35.5 L (BEAKER) (test code = 752) RED CELL DISTRIBUTION WIDTH 18.2 % 11.7-14.4 H (BEAKER) (test code = 412) PLATELET COUNT (BEAKER) (test 133 K/CU MM 150-450 L code = 756) MEAN PLATELET VOLUME (BEAKER) 10.9 fL 9.4-12.3 (test code = 754) NUCLEATED RED BLOOD CELLS 0 /100 WBC 0-0 (BEAKER) (test code = 413) NEUTROPHILS RELATIVE PERCENT 55 % (BEAKER) (test code = 429) LYMPHOCYTES RELATIVE PERCENT 25 % (BEAKER) (test code = 430) MONOCYTES RELATIVE PERCENT 11 % (BEAKER) (test code = 431) EOSINOPHILS RELATIVE PERCENT 3 % (BEAKER) (test code = 432) BASOPHILS RELATIVE PERCENT 0 % (BEAKER) (test code = 437) NEUTROPHILS ABSOLUTE COUNT 3.70 K/ L 1.56-6.13 (BEAKER) (test code = 670) LYMPHOCYTES ABSOLUTE COUNT 1.71 K/ L 1.18-3.74 (BEAKER) (test code = 414) MONOCYTES ABSOLUTE COUNT (BEAKER) 0.75 K/ L 0.24-0.36 H (test code = 415) EOSINOPHILS ABSOLUTE COUNT 0.21 K/ L 0.04-0.36 (BEAKER) (test code = 416) BASOPHILS ABSOLUTE COUNT (BEAKER) 0.02 K/ L 0.01-0.08 (test code = 417) IMMATURE GRANULOCYTES-RELATIVE 5 % 0-1 H PERCENT (BEAKER) (test code = 2801) BASIC METABOLIC [id number] 02:59:06 Test Item Value Reference Range Interpretation Comments SODIUM (BEAKER) 136 meq/L 136-145 (test code = 381) POTASSIUM (BEAKER) 4.8 meq/L 3.5-5.1 Specimen slightly (test code = 379) hemolyzed CHLORIDE (BEAKER) 110 meq/L 98-107 H (test code = 382) CO2 (BEAKER) (test 18 meq/L 22-29 L code = 355) BLOOD UREA NITROGEN 15 mg/dL 7-21 (BEAKER) (test code = 354) CREATININE (BEAKER) 0.90 mg/dL 0.57-1.25 Specimen slightly (test code = 358) hemolyzed GLUCOSE RANDOM 78 mg/dL 70-105 (BEAKER) (test code = 652) CALCIUM (BEAKER) 9.4 mg/dL 8.4-10.2 (test code = 697) EGFR (BEAKER) (test 62 mL/min/1.73 ESTIMA SERGIO GFR IS code = 1092) sq m NOT ACCURATE CREATININE CLEARANCE IN PREDICTING GLOMERULAR FILTRATION RATE . ESTIMATED GFR I S NOT APPLICABLE FOR DIALYSIS PATIEN TS. Partner Marketing Intern ID - DBCBC W/PLT COUNT & AUTO [id number] 02:30:27 Test Item Value Reference Range Interpretation Comments WHITE BLOOD CELL COUNT (BEAKER) 6.9 K/ L 3.5-10.5 (test code = 775) RED BLOOD CELL COUNT (BEAKER) 2.63 M/ L 3.93-5.22 L (test code = 761) HEMOGLOBIN (BEAKER) (test code = 8.1 GM/DL 11.2-15.7 L 410) HEMATOCRIT (BEAKER) (test code = 25.1 % 34.1-44.9 L 411) MEAN CORPUSCULAR VOLUME (BEAKER) 95.4 fL 79.4-94.8 H (test code = 753) MEAN CORPUSCULAR HEMOGLOBIN 30.8 pg 25.6-32.2 (BEAKER) (test code = 751) MEAN CORPUSCULAR HEMOGLOBIN CONC 32.3 GM/DL 32.2-35.5 (BEAKER) (test code = 752) RED CELL DISTRIBUTION WIDTH 18.0 % 11.7-14.4 H (BEAKER) (test code = 412) PLATELET COUNT (BEAKER) (test 131 K/CU MM 150-450 L code = 756) MEAN PLATELET VOLUME (BEAKER) 10.2 fL 9.4-12.3 (test code = 754) NUCLEATED RED BLOOD CELLS 0 /100 WBC 0-0 (BEAKER) (test code = 413) NEUTROPHILS RELATIVE PERCENT 70 % (BEAKER) (test code = 429) LYMPHOCYTES RELATIVE PERCENT 21 % (BEAKER) (test code = 430) MONOCYTES RELATIVE PERCENT 7 % (BEAKER) (test code = 431) EOSINOPHILS RELATIVE PERCENT 2 % (BEAKER) (test code = 432) BASOPHILS RELATIVE PERCENT 0 % (BEAKER) (test code = 437) NEUTROPHILS ABSOLUTE COUNT 4.77 K/ L 1.56-6.13 (BEAKER) (test code = 670) LYMPHOCYTES ABSOLUTE COUNT 1.41 K/ L 1.18-3.74 (BEAKER) (test code = 414) MONOCYTES ABSOLUTE COUNT (BEAKER) 0.48 K/ L 0.24-0.36 H (test code = 415) EOSINOPHILS ABSOLUTE COUNT 0.12 K/ L 0.04-0.36 (BEAKER) (test code = 416) BASOPHILS ABSOLUTE COUNT (BEAKER) 0.01 K/ L 0.01-0.08 (test code = 417) IMMATURE GRANULOCYTES-RELATIVE 1 % 0-1 PERCENT (BEAKER) (test code = 2801) ANAEROBIC [id number] 11:36:21 Test Item Value Reference Range Interpretation Comments CULTURE (BEAKER) (test No anaerobes isolated code = 1095) CBC W/PLT COUNT & AUTO [id number] 07:01:08 Test Item Value Reference Range Interpretation Comments WHITE BLOOD CELL COUNT 7.6 K/ L 3.5-10.5 (BEAKER) (test code = 775) RED BLOOD CELL COUNT 2.54 M/ L 3.93-5.22 L (BEAKER) (test code = 761) HEMOGLOBIN (BEAKER) 7.7 GM/DL 11.2-15.7 L (test code = 410) HEMATOCRIT (BEAKER) 24.5 % 34.1-44.9 L (test code = 411) MEAN CORPUSCULAR 96.5 fL 79.4-94.8 H Discordant results VOLUME (BEAKER) (test compar ed to code = 753) previous, clini kylee correlation required. MEAN CORPUSCULAR 30.3 pg 25.6-32.2 HEMOGLOBIN (BEAKER) (test code = 751) MEAN CORPUSCULAR 31.4 GM/DL 32.2-35.5 L HEMOGLOBIN CONC (BEAKER) (test code = 752) RED CELL DISTRIBUTION 18.5 % 11.7-14.4 H WIDTH (BEAKER) (test code = 412) PLATELET COUNT 106 K/CU MM 150-450 L (BEAKER) (test code = 756) MEAN PLATELET VOLUME 10.8 fL 9.4-12.3 (BEAKER) (test code = 754) NUCLEATED RED BLOOD 0 /100 WBC 0-0 CELLS (BEAKER) (test code = 413) NEUTROPHILS RELATIVE 82 % PERCENT (BEAKER) (test code = 429) LYMPHOCYTES RELATIVE 13 % PERCENT (BEAKER) (test code = 430) MONOCYTES RELATIVE 4 % PERCENT (BEAKER) (test code = 431) EOSINOPHILS RELATIVE 1 % PERCENT (BEAKER) (test code = 432) BASOPHILS RELATIVE 0 % PERCENT (BEAKER) (test code = 437) NEUTROPHILS ABSOLUTE 6.22 K/ L 1.56-6.13 H COUNT (BEAKER) (test code = 670) LYMPHOCYTES ABSOLUTE 0.97 K/ L 1.18-3.74 L COUNT (BEAKER) (test code = 414) MONOCYTES ABSOLUTE 0.27 K/ L 0.24-0.36 COUNT (BEAKER) (test code = 415) EOSINOPHILS ABSOLUTE 0.08 K/ L 0.04-0.36 COUNT (BEAKER) (test code = 416) BASOPHILS ABSOLUTE 0.01 K/ L 0.01-0.08 COUNT (BEAKER) (test code = 417) IMMATURE 1 % 0-1 GRANULOCYTES-RELATIVE PERCENT (BEAKER) (test code = 2801) BASIC METABOLIC [id number] 06:54:01 Test Item Value Reference Range Interpretation Comments SODIUM (BEAKER) 137 meq/L 136-145 (test code = 381) POTASSIUM (BEAKER) 4.6 meq/L 3.5-5.1 (test code = 379) CHLORIDE (BEAKER) 114 meq/L 98-107 H (test code = 382) CO2 (BEAKER) (test 18 meq/L 22-29 L code = 355) BLOOD UREA NITROGEN 19 mg/dL 7-21 (BEAKER) (test code = 354) CREATININE (BEAKER) 1.15 mg/dL 0.57-1.25 (test code = 358) GLUCOSE RANDOM 72 mg/dL 70-105 (BEAKER) (test code = 652) CALCIUM (BEAKER) 9.9 mg/dL 8.4-10.2 (test code = 697) EGFR (BEAKER) (test 47 mL/min/1.73 ESTIMA SERGIO GFR IS code = 1092) sq m NOT ACCURATE CREATININE CLEARANCE IN PREDICTING GLOMERULAR FILTRATION RATE . ESTIMATED GFR I S NOT APPLICABLE FOR DIALYSIS PATIEN TS. Partner Marketing Intern ID - NAIMA WVITAMIN B12 AND [id number] 15:03:06 Test Item Value Reference Range Interpretation Comments VITAMIN B12 (BEAKER) 347 pg/mL 213-816 (test code = 774) FOLATE (BEAKER) 1.70 ng/mL See_Comment L [Automated message] (test code = 362) The system which generated this result transmitted ref erence range: >=7.00. The reference range was not used to interpr et this result as normal/abnormal . Partner Marketing Intern ID - MONY [id number] 15:03:05 Test Item Value Reference Range Interpretation Comments FERRITIN (BEAKER) (test code = 351.19 ng/mL 5.00-275.00 H 361) Partner Marketing Intern ID - MONY DANON, TIBC, % SAT. (WITHOUT FERRITIN)2021-04-28 14:27:22 Test Item Value Reference Range Interpretation Comments IRON (BEAKER) (test code = 547) 14.0 ug/dL 40.0-160.0 L TOTAL IRON BINDING CAPACITY 149 ug/dL 250-450 L (BEAKER) (test code = 769) IRON % SATURATION (2) (BEAKER) 9 % 20-55 L (test code = 2590) Partner Marketing Intern ID - MONY GCBC W/PLT COUNT & AUTO [id number] 07:58:36 Test Item Value Reference Range Interpretation Comments WHITE BLOOD CELL COUNT (BEAKER) 10.1 K/ L 3.5-10.5 (test code = 775) RED BLOOD CELL COUNT (BEAKER) 2.83 M/ L 3.93-5.22 L (test code = 761) HEMOGLOBIN (BEAKER) (test code = 8.7 GM/DL 11.2-15.7 L 410) HEMATOCRIT (BEAKER) (test code = 29.8 % 34.1-44.9 L 411) MEAN CORPUSCULAR VOLUME (BEAKER) 105.3 fL 79.4-94.8 H (test code = 753) MEAN CORPUSCULAR HEMOGLOBIN 30.7 pg 25.6-32.2 (BEAKER) (test code = 751) MEAN CORPUSCULAR HEMOGLOBIN CONC 29.2 GM/DL 32.2-35.5 L (BEAKER) (test code = 752) RED CELL DISTRIBUTION WIDTH 19.0 % 11.7-14.4 H (BEAKER) (test code = 412) PLATELET COUNT (BEAKER) (test 102 K/CU MM 150-450 L code = 756) MEAN PLATELET VOLUME (BEAKER) 11.8 fL 9.4-12.3 (test code = 754) NUCLEATED RED BLOOD CELLS 0 /100 WBC 0-0 (BEAKER) (test code = 413) NEUTROPHILS RELATIVE PERCENT 90 % (BEAKER) (test code = 429) LYMPHOCYTES RELATIVE PERCENT 7 % (BEAKER) (test code = 430) MONOCYTES RELATIVE PERCENT 3 % (BEAKER) (test code = 431) EOSINOPHILS RELATIVE PERCENT 1 % (BEAKER) (test code = 432) BASOPHILS RELATIVE PERCENT 0 % (BEAKER) (test code = 437) NEUTROPHILS ABSOLUTE COUNT 9.00 K/ L 1.56-6.13 H (BEAKER) (test code = 670) LYMPHOCYTES ABSOLUTE COUNT 0.70 K/ L 1.18-3.74 L (BEAKER) (test code = 414) MONOCYTES ABSOLUTE COUNT (BEAKER) 0.26 K/ L 0.24-0.36 (test code = 415) EOSINOPHILS ABSOLUTE COUNT 0.05 K/ L 0.04-0.36 (BEAKER) (test code = 416) BASOPHILS ABSOLUTE COUNT (BEAKER) 0.00 K/ L 0.01-0.08 L (test code = 417) IMMATURE GRANULOCYTES-RELATIVE 0 % 0-1 PERCENT (BEAKER) (test code = 2801) BASIC METABOLIC [id number] 07:02:31 Test Item Value Reference Range Interpretation Comments SODIUM (BEAKER) 132 meq/L 136-145 L (test code = 381) POTASSIUM (BEAKER) 5.0 meq/L 3.5-5.1 (test code = 379) CHLORIDE (BEAKER) 111 meq/L 98-107 H (test code = 382) CO2 (BEAKER) (test 14 meq/L 22-29 L code = 355) BLOOD UREA NITROGEN 26 mg/dL 7-21 H (BEAKER) (test code = 354) CREATININE (BEAKER) 1.65 mg/dL 0.57-1.25 H (test code = 358) GLUCOSE RANDOM 71 mg/dL 70-105 (BEAKER) (test code = 652) CALCIUM (BEAKER) 9.4 mg/dL 8.4-10.2 (test code = 697) EGFR (BEAKER) (test 31 mL/min/1.73 ESTIMA SERGIO GFR IS code = 1092) sq m NOT ACCURATE CREATININE CLEARANCE IN PREDICTING GLOMERULAR FILTRATION RATE . ESTIMATED GFR I S NOT APPLICABLE FOR DIALYSIS PATIEN TS. Partner Marketing Intern ID - DBCT, [id number] 19:04:00s/p right ureteral stent placement 04/26Unlisted Reason for Exam - Click Yes and Enter Reason Below->YesUnlisted Reason for Exam->intra abdominal bleedingWill this procedure require oral contrast?->NoMERRY [facility] : 1950 Sex: FFINAL REPORT ABDOMINAL AND PELVIS CT DATED 04/27/2021 CLINICAL INFO RMATION: Hypotensionintra abdominal bleeding TECHNIQUE: Axial images of the abdomen and pelvis were obtained from diaphragm to the pubic symphysis without GI or intravenous contrast. This exam was performed according to our departmental dose-optimization program, which includes automated exposure co ntrol, adjustment of the mA and/or kV according to patient size and/or use of interactive reconstruction technique. COMMENT: There is trace bilateral pleural effusion. Interstitial pulmonary disease isseen in both lung bases with honeycombing formation suggestive of fibrotic changes. Liver and spleenare normal in size without focal abnormality. Gallbladder is distended. No gallstone or biliary dilatation is noted. Pancreas and adrenals are unremarkable. Left kidney is atrophic. There is compensatory enlargement of the right kidney. A double-J ureter stent is seen on the right. No hydronephrosi s or hydroureter is seen. Several cysts are seen in the right kidney with largest measuring 1.9 cm. Diverticular disease is seen in the large bowel without diverticulitis. The small bowel and appendix are normal in caliber. Vascular calcification is seen in the abdominal aorta and bilateral iliac arter ies. Uterus is atrophic. The urinary bladder is minimally distended. Normal in caliber. No mass, adenopathy or ascites is present. IMPRESSION: 1. Trace bilateral pleural effusion.2. Findings suggestive of pulmonary fibrosis.3. Atrophic left kidney with compensatory enlargement of the right kidney.3. D iverticulosis without diverticulitis.4. No hematoma or hemorrhage in the abdomen or pelvis. Signed: Russell Rangel MDReport Verified Date/Time: 04/27/2021 19:04:40 Reading Location: [address] Body Reading Room [id number] 16:57:43 Test Item Value Reference Range Interpretation Comments CORTISOL, TOTAL (BEAKER) (test code 6.2 ug/dL 3.7-19.4 = 2755) Partner Marketing Intern ID - DBCOMPREHENSIVE METABOLIC [id number] 16:55:00 Test Item Value Reference Range Interpretation Comments TOTAL PROTEIN 4.6 gm/dL 6.0-8.3 L (BEAKER) (test code = 770) ALBUMIN (BEAKER) 2.5 g/dL 3.5-5.0 L (test code = 1145) ALKALINE PHOSPHATASE 60 U/L 40-150 (BEAKER) (test code = 346) BILIRUBIN TOTAL 0.3 mg/dL 0.2-1.2 (BEAKER) (test code = 377) SODIUM (BEAKER) (test 133 meq/L 136-145 L code = 381) POTASSIUM (BEAKER) 4.1 meq/L 3.5-5.1 (test code = 379) CHLORIDE (BEAKER) 110 meq/L 98-107 H (test code = 382) CO2 (BEAKER) (test 15 meq/L 22-29 L code = 355) BLOOD UREA NITROGEN 26 mg/dL 7-21 H (BEAKER) (test code = 354) CREATININE (BEAKER) 1.73 mg/dL 0.57-1.25 H (test code = 358) GLUCOSE RANDOM 64 mg/dL 70-105 L (BEAKER) (test code = 652) CALCIUM (BEAKER) 8.1 mg/dL 8.4-10.2 L (test code = 697) AST (SGOT) (BEAKER) 15 U/L 5-34 (test code = 353) ALT (SGPT) (BEAKER) 8 U/L 6-55 (test code = 347) EGFR (BEAKER) (test 29 mL/min/1.73 ESTIMA SERGIO GFR IS code = 1092) sq m NOT ACCURATE CREATININE CLEARANCE IN PREDICTING GLOMERULAR FILTRATION RATE . ESTIMATED GFR I S NOT APPLICABLE FOR DIALYSIS PATIEN TS. Partner Marketing Intern ID - DB(CELLAVISION MANUAL DIFF)2021-04-27 16:49:11 Test Item Value Reference Range Interpretation Comments NEUTROPHILS - REL 98 % (CELLAVISION)(BEAKER) (test code = 2816) LYMPHOCYTES - REL 1 % (CELLAVISION)(BEAKER) (test code = 2817) BANDS - REL (CELLAVISION)(BEAKER) 1 % 0-10 (test code = 2826) NEUTROPHILS - ABS 11.07 K/ul 1.56-6.13 H (CELLAVISION)(BEAKER) (test code = 2830) LYMPHOCYTES - ABS 0.11 K/ul 1.18-3.74 L (CELLAVISION)(BEAKER) (test code = 2831) BANDS - ABS (CELLAVISION)(BEAKER) 0.11 K/uL 0.00-0.80 (test code = 2840) TOTAL COUNTED (BEAKER) (test code 100 = 1351) PLT MORPHOLOGY (BEAKER) (test code Normal = 486) VACUOLATED NEUTROPHILS (BEAKER) Present (test code = 483) ANISOCYTOSIS (BEAKER) (test code = 1+ few 961) MACROCYTES (BEAKER) (test code = 1+ few 964) POIKILOCYTES (BEAKER) (test code = 1+ few 966) BIRGIT CELLS (BEAKER) (test code = 1+ few 474) ARTIFACT (CELLAVISION)(BEAKER) Present (test code = 3432) PLATELET CONCENTRATION Decreased (CELLAVISION)(BEAKER) (test code = 3438) Partner Marketing Intern ID - Erin Dickerson comments: Slide comments:C-REACTIVE PROTEIN 2021-04-27 16:37:03 Test Item Value Reference Range Interpretation Comments C-REACTIVE PROTEIN (BEAKER) (test 16.36 mg/dL 0.00-0.50 H code = 676) Partner Marketing Intern ID - DBLACTIC ACID, [id number] 16:32:57 Test Item Value Reference Range Interpretation Comments LACTATE BLOOD VENOUS (2) (BEAKER) 1.25 mmol/L 0.50-2.20 (test code = 2872) Partner Marketing Intern ID - DBCBC W/PLT COUNT & AUTO [id number] 16:22:05 Test Item Value Reference Range Interpretation Comments WHITE BLOOD CELL COUNT (BEAKER) 11.3 K/ L 3.5-10.5 H (test code = 775) RED BLOOD CELL COUNT (BEAKER) 2.66 M/ L 3.93-5.22 L (test code = 761) HEMOGLOBIN (BEAKER) (test code = 8.1 GM/DL 11.2-15.7 L 410) HEMATOCRIT (BEAKER) (test code = 26.9 % 34.1-44.9 L 411) MEAN CORPUSCULAR VOLUME (BEAKER) 101.1 fL 79.4-94.8 H (test code = 753) MEAN CORPUSCULAR HEMOGLOBIN 30.5 pg 25.6-32.2 (BEAKER) (test code = 751) MEAN CORPUSCULAR HEMOGLOBIN CONC 30.1 GM/DL 32.2-35.5 L (BEAKER) (test code = 752) RED CELL DISTRIBUTION WIDTH 18.6 % 11.7-14.4 H (BEAKER) (test code = 412) PLATELET COUNT (BEAKER) (test 100 K/CU MM 150-450 L code = 756) MEAN PLATELET VOLUME (BEAKER) 12.2 fL 9.4-12.3 (test code = 754) NUCLEATED RED BLOOD CELLS 0 /100 WBC 0-0 (BEAKER) (test code = 413) CBC W/PLT COUNT & AUTO [id number] 12:28:55 Test Item Value Reference Range Interpretation Comments WHITE BLOOD CELL COUNT (BEAKER) 10.8 K/ L 3.5-10.5 H (test code = 775) RED BLOOD CELL COUNT (BEAKER) 2.48 M/ L 3.93-5.22 L (test code = 761) HEMOGLOBIN (BEAKER) (test code = 7.7 GM/DL 11.2-15.7 L 410) HEMATOCRIT (BEAKER) (test code = 24.9 % 34.1-44.9 L 411) MEAN CORPUSCULAR VOLUME (BEAKER) 100.4 fL 79.4-94.8 H (test code = 753) MEAN CORPUSCULAR HEMOGLOBIN 31.0 pg 25.6-32.2 (BEAKER) (test code = 751) MEAN CORPUSCULAR HEMOGLOBIN CONC 30.9 GM/DL 32.2-35.5 L (BEAKER) (test code = 752) RED CELL DISTRIBUTION WIDTH 18.5 % 11.7-14.4 H (BEAKER) (test code = 412) PLATELET COUNT (BEAKER) (test code 83 K/CU MM 150-450 L = 756) MEAN PLATELET VOLUME (BEAKER) 10.9 fL 9.4-12.3 (test code = 754) NUCLEATED RED BLOOD CELLS (BEAKER) 0 /100 WBC 0-0 (test code = 413) NEUTROPHILS RELATIVE PERCENT 93 % (BEAKER) (test code = 429) LYMPHOCYTES RELATIVE PERCENT 3 % (BEAKER) (test code = 430) MONOCYTES RELATIVE PERCENT 2 % (BEAKER) (test code = 431) EOSINOPHILS RELATIVE PERCENT 1 % (BEAKER) (test code = 432) BASOPHILS RELATIVE PERCENT 0 % (BEAKER) (test code = 437) NEUTROPHILS ABSOLUTE COUNT 10.02 K/ L 1.56-6.13 H (BEAKER) (test code = 670) LYMPHOCYTES ABSOLUTE COUNT 0.30 K/ L 1.18-3.74 L (BEAKER) (test code = 414) MONOCYTES ABSOLUTE COUNT (BEAKER) 0.20 K/ L 0.24-0.36 L (test code = 415) EOSINOPHILS ABSOLUTE COUNT 0.09 K/ L 0.04-0.36 (BEAKER) (test code = 416) BASOPHILS ABSOLUTE COUNT (BEAKER) 0.02 K/ L 0.01-0.08 (test code = 417) IMMATURE GRANULOCYTES-RELATIVE 2 % 0-1 H PERCENT (BEAKER) (test code = 2801) BLOOD GAS, [id number] 11:55:59 Test Item Value Reference Range Interpretation Comments PH ARTERIAL (BEAKER) (test code = 7.32 7.35-7.45 L 383) PCO2 ARTERIAL (BEAKER) (test code 34 mm Hg 35-45 L = 384) PO2 ARTERIAL (BEAKER) (test code 102 mm Hg 80-90 H = 385) O2 SATURATION ARTERIAL (BEAKER) 97.3 % 96.0-97.0 H (test code = 386) HCO3 ARTERIAL (BEAKER) (test code 17 mmol/L 21-29 L = 388) BASE EXCESS ARTERIAL (BEAKER) -8.5 mmol/L -2.0-3.0 L (test code = 387) PATIENT TEMPERATURE (BEAKER) 37.0 (test code = 1818) FIO2 (BEAKER) (test code = 1819) 32.0 SPIN/CONCENTRATION [id number] 09:05:01 Test Item Value Reference Range Interpretation Comments CONCENTRATION CHARGED (BEAKER) (test Done code = 2657) RAD, CHEST, 1 VIEW, NON [id number] 08:55:00Reason for exam:->low [id number] this be performed at the bedside?->Yes [facility]ENTERName[facility] SHAKIR STEVENSON : 1950 Sex: FFINAL REPORT INDICATION: low o2 COMPARISON: None TECHNIQUE: Single frontal view of the chest. FINDINGS: Lungs and pleura: Bilateral airspace opacities concerning for multifocal pneumonia versus multifocal edema. No effusion.Heart and mediastinum: Normal heart size. Unremarkable mediastinal contours.Osseous structures: No acute abnormality.Other: None. IMPRESSION: Kirt ateral airspace opacities concerning for multifocal pneumonia versus multifocal edema. Signed: Berenice Bertrandepdianna Verified Date/Time: 04/27/2021 08:55:25 Reading Location: [facility] Radiology Reading Room BASIC METABOLIC [id number] 06:45:49 Test Item Value Reference Range Interpretation Comments SODIUM (BEAKER) 134 meq/L 136-145 L (test code = 381) POTASSIUM (BEAKER) 4.8 meq/L 3.5-5.1 (test code = 379) CHLORIDE (BEAKER) 108 meq/L 98-107 H (test code = 382) CO2 (BEAKER) (test 16 meq/L 22-29 L code = 355) BLOOD UREA NITROGEN 29 mg/dL 7-21 H (BEAKER) (test code = 354) CREATININE (BEAKER) 2.26 mg/dL 0.57-1.25 H (test code = 358) GLUCOSE RANDOM 63 mg/dL 70-105 L (BEAKER) (test code = 652) CALCIUM (BEAKER) 8.4 mg/dL 8.4-10.2 (test code = 697) EGFR (BEAKER) (test 21 mL/min/1.73 ESTIMA SERGIO GFR IS code = 1092) sq m NOT ACCURATE CREATININE CLEARANCE IN PREDICTING GLOMERULAR FILTRATION RATE . ESTIMATED GFR I S NOT APPLICABLE FOR DIALYSIS PATIEN TS. Partner Marketing Intern ID - RYAN LHEPATIC FUNCTION [id number] 06:34:17 Test Item Value Reference Range Interpretation Comments TOTAL PROTEIN (BEAKER) (test code = 4.6 gm/dL 6.0-8.3 L 770) ALBUMIN (BEAKER) (test code = 1145) 2.5 g/dL 3.5-5.0 L BILIRUBIN TOTAL (BEAKER) (test code 0.3 mg/dL 0.2-1.2 = 377) BILIRUBIN DIRECT (BEAKER) (test 0.2 mg/dL 0.1-0.5 code = 706) ALKALINE PHOSPHATASE (BEAKER) (test 55 U/L 40-150 code = 346) AST (SGOT) (BEAKER) (test code = 20 U/L 5-34 353) ALT (SGPT) (BEAKER) (test code = 6 U/L 6-55 347) Partner Marketing Intern ID Suman DAVIS [id number] 06:34:16 Test Item Value Reference Range Interpretation Comments MAGNESIUM (BEAKER) (test code = 2.1 mg/dL 1.6-2.6 627) Partner Marketing Intern ID Suman DAVIS LCBC W/PLT COUNT & AUTO [id number] 05:22:25 Test Item Value Reference Range Interpretation Comments WHITE BLOOD CELL COUNT 11.2 K/ L 3.5-10.5 H (BEAKER) (test code = 775) RED BLOOD CELL COUNT 2.88 M/ L 3.93-5.22 L (BEAKER) (test code = 761) HEMOGLOBIN (BEAKER) 8.8 GM/DL 11.2-15.7 L Discorda nt result (test code = 410) compared t o previous result. Clinica l correlation req uired HEMATOCRIT (BEAKER) 29.0 % 34.1-44.9 L (test code = 411) MEAN CORPUSCULAR 100.7 fL 79.4-94.8 H VOLUME (BEAKER) (test code = 753) MEAN CORPUSCULAR 30.6 pg 25.6-32.2 HEMOGLOBIN (BEAKER) (test code = 751) MEAN CORPUSCULAR 30.3 GM/DL 32.2-35.5 L HEMOGLOBIN CONC (BEAKER) (test code = 752) RED CELL DISTRIBUTION 18.7 % 11.7-14.4 H WIDTH (BEAKER) (test code = 412) PLATELET COUNT 94 K/CU MM 150-450 L (BEAKER) (test code = 756) MEAN PLATELET VOLUME 11.3 fL 9.4-12.3 (BEAKER) (test code = 754) NUCLEATED RED BLOOD 0 /100 WBC 0-0 CELLS (BEAKER) (test code = 413) NEUTROPHILS RELATIVE 89 % PERCENT (BEAKER) (test code = 429) LYMPHOCYTES RELATIVE 6 % PERCENT (BEAKER) (test code = 430) MONOCYTES RELATIVE 3 % PERCENT (BEAKER) (test code = 431) EOSINOPHILS RELATIVE 2 % PERCENT (BEAKER) (test code = 432) BASOPHILS RELATIVE 0 % PERCENT (BEAKER) (test code = 437) NEUTROPHILS ABSOLUTE 9.95 K/ L 1.56-6.13 H COUNT (BEAKER) (test code = 670) LYMPHOCYTES ABSOLUTE 0.64 K/ L 1.18-3.74 L COUNT (BEAKER) (test code = 414) MONOCYTES ABSOLUTE 0.35 K/ L 0.24-0.36 COUNT (BEAKER) (test code = 415) EOSINOPHILS ABSOLUTE 0.17 K/ L 0.04-0.36 COUNT (BEAKER) (test code = 416) BASOPHILS ABSOLUTE 0.02 K/ L 0.01-0.08 COUNT (BEAKER) (test code = 417) IMMATURE 1 % 0-1 GRANULOCYTES-RELATIVE PERCENT (BEAKER) (test code = 2801) FL, FLUORO, NON-SPECIFIC, UP TO 1 [id number] 09:48:00Reason for exam:- >CYSTOSCOPY LEFT URETERAL STENT PLACEMENT [facility] : 1950 Sex: FFluoroscopic unit utilized for a procedure performed in the OR. No interpretation was requested. Refer to the operative report for findings. Refer to PACS for patient radiation dose information.BASIC METABOLIC [id number] 01:44:56 Test Item Value Reference Range Interpretation Comments SODIUM (BEAKER) 136 meq/L 136-145 (test code = 381) POTASSIUM (BEAKER) 4.9 meq/L 3.5-5.1 Specimen slightly (test code = 379) hemolyzed CHLORIDE (BEAKER) 109 meq/L 98-107 H (test code = 382) CO2 (BEAKER) (test 14 meq/L 22-29 L code = 355) BLOOD UREA NITROGEN 24 mg/dL 7-21 H (BEAKER) (test code = 354) CREATININE (BEAKER) 2.45 mg/dL 0.57-1.25 H Specimen slightly (test code = 358) hemolyzed GLUCOSE RANDOM 93 mg/dL 70-105 (BEAKER) (test code = 652) CALCIUM (BEAKER) 10.6 mg/dL 8.4-10.2 H (test code = 697) EGFR (BEAKER) (test 19 mL/min/1.73 ESTIMA SERGIO GFR IS code = 1092) sq m NOT ACCURATE CREATININE CLEARANCE IN PREDICTING GLOMERULAR FILTRATION RATE . ESTIMATED GFR I S NOT APPLICABLE FOR DIALYSIS PATIEN TS. Partner Marketing Intern ID - PIAYA [id number] 01:41:38 Test Item Value Reference Range Interpretation Comments PHOSPHORUS (BEAKER) 2.9 mg/dL 2.3-4.7 Specimen slightly (test code = 604) hemolyzed Partner Marketing Intern ID - PIEMERALD [id number] 01:41:37 Test Item Value Reference Range Interpretation Comments MAGNESIUM (BEAKER) 1.5 mg/dL 1.6-2.6 L Specimen slightly (test code = 627) hemolyzed Partner Marketing Intern ID - PIEMERALD [id number] 01:25:13 Test Item Value Reference Range Interpretation Comments PARTIAL THROMBOPLASTIN TIME 34.8 seconds 22.5-36.0 (BEAKER) (test code = 760) PROTHROMBIN TIME/[id number] 01:24:29 Test Item Value Reference Range Interpretation Comments PROTIME (BEAKER) 14.5 seconds 11.9-14.2 H (test code = 759) INR (BEAKER) (test 1.15 See_Comment [Automat ed message] code = 370) The system IForem generated this result transmitted ref erence range: <=5.90. The reference range was not used to int erpret this result as normal/abnormal . RECOMMENDED COUMADIN/WARFARIN INR THERAPY RANGESSTANDARD DOSE: 2.0 - 3.0 Includes: PROPHYLAXIS forvenous thrombosis, systemic embolization; TREATMENT for venous thrombosis and/or pulmonary embolus.HIGH RISK: Target INR is 2.5-3.5 for patients with mechanical heart valves.CBC (HEMOGRAM ONLY)2021-04-26 01:09:46 Test Item Value Reference Range Interpretation Comments WHITE BLOOD CELL COUNT (BEAKER) 26.2 K/ L 3.5-10.5 H (test code = 775) RED BLOOD CELL COUNT (BEAKER) 3.81 M/ L 3.93-5.22 L (test code = 761) HEMOGLOBIN (BEAKER) (test code = 11.8 GM/DL 11.2-15.7 410) HEMATOCRIT (BEAKER) (test code = 37.7 % 34.1-44.9 411) MEAN CORPUSCULAR VOLUME (BEAKER) 99.0 fL 79.4-94.8 H (test code = 753) MEAN CORPUSCULAR HEMOGLOBIN 31.0 pg 25.6-32.2 (BEAKER) (test code = 751) MEAN CORPUSCULAR HEMOGLOBIN CONC 31.3 GM/DL 32.2-35.5 L (BEAKER) (test code = 752) RED CELL DISTRIBUTION WIDTH 18.7 % 11.7-14.4 H (BEAKER) (test code = 412) PLATELET COUNT (BEAKER) (test 187 K/CU MM 150-450 code = 756) MEAN PLATELET VOLUME (BEAKER) 11.8 fL 9.4-12.3 (test code = 754) NUCLEATED RED BLOOD CELLS 0 /100 WBC 0-0 (BEAKER) (test code = 413) SARS-COV2/RT-PCR ([facility])2021-04-26 00:24:17 Test Item Value Reference Range Interpretation Comments SARS-COV2/RT-PCR Negative Negative The SARS-Co V-2 target (test code = nucleic acids a re not [id number]) detected in thi s specimen. Negative result s do not preclude SARS-C oV-2 infection and s hould not be used as the mamadou e basis for patient managem ent decisions. Nega tive results must be combine d with clinical observ ations, patient history , and epidemiological information. A false negativ e result may occur if a spec imen is improperly lina ected, transported or handled. This SARS CoV-2 test is a rapid, real-sindhu e RT-PCR test intended for th e qualitative detection of nu cleic acid from SARS-CoV-2 in a nasopharyngeal swab specimen collected from individuals suspected of CO VID-19 by their healthcar e provider. This test has been authorized by FDA under an EUA for use by authorized laboratories. This test is only authorized for the duration of the declaration that circumstances exist justifying the authorization of emergency use of in vitro diagnostic tests for detection and/or diagnosis of COVID-19 under Section 564(b)(1) of the Federal Food, Drug and Cosmetic Act, 21 U.S.C. 360bbb- 3(b)(1), unless the authorization is terminated or revoked sooner. Fact Sheet for Healthcare Providers: https://www.[employer]/Documents/Xpert%20Xpress%20SARS%20CoV-2/Fact%20Sheets/419-4652%20SARS-COV -2%20HEALTHCARE%20PROVIDERS%20FACT%20SHEET.pdf Fact Sheet for Healthcare Patients: https://www.[employer]/Documents/Xpert %20Xpress%20SARS%20CoV-2/Fact%20Sheets/3023801%84KOTF-KGT-0%20PATIENT%20FACT%20 SHEET.pdf
[2021-06-15] MEDS ORDERED: IBUPROFEN 400 MG TAB ONE (19:31)
[2021-06-15] MEDS ORDERED: ACETAMINOPHEN 325 MG TABLET ONE (19:31)
[2021-06-15] MEDS ORDERED: TRAMADOL HCL 50 MG TAB ONE (19:33)
--- NOTE | 2021-06-15 19:51 | RAD REPORT ---
EXAM DESCRIPTION: USExtremity Venous Uni Ltd06/15/2021 7:41 pm CLINICAL HISTORY: left leg pain COMPARISON: None. FINDINGS: Left common femoral, superficial femoral, popliteal and posterior tibial veins are compre ssible and demonstrate augmentation. Doppler demonstrates good flow. 2.3 centimeter Flores's cyst IMPRESSION: No evidence of deep venous thrombosis involving the left lower extremity.
--- NOTE | 2021-06-15 19:57 | RAD REPORT ---
EXAM DESCRIPTION: RAD - Knee Left 3 View - 06/15/2021 7:49 pm CLINICAL HISTORY: Left knee pain FINDINGS: No fracture or dislocation is seen. The bones appear osteoporotic. Small joint effusion.
[2021-06-15] MEDS ORDERED: FENTANYL CITR 100 MCG/2 ML ONE ×2 (20:03→21:06)
[2021-06-15] MEDS ORDERED: MORPHINE 2 MG/ML SYR ONE (21:59)
[2021-06-15] MEDS ORDERED: KETOROLAC 30 MG/ML INJ ONE (21:59)
--- NOTE | 2021-06-15 22:05 | ER ---
Nurse's Notes [facility] Name: Tri Torrez Age: 70 yrs Sex: Female : 1950 Arrival Date: 06/15/2021 Time: 18:20 Bed 9 Private MD: Diagnosis: Pain in left knee Presentation: 06/15 18:42 Chief complaint: Patient states: has an old injury to left knee, pain has gotten worse iw today. Coronavirus screen: At this time, the client does not indicate any symptoms associated with coronavirus-19. Ebola Screen: Patient negative for fever greater than or equal to 101.5 degrees Fahrenheit, and additional compatible Ebola Virus Disease symptoms Patient denies exposure to infectious person. Patient denies travel to an Ebola-affected area in the 21 days before illness onset. No symptoms or risks identified at this time. Initial Sepsis Screen: Does the patient meet any 2 criteria? No. Patient's initial sepsis screen is negative. Does the patient have a suspected source of infection? No. Patient's initial sepsis screen is negative. Risk Assessment: Do you want to hurt yourself or someone else? Patient reports no desire to harm self or others. Onset of symptoms was June 15, 2021. 18:42 Method Of Arrival: Wheelchair iw 18:42 Acuity: IVETH 4 iw Historical: - Allergies: 18:43 No Known Allergies; iw - PMHx: 18:43 born with 1 kidney; COPD; Hypothyroidism; Osteoporosis; Raynaud's Disease; Rheumatoid iw Arthritis; Scleroderma; - Immunization history:: Client reports receiving the 2nd dose of the Covid vaccine. - Social history:: Smoking status: Patient/guardian denies using tobacco. Screenin:46 Abuse screen: Denies threats or abuse. Denies injuries from another. Nutritional aj1 screening: No deficits noted. Tuberculosis screening: No symptoms or risk factors identified. Assessment: 19:43 General: Appears in no apparent distress. uncomfortable, Behavior is calm, cooperative, aj1 appropriate for age. Pain: Complains of pain in left knee Pain does not radiate. Pain currently is 10 out of 10 on a pain scale. Quality of pain is described as sharp. Neuro: Level of Consciousness is awake, alert, obeys commands, Oriented to person, place, time, situation. Cardiovascular: Patient's skin is warm and dry. Respiratory: Airway is patent Respiratory effort is even, unlabored, Respiratory pattern is regular, symmetrical. GI: No signs and/or symptoms were reported involving the gastrointestinal system. : No signs and/or symptoms were reported regarding the genitourinary system. EENT: No signs and/or symptoms were reported regarding the EENT system. Derm: No signs and/or symptoms reported regarding the dermatologic system. Skin is pink, warm \\T\\ dry. normal. Musculoskeletal: Range of motion: limited in left knee. 19:44 Reassessment: Patient medicated for pain per orders on SEP. Patient states "none of aj1 those are very strong, but I guess together they might help. I usually get a shot of something stronger for my pain." Patient was asked what pain medication typically works for her. Patient states that she doesn't know the name of it. Patient states that she is willing to try the pain medications that are currently ordered. 19:56 Reassessment: Patient states that she needs something different for pain. Instructed aj1 patient that I would notify the PA, but the medications that had been administered had not had enough time to start working yet. Patient states that it didn't matter because those pain medications would not work for her. 22:21 Reassessment: Patient is alert, oriented x 3, equal unlabored respirations, skin bb warm/dry/pink. pt verbalized understanding of and agrees to plan of care discharge instructions given pt assisted to exit via wheelchair accompanied by electronics technician apprentice and family. Vital Signs: 18:42 BP 102 / 51; Pulse 98; Resp 16; Temp 98.2; Pulse Ox 90% on R/A; Weight 67.13 kg; Height iw 5 ft. 4 in. (162.56 cm); Pain 10/10; 22:10 BP 134 / 67; Pulse 66; Resp 18; Pulse Ox 94% on R/A; mw2 18:42 Body Mass Index 25.40 (67.13 kg, 162.56 cm) iw ED Course: 18:20 Patient arrived in ED. ds1 18:43 Triage completed. iw 18:44 Arm band placed on. iw 19:00 Agapito Talbert PA is PHCP. cp 19:00 Maik Monae MD is Attending Physician. cp 19:24 Natacha Bustamante RN is Primary Nurse. aj1 19:41 US Extremity Venous Unilateral Ltd In Process Unspecified. EDMS 19:46 Patient has correct armband on for positive identification. Bed in low position. Call aj1 light in reach. 19:46 No provider procedures requiring assistance completed. aj1 19:49 XRAY Knee LEFT 3 view In Process Unspecified. EDMS 20:45 Inserted saline lock: 22 gauge in left forearm, using aseptic technique. Missed ds4 attempt(s): 22 gauge in left forearm. Bleeding controlled, band aid applied, catheter tip intact. 22:04 Gustavo Sharma MD is Referral Physician. cp 22:09 Assisted with bedpan. mw2 22:22 IV discontinued, intact, bleeding controlled, No redness/swelling at site. Pressure bb dressing applied. Administered Medications: 19:38 Drug: Ibuprofen 800 mg Route: PO; aj1 19:38 Drug: Tylenol 650 mg Route: PO; aj1 19:38 Drug: UltRAM (traMADol) 50 mg Route: PO; aj1 20:16 Drug: fentaNYL (PF) 25 mcg Route: IM; Site: left deltoid; aj1 21:09 Drug: NS 0.9% 500 ml Route: IV; Rate: 500 ml/hr; Site: left antecubital; aj1 21:09 Drug: fentaNYL (PF) 25 mcg Route: IVP; Site: left antecubital; aj1 22:03 Drug: Ketorolac 15 mg Route: IVP; Site: left antecubital; aj1 22:04 Drug: morphine 2 mg Route: IVP; Site: left antecubital; aj1 Outcome: 22:05 Discharge ordered by MD. cp 22:22 Discharged to home via wheelchair, with family. bb 22:22 Condition: stable 22:22 Discharge instructions given to patient, family, Instructed on discharge instructions, follow up and referral plans. medication usage, Demonstrated understanding of instructions, follow-up care, medications, Prescriptions given X 2. 22:23 Patient left the ED. bb Signatures: Dispatcher [employer] EDTX Natacha Bustamante RN RN aj1 Roxi Corona ds1 Tri Valentin RN RN bb Williams, Irene, RN RN iw Swanson, Donovan ds4 Agapito Talbert PA PA cp [place], MyKena mw2 Corrections: (The following items were deleted from the chart) 18:44 18:42 BP 102 / 51; Resp 16bpm; 67.13 kg; Height 5 ft. 4 in.; BMI: 25.4; Pain 10; iw iw 18 18:43 Allergies: Codeine; nausea; iw iw 18 18:43 Allergies: Sulfa (Sulfonamide Antibiotics); iw iw 19:58 19:56 Reassessment: Patient states that she needs something different for pain. aj1 Instructed patient that I would notify the PA, but the medications that had been administered had not had enough time to start working yet. Patient states that it didn't matter because those pain medications would not work for her. Notified JOYA Griffin. No orders received at this time aj1 21:20 21:19 fentaNYL (PF) 25 mcg IVP in left antecubital aj1 aj1
--- NOTE | 2021-06-15 22:06 | EDPHYS ---
Physician Documentation [facility] Name: Tri Torrez Age: 70 yrs Sex: Female : 1950 Arrival Date: 06/15/2021 Time: 18:20 Bed 9 Private MD: ED Physician Maik Monae HPI: 06/15 19:15 This 70 yrs old Female presents to ER via Wheelchair with complaints of Knee Pain. cp 19:15 The patient presents with pain, that is acute. cp 19:15 The complaints affect the left knee. Context: resulted from an unknown cause, must have cp assistance. Onset: The symptoms/episode began/occurred today. Modifying factors: the symptoms are aggravated by movement, bending knee. Associated signs and symptoms: Pertinent positives: swelling, Pertinent negatives calf tenderness, fever, numbness, rash, warmth. Historical: - Allergies: 18:43 No Known Allergies; iw - PMHx: 18:43 born with 1 kidney; COPD; Hypothyroidism; Osteoporosis; Raynaud's Disease; Rheumatoid iw Arthritis; Scleroderma; - Immunization history:: Client reports receiving the 2nd dose of the Covid vaccine. - Social history:: Smoking status: Patient/guardian denies using tobacco. ROS: 19:20 MS/extremity: Positive for pain, tenderness, of the left knee. cp 19:20 Constitutional: Negative for body aches, chills, fever. cp Exam: 19:30 Constitutional: The patient appears in no acute distress, alert, awake, non-toxic, well cp developed, well nourished. 19:30 Head/Face: Normocephalic, atraumatic. cp 19:30 Eyes: Periorbital structures: appear normal, Conjunctiva: normal, no exudate, no injection, Sclera: no appreciated abnormality, Lids and lashes: appear normal, bilaterally. 19:30 ENT: External ear(s): are unremarkable, Nose: is normal, Mouth: Lips: moist, Oral mucosa: moist, Posterior pharynx: Airway: no evidence of obstruction, patent. 19:30 Chest/axilla: Inspection: normal. 19:30 Cardiovascular: Rate: normal. 19:30 Respiratory: the patient does not display signs of respiratory distress, Respirations: normal, no use of accessory muscles, no retractions. 19:30 Abdomen/GI: Inspection: abdomen appears normal, Palpation: abdomen is soft and non-tender, in all quadrants. 19:30 Musculoskeletal/extremity: Extremities: grossly normal except: noted in the left knee: pain, mild prepatellar swelling and marked tenderness to palpation, ROM: limited passive range of motion due to pain, in the left knee, Perfusion: the extremity is normally perfused throughout, Sensation intact. overlying skin with no erythema, dry. Vital Signs: 18:42 BP 102 / 51; Pulse 98; Resp 16; Temp 98.2; Pulse Ox 90% on R/A; Weight 67.13 kg; Height iw 5 ft. 4 in. (162.56 cm); Pain 10/10; 22:10 BP 134 / 67; Pulse 66; Resp 18; Pulse Ox 94% on R/A; mw2 18:42 Body Mass Index 25.40 (67.13 kg, 162.56 cm) iw MDM: 19:02 Patient medically screened. cp 21:00 Differential diagnosis: tendonitis, low suspicion for septic joint, cellulitis, cp bursitis. 22:05 Data reviewed: vital signs, nurses notes, radiologic studies, plain films, ultrasound. cp 22:05 Test interpretation: by ED physician or midlevel provider: xrays of left knee negative cp for fracture. Counseling: I had a detailed discussion with the patient and/or guardian regarding: the historical points, exam findings, and any diagnostic results supporting the discharge/admit diagnosis, radiology results, the need for outpatient follow up, for definitive care, a orthopedic surgeon, to return to the emergency department if symptoms worsen or persist or if there are any questions or concerns that arise at home. Response to treatment: the patient's symptoms have markedly improved after treatment, Pain improved. Will discharge to home for continued monitoring. 06/15 19:09 Order name: XRAY Knee LEFT 3 view; Complete Time: 19:59 cp 06/15 19:59 Interpretation: Report reviewed. cp 06/15 19:10 Order name: US Extremity Venous Unilateral Ltd; Complete Time: 19:59 cp 06/15 20:32 Order name: IV; Complete Time: 20:45 cp Administered Medications: 19:38 Drug: Ibuprofen 800 mg Route: PO; aj1 19:38 Drug: Tylenol 650 mg Route: PO; aj1 19:38 Drug: UltRAM (traMADol) 50 mg Route: PO; aj1 20:16 Drug: fentaNYL (PF) 25 mcg Route: IM; Site: left deltoid; aj1 21:09 Drug: NS 0.9% 500 ml Route: IV; Rate: 500 ml/hr; Site: left antecubital; aj1 21:09 Drug: fentaNYL (PF) 25 mcg Route: IVP; Site: left antecubital; aj1 22:03 Drug: Ketorolac 15 mg Route: IVP; Site: left antecubital; aj1 22:04 Drug: morphine 2 mg Route: IVP; Site: left antecubital; aj Disposition: 22:15 Chart complete. cp Disposition Summary: 06/15/21 22:05 Discharge Ordered Location: Home cp Problem: new cp Symptoms: have improved cp Condition: Stable cp Diagnosis - Pain in left knee cp Followup: cp - With: Gustavo Sharma MD - When: 2 - 3 days - Reason: left knee pain Discharge Instructions: - Discharge Summary Sheet cp - Elastic Bandage and RICE Therapy cp - Acute Knee Pain, Adult cp Forms: - Medication Reconciliation Form cp - Thank You Letter cp - Antibiotic Education cp - Prescription Opioid Use cp Prescriptions: - Mobic 7.5 mg Oral Tablet - take 1 tablet by ORAL route once daily take with food; 20 tablet; Refills: 0, cp Product Selection Permitted - Tramadol 50 mg Oral Tablet - take 1 tablet by ORAL route every 8 hours as needed; 12 tablet; Refills: 0, cp Product Selection Permitted Addendum: 06/17/2021 06:52 Co-signature as Attending Physician, Maik Monae MD. m Signatures: Dispatcher [employer] Natacha Menjivar RN RN aj1 Cherelle Michaels RN RN iw Agapito Talbert PA PA cp Maik Monae MD MD [id number] Corrections: (The following items were deleted from the chart) 06/15 18:44 18:43 Allergies: Codeine; nausea; [facility] 18:44 18:43 Allergies: Sulfa (Sulfonamide Antibiotics); [facility]
[2021-06-15 22:34] VITALS: TEMP 98.2
[2021-06-15 22:36] VITALS: BP 134/67; O2SAT 94
== END 2021-06-15 22:23 | disposition home or self-care (01) ==
LOC: ER 18:18
DX: M25.562 Pain in left knee (principal)
CPT/HCPCS: 73562; 93971; 96375; 96372; 96374; 99284; J3010 ×2; J2270

== ENCOUNTER 2021-11-02 10:15 | Day surgery (SDC) | payer OTHER ==
[2021-11-02 11:09] VITALS: BP 148/66; TEMP 97.2; O2SAT 96; BMI 19.0
[2021-11-02 11:24] LABS: Albumin 3.1 g/dL (3.4-5.0); Bilirubin Total 0.3 mg/dL (0.2-1.0)
[2021-11-02] MEDS ORDERED: NA CHLORIDE 0.9% IV ONE (12:00)
[2021-11-02] MEDS ORDERED: PAMIDRONATE IV ONE (12:00)
[2021-11-02] MEDS ORDERED: PAMIDRONATE 90 MG in NA CHLORIDE 0.9% 250 ML IV ONE (12:00)
== END 2021-11-02 14:35 | disposition home or self-care (01) ==
LOC: DS 10:15
PROVIDERS: ATTEND Internal Medicine Nephrology
DX: E21.1 Secondary hyperparathyroidism, not elsewhere classified (principal); E83.52 Hypercalcemia
CPT/HCPCS: 36415; 80053; 96365; 96366; J2430; J7050

== ENCOUNTER 2022-08-06 11:08 | Emergency (ER) | payer OTHER ==
--- OUTSIDE RECORDS SUMMARY | 2022-08-06 11:11 | XMS REPORT | Continuity of Care Document ---
:1950 Author Organization [facility] t Address [address] [place] [address] Care Team Providers Name Role Phone Hernesto Oliver Primary Care Physician Unavailable MARLIN ALCANTARA Attending Clinician Unavailable ERIC MAYEN Attending Clinician Unavailable ELIE VELIZ Attending Clinician Unavailable Doctor Unassigned, [place] Attending Clinician Unavailable Tia-Maria Ineso_A_AH Attending Clinician Unavailable MARLIN ALCANTARA Admitting Clinician Unavailable CARROLL GILBERT Admitting Clinician Unavailable Tia-Mbayo_A_AH Admitting Clinician Unavailable Payers Payer Name Policy Type Policy Number Effective Date Expiration Date S tricia AETNA MEDICARE HMO [id number] 2020 POS 00:00:00 [employer]AREN [place]INT [id number] 2019 [place] 00:00:00 (MEDICARE REPLACEMENT/ADVANT AGE - HMO) Problems Condition Condition Condition Status Onset Resolution Last Treating Co mments Source Name Details Category Date Date Treatment Clinician Date Renal Renal Disease Active 2020-[address] [facility] atrophy [facility] 2[facility]17 [facility] 00 [place] Hydronephr Hydronephr Disease Active 2020-[address] osis with osis with 2-17 [facility] renal renal 00:00: Medical calculous calculous 00 Cent er obstructio obstructio n n Right Right Disease Active 2020-[address] [facility] renal renal 2-17 [facility] stone stone 00:00: Medical 00 [place] Acute Acute Disease Active [facility] cystitis cystitis 04-26 [facility] without without 00:00: Medical hematuria hematuria 00 Cent er Stage 3b Stage 3b Disease [facility] chronic [facility] kidney kidney 00:00: Medical disease disease 00 Center Rheumatoid Rheumatoid Disease Active [facility] arteritis arteritis 04-26 [facility] Acquired Acquired Disease [facility] hypothyroi hypothyroi 04-26 [facility] dism dism 00:00: Medical 00 [place] Nephrolith Nephrolith Disease Active [facility] iasis iasis 04-25 [facility] 00:[facility]: [facility] 00 Center Allergies, Adverse Reactions, Alerts Allergy Allergy Status Severity Reaction(s) Onset Inactive Treating Comm ents Source Name Type Date Date Clinician SULFA Allergy Active N\T\V [facility] (SULFONA 04-26 [facility] MIDE 00:00: Medical ANTIBIOT 00 Center ICS) NO KNOWN Allergy Active [facility] Social History Social Habit Start Date Stop Date Quantity Comments Source Alcohol intake 2021-07-16 2021-07-16 Ex-drinker MERRY Galvez Bouchra es 00:00:00 00:00:00 (finding) [facility] Tobacco use and 2021-04-26 2021-04-[address] [facility] [address] Anita kes exposure 00:00:00 00:00:00 [facility] Sex Assigned At [birth year] MERRY Galvez Anita kes 00:00:00 00:00:00 [facility] Smoking Status Start Date Stop Date Source Former smoker 2021-04-26 00:00:00 2021-04-26 00:00:00 [facility] Medications Ordered Filled Start Stop Current Ordering Indication Dosage Frequency Signature Comments Components Source Medication Medication Date Date Medication? Clinician (SIG) Name Name cefUROXime 2020-07 Yes 250mg Q.5D Take [address] (CEFTIN) 2-19 mg by [facility] 250 MG 10:44: mouth 2 Medical tablet 00 (two) Center times daily. sulfaSALAzi 2020-07 Yes 1000mg Q.5D Take 1,[address] [facility] ne 2-18 mg by [facility] (AZULFIDINE 10:44: mouth 2 Med ical ) 500 mg 18 (two) Center tablet times daily. pantoprazol 2020-07 Yes 40mg QD Take [address] [facility] e 2-18 by mouth [facility] (PROTONIX) 10:44: daily. Medic al 40 MG 18 Center tablet levothyroxi 2020-07 Yes 37.5ug Take 37.[address] [facility] ne 2-18 mcg by [facility] (SYNTHROID, 10:44: mouth Medic al LEVOTHROID) 18 Every Center 25 MCG morning on tablet an empty stomach. apixaban 2020-07 Yes 2.5mg Q.5D Take 2.[address] [facility] (Eliquis) 2-18 mg by [facility] 2.5 mg Tab 10:44: mouth 2 Medi kylee tablet 18 (two) Center times daily. predniSONE 2020-07 Yes 20mg QD Take [address] (DELTASONE) 2-18 by mouth [facility] 20 MG 10:44: daily. Medical tablet 18 Center ferrous 2020-07 Yes 325mg Take 325 [facility] sulfate 2-18 mg by [facility] (iron) 325 10:44: mouth Medica l (65 FE) MG [address] tablet breakfast. budesonide- 2020-07 Yes 2{puff} Q.5D Inhale [address] formoteroL 2-18 puffs by [facility] (SYMBICORT) 10:44: mouth via M edical 160-4.5 18 inhaler 2 Center mcg/actuati (two) on inhaler times daily. tamsulosin 2020-07- No .4mg QD Take [address] (FLOMAX) 2-18 -17 capsule [facility] 0.4 mg Cap 00:00: 23:59 (0.4 mg Med ical 24 hr 00 :00 total) by Center capsule mouth daily for 30 days. Vital Signs Vital Name Observation Time Observation Value Comments Source HEIGHT 2021-07-13 06:58:00 162.6 cm WEIGHT 2021-07-13 06:58:00 60.8 kg HEIGHT 2021-07-12 16:28:00 162.6 cm WEIGHT 2021-07-12 16:28:00 62.596 kg HEIGHT 2021-07-13 06:58:00 162.6 cm WEIGHT 2021-07-13 06:58:00 60.8 kg HEIGHT 2021-07-12 16:28:00 162.6 cm WEIGHT 2021-07-12 16:28:00 62.596 kg WEIGHT 2021-04-30 12:00:00 59.149 kg HEIGHT 2021-04-30 12:00:00 162.6 cm WEIGHT 2021-04-30 12:00:00 59.149 kg HEIGHT 2021-04-30 12:00:00 162.6 cm Procedures This patient has no known procedures. Plan of Care Planned Activity Planned Date Details Comments Source Future Scheduled 2022-07-[address] [facility] Test 00:00:00 (12+) [code = Medical Center DEPRESSION SCREENING (12+)] Future Scheduled 2022-07-28 FALLS RISK SCREENING [facility] Test 00:00:00 [code = FALLS RISK Medical C enter SCREENING] Future Scheduled 2022-07-[address] [facility] Test 00:00:00 Counseling and Medical Cente r Screening (12+) [code = Tobacco Cessation Counseling and Screening (12+)] Future Scheduled 2022-03-28 INFLUENZA VACCINE (#1) [facility] 00:00:00 [code = INFLUENZA Medical Ce nter VACCINE (#1)] Future Scheduled 2021-08-[address] [facility] Test 00:00:00 WELLNESS (YEAR 2 or Medical Center FIRST YEAR if no IPPE) [code = MEDICARE ANNUAL WELLNESS (YEAR 2 or FIRST YEAR if no IPPE)] Future Scheduled 2021-02-27 COVID-19 VACCINE (3 - [facility] 00:00:00 Booster for Pfizer Medical C enter series) [code = COVID-19 VACCINE (3 - Booster for Pfizer series)] Future Scheduled 2014 PNEUMOCOCCAL 65+ YRS ([address] [facility] Test 00:00:00 - PCV) [code = Medical Cente r PNEUMOCOCCAL 65+ YRS (1 - PCV)] Future Scheduled 1999-10-06 SHINGLES VACCINES ([address] [facility] Test 00:00:00 2) [code = SHINGLES Medical Center VACCINES (1 of 2)] Future Scheduled 1968 DTAP/TDAP/TD VACCINES [facility] 00:00:00 (1 - Tdap) [code = Medical C enter DTAP/TDAP/TD VACCINES (1 - Tdap)] Future Scheduled 1967-10-06 HEPATITIS C SCREENING [facility] 00:00:00 [code = HEPATITIS C Medical Center SCREENING] Future Scheduled 1949 Screening for malignant [facility] Test 00:00:00 neoplasm of breast Medical C enter (procedure) [code = 484435442] Future Scheduled 1949 CT Colonography (combo) [facility] Test 00:00:00 [code = CT Colonography [facility] (combo)] Future Scheduled 1949 Screening for malignant [facility] Test 00:00:00 neoplasm of colon Medical Ce nter (procedure) [code = 344437237] Future Scheduled 1949 Screening for malignant [facility] Test 00:00:00 neoplasm of colon Medical Ce nter (procedure) [code = 916127405] Future Scheduled 1950 DXA SCAN [code = DXA [facility] Test 00:00:00 SCAN] [facility] Future Scheduled 1949 Screening for malignant [facility] Test 00:00:00 neoplasm of colon Medical Ce nter (procedure) [code = 654211721] Future Scheduled 1949 Screening for malignant [facility] Test 00:00:00 neoplasm of colon Medical Ce nter (procedure) [code = 501287118] Future Scheduled 1950 Sigmoidoscopy [code = [facility] 00:00:00 Sigmoidoscopy] Medical Cente r Encounters Start End Encounter Admission Attending Care Care Encounter Source Date/Time Date/Time Type Type Clinicians Facility Department ID 2021-07-13 2021-07-14 [facility] [id number] [facility] 06:11:00 10:44:00 MARLIN 2021-07-12 2021-07-12 Outpatient [facility] [id number] [facility] 14:46:49 23:59:00 2021-04-25 2021-05-01 Inpatient ER YUNGA [facility] Surgery [id number] [facility] 21:06:00 18:37:00 ERIC 2020-06-19 2020-06-19 Orders Doctor LÓPEZ [id number] 00:00:00 00:00:00 Only Unassigned, BIA 350.1.13.10 [place] [facility] 4.2.7.2.686 [id number] 2019-09-15 2019-09-15 Outpatient Tia-Margot [facility] 79[facility]202 [facility] 07:12:00 07:12:00 _A_ [id number] [facility] Pract[facility] e Results Test Description Test Time Test Comments Results Result Comments Source HEMOGLOBIN AND HEMATOCRIT 2021-07-14 07:15:13 Test Item Value Reference Range Interpretation Comme nts HEMOGLOBIN (BEAKER) (test code = 410) 8.7 GM/DL 11.2-15.7 L HEMATOCRIT (BEAKER) (test code = 411) 27.7 % 34.1-44.9 L Last Code Striper ID - [id number] CULTURE + SMEAR (NON-SPUTUM)2021-06-14 12:08:57 Test Item Value Reference Range Interpretation Comments CULTURE (BEAKER) (test No acid-fast bacilli code = 1095) isolated in 42 days AFB SMEAR (BEAKER) No acid fast bacilli (test code = 994) seen FUNGUS CULTURE + [id number] 01:15:05 Test Item Value Reference Range Interpretation Comments CULTURE (BEAKER) (test No fungus isolated in code = 1095) 28 days FUNGUS SMEAR (BEAKER) No fungi seen (test code = 1406) BLOOD [id number] 20:01:08 Test Item Value Reference Range Interpretation Comments CULTURE (BEAKER) (test No growth in 5 days code = 1095) The specimen volume collected for this blood culture was below the optimum (10 mL per bottle or 20 mL total). Use of lower volumes may adversely affect recovery and/or detection times of some organisms.SURGICALLY OBTAINED CULTURE + GRAM [id number] 12:12:16 Test Item Value Reference Interpretation Comments [...] No organisms seen (BEAKER) (test code = 493099) BASIC METABOLIC [id number] 06:57:48 Test Item Value Reference Range Interpretation [...] S NOT APPLICABLE FOR DIALYSIS PATIEN TS. Last Code Striper ID - JOANA FCBC W/PLT COUNT & AUTO [id number] 06:08:09 Test Item Value Reference Range Interpretation [...] (BEAKER) (test code = 2801) BASIC METABOLIC [id number] 02:59:06 Test Item Value Reference Range Interpretation [...] S NOT APPLICABLE FOR DIALYSIS PATIEN TS. Last Code Striper ID - DBCBC W/PLT COUNT & AUTO [id number] 02:30:27 Test Item Value Reference Range Interpretation [...] PERCENT (BEAKER) (test code = 2801) ANAEROBIC [id number] 11:36:21 Test Item Value Reference Range Interpretation Comments CULTURE (BEAKER) (test No anaerobes isolated code = 1095) CBC W/PLT COUNT & AUTO [id number] 07:01:08 Test Item Value Reference Range Interpretation [...] (BEAKER) (test code = 2801) BASIC METABOLIC [id number] 06:54:01 Test Item Value Reference Range Interpretation [...] S NOT APPLICABLE FOR DIALYSIS PATIEN TS. Last Code Striper ID Suman LuiVITAMIN B12 AND [id number] 15:03:06 Test Item Value Reference Range Interpretation Comments VITAMIN B12 (BEAKER) 347 pg/mL 213-816 (test code = 774) FOLATE (BEAKER) 1.70 ng/mL See_Comment L [Automated message] (test code = 362) The system which generated this result transmitted ref erence range: >=7.00. The reference range was not used to interpr et this result as normal/abnormal . Last Code Striper ID Suman SYKES [id number] 15:03:05 Test Item Value Reference Range Interpretation Comments FERRITIN (BEAKER) (test code = 351.19 ng/mL 5.00-275.00 H 361) Last Code Striper ID - MONY LOPEZ, TIBC, % SAT. (WITHOUT FERRITIN)2021-04-28 14:27:22 Test Item Value Reference Range Interpretation Comments IRON (BEAKER) (test code = 547) 14.0 ug/dL 40.0-160.0 L TOTAL IRON BINDING CAPACITY 149 ug/dL 250-450 L (BEAKER) (test code = 769) IRON % SATURATION (2) (BEAKER) 9 % 20-55 L (test code = 2590) Last Code Striper ID Suman SYKES GCBC W/PLT COUNT & AUTO [id number] 07:58:36 Test Item Value Reference Range Interpretation [...] (BEAKER) (test code = 2801) BASIC METABOLIC [id number] 07:02:31 Test Item Value Reference Range Interpretation [...] S NOT APPLICABLE FOR DIALYSIS PATIEN TS. Last Code Striper ID - DBCT, [id number] 19:04:00s/p right ureteral stent placement 04/26Unlisted Reason for Exam - Click Yes and Enter Reason Below->YesUnlisted Reason for Exam->intra abdominal bleedingWill this procedure require oral contrast?->NoMERRY [facility] : 1950 Sex: FFINAL REPORT ABDOMINAL AND PELVIS CT DATED 04/27/2021 CLINICAL INFORMATION: Hypotensionintra abdominal bleeding TECHNIQUE: Axial images of the abdomen and pelvis were obtained from diaphragm to the pubic symphysis without GI or intravenous contrast. This exam was performed according to our departmental dose-optimization program, which includes automated exposure control, adjustment of the mA and/or kV according to patient size and/or use of interactive reconstruction technique. COMMENT: There is trace bilateral pleural effusion. Interstitial pulmonary disease is seen in both lung bases with honeycombing formation suggestive of fibrotic changes. Liver and spleen are normal in size without focal abnormality. Gallbladder is distended. No gallstone or biliary dilatation is noted. Pancreas and adrenals are unremarkable. Left kidney is atrophic. There is compensatory enlargement of the right kidney. A double-J ureter stent is seen on the right. No hydronephrosis or hydroureter is seen. Several cysts are seen in the right kidney with largest measuring 1.9 cm. Diverticular disease is seen in the large bowel without diverticulitis. The small bowel and appendix are normal in caliber. Vascular calcification is seen in the abdominal aorta and bilateral iliac arteries. Uterus is atrophic. The urinary bladder is minimally distended. Normal in caliber. No mass, adenopathy or ascites is present. IMPRESSION: 1. Trace bilateral pleural effusion.2. Findings suggestive of pulmonary fibrosis.3. Atrophic left kidney with compensatory enlargement of the right kidney.3. Diverticulosis without div erticulitis.4. No hematoma or hemorrhage in the abdomen or pelvis. Signed: Russell Rangel MDReport Verified Date/Time: 04/27/2021 19:04:40 Reading Location: [address] Body Reading Room [id number] 16:57:43 Test Item Value Reference Range Interpretation Comments CORTISOL, TOTAL (BEAKER) (test code 6.2 ug/dL 3.7-19.4 = 2755) Last Code Striper ID - DBCOMPREHENSIVE METABOLIC [id number] 16:55:00 Test Item Value Reference Range Interpretation [...] S NOT APPLICABLE FOR DIALYSIS PATIEN TS. Last Code Striper ID - DB(CELLAVISION MANUAL DIFF)2021-04-27 16:49:11 Test [...] CONCENTRATION Decreased (CELLAVISION)(BEAKER) (test code = 3438) Last Code Striper ID - Erin Dickerson comments: Slide comments:C-REACTIVE PROTEIN 2021-04-27 16:37:03 Test Item Value Reference Range Interpretation Comments C-REACTIVE PROTEIN (BEAKER) (test 16.36 mg/dL 0.00-0.50 H code = 676) Last Code Striper ID - DBLACTIC ACID, [id number] 16:32:57 Test Item Value Reference Range Interpretation Comments LACTATE BLOOD VENOUS (2) (BEAKER) 1.25 mmol/L 0.50-2.20 (test code = 2872) Last Code Striper ID - DBCBC W/PLT COUNT & AUTO [id number] 16:22:05 Test Item Value Reference Range Interpretation [...] = 413) CBC W/PLT COUNT & AUTO [id number] 12:28:55 Test Item Value Reference Range Interpretation [...] (BEAKER) (test code = 2801) BLOOD GAS, [id number] 11:55:59 Test Item Value Reference Range Interpretation [...] (BEAKER) (test code = 1819) 32.0 SPIN/CONCENTRATION [id number] 09:05:01 Test Item Value Reference Range Interpretation Comments CONCENTRATION CHARGED (BEAKER) (test Done code = 2657) RAD, CHEST, 1 VIEW, NON [id number] 08:55:00Reason for exam:->low n7Aexurq this be performed at the bedside?->Yes [facility] 1950 Sex: FFINAL REPORT INDICATION: low o2 COMPARISON: None TECHNIQUE: Single frontal view ofthe chest. FINDINGS: Lungs and pleura: Bilateral airspace opacities concerning for multifocal pneumonia versus multifocal edema. No effusion.Heart and mediastinum: Normal heart size. Unremarkable mediastinal contours.Osseous structures: No acute abnormality.Other: None. IMPRESSION: Bilateral airspace opacities concerning for multifocal pneumonia versus multifocal edema. Signed: Berenice Combs Verified Date/Time: 04/27/2021 08:55:25 Reading Location: [facility] Radiology Reading Room Elec tronically signed by: BERENICE COMBS MD on 04/27/2021 08:55 AMBASIC METABOLIC [id number] 06:45:49 Test Item Value Reference Range Interpretation [...] S NOT APPLICABLE FOR DIALYSIS PATIEN TS. Last Code Striper ID - PIAYA EPATIC FUNCTION [id number] 06:34:17 Test Item Value Reference Range Interpretation [...] (test code = 6 U/L 6-55 347) Last Code Striper GEORGE MARTINSEMERALD [id number] 06:34:16 Test Item Value Reference Range Interpretation Comments MAGNESIUM (BEAKER) (test code = 2.1 mg/dL 1.6-2.6 627) Last Code Striper GEORGE DAVIS LCBC W/PLT COUNT & AUTO [id number] 05:22:25 Test Item Value Reference Range Interpretation [...] 2801) FL, FLUORO, NON-SPECIFIC, UP TO 1 [id number] 09:48:00Reason for exam:- >CYSTOSCOPY LEFT URETERAL STENT PLACEMENT [facility] : 1950 Sex: FFluoroscopic unit utilized for a procedure performed in the OR. No interpretation was requested. Refer to the operative report for findings. Refer to PACS for patient radiation dose information.BASIC METABOLIC [id number] 01:44:56 Test Item Value Reference Range Interpretation [...] S NOT APPLICABLE FOR DIALYSIS PATIEN TS. Last Code Striper ID - RYAN [id number] 01:41:38 Test Item Value Reference Range Interpretation Comments PHOSPHORUS (BEAKER) 2.9 mg/dL 2.3-4.7 Specimen slightly (test code = 604) hemolyzed Last Code Striper ID - RYAN [id number] 01:41:37 Test Item Value Reference Range Interpretation Comments MAGNESIUM (BEAKER) 1.5 mg/dL 1.6-2.6 L Specimen slightly (test code = 627) hemolyzed Last Code Striper ID - RYAN [id number] 01:25:13 Test Item Value Reference Range Interpretation Comments PARTIAL THROMBOPLASTIN TIME 34.8 seconds 22.5-36.0 (BEAKER) (test code = 760) PROTHROMBIN TIME/[id number] 01:24:29 Test Item Value Reference Range Interpretation Comments PROTIME (BEAKER) 14.5 seconds 11.9-14.2 H (test code = 759) INR (BEAKER) (test 1.15 See_Comment [Automat ed message] code = 370) The system [employer] generated this result transmitted ref erence range: <=5.90. The reference range was not used to int erpret this result as normal/abnormal . RECOMMENDED COUMADIN/WARFARIN INR THERAPY RANGESSTANDARD DOSE: 2.0 - 3.0 Includes: PROPHYLAXIS for venous thrombosis, systemic embolization; TREATMENT for venous thrombosis [...] 0-0 (BEAKER) (test code = 413) SARS-COV2/RT-PCR ([facility])2021-04-26 00:24:17 Test Item Value Reference Range Interpretation Comments SARS-COV2/RT-PCR Negative Negative The SARS-Co V-2 target (test code = nucleic acids a re not [id number]) detected in thi s specimen. Negative result [...] This SARS CoV-2 test is a rapid, real-time RT-PC R test intended for th e qualitative detection of nu cleic acid from SARS-CoV-2 in a nasopharyngeal swab specimen collected from individuals suspected of CO VID-19 by their [facility] provider. This test has been authorized by FDA under an EUA for use by authorized laboratories. This test is only authorized for the duration of the declaration that circumstances exist justifying the authorization of emergency use of in vitro diagnostic tests for detection and/or diagnosis of COVID-19 under Section 564(b)(1) of the Federal Food, Drug and Cosmetic Act, 21 U.S.C. 360bbb-3(b)(1), unless the authorization is terminated or revoked sooner. Fact Sheet for Healthcare Providers: https://www.[employer].co m/Documents/Xpert%20Xpress%20SARS%20CoV-2/Fact%20Sheets/3023802%45IZUO-AAC-5%20 HEALTHCARE%20PROVIDERS%20FACT%20SHEET.pdf Fact Sheet for Healthcare Patients: https://www.[employer]/Documents/Xpert%20Xp ress%20SARS%20CoV-2/Fact%20Sheets/3023801%65ICFO-QKS-4%20PATIENT%20FACT%20SHEET .pdf
[2022-08-06 11:50] LABS: Absolute Lymphocytes (CBC) 1.1 K/uL (0.7-4.9); Hematocrit 38.4 % (36.0-45.0); Lymphocytes % 9.8 % (15.3-44.8); MCV 87.2 fL (80-100); MPV 8.2 fL (7.6-11.3)
[2022-08-06 12:24] LABS: Urine Blood Negative (Negative); Urine Glucose Negative (Negative); Urine Protein Trace (Negative); Urine pH 5.5 (5.0-7.0)
[2022-08-06] MEDS ORDERED: MORPHINE 2 MG/ML SYR ONE ×2 (12:27→14:07)
--- NOTE | 2022-08-06 12:37 | RAD REPORT ---
EXAM DESCRIPTION: Sumayat Single View08/06/2022 12:28 pm CLINICAL HISTORY: Chest pain COMPARISON: 2020 FINDINGS: Progression in diffuse bilateral pulmonary opacities. Heart is mildly to moderately enlarged. Calcified breast implants The heart is normal size IMPRESSION: Progression in diffuse bilateral pulmonary opacities. This probably represents a combina tion of COPD and pulmonary fibrosis. There could also be a superimposed acute pneumonitis or intersti tial pulmonary edema
[2022-08-06 12:40] LABS: Urine Bacteria None Seen /HPF (<20); Urine Mucus Slight /HPF (None Seen); Urine RBC <5 /HPF (None Seen)
--- NOTE | 2022-08-06 13:42 | EDPHYS ---
Physician Documentation [facility] Name: Tri Torrez Age: 71 yrs Sex: Female : 1950 Arrival Date: 08/06/2022 Time: 11:10 Bed 8 Private MD: ED Physician Elaine Knox HPI: 08/06 13:14 This 71 yrs old Female presents to ER via EMS with complaints of Dizziness, Pain All sp3 Over. 13:14 72-year-old female with history of scleroderma, Raynaud's disease, rheumatoid sp3 arthritis, osteoporosis presents with her by EMS for "pain all over". After further discussion with patient and family, the main reason she was brought in was that she is no longer wanting any care or does not want to take any of her medications. She also does not want anybody bathing her or changing her soiled underclothing. is frustrated and wants to place her in snf but she refuses. Due to social situation, he activated EMS who brought her here. There is no acute process to her pain or any other symptoms that she is having. Review of systems is somewhat limited secondary to patient answering yes to multiple things however she is alert and oriented but does not give reasonable reasons for refusing her care. There is also an insurance issue and her PCP got changed to Dr. Doyle whom she has not seen. is in the process of trying to arrange an appointment but he states that she refuses to get into the car. Get social work to come see patient in the ED as well.. Historical: - Allergies: 11:13 No Known Allergies; ll1 - PMHx: 11:13 Scleroderma; Raynaud's Disease; Rheumatoid Arthritis; Osteoporosis; Hypothyroidism; ll1 COPD; born with 1 kidney; 11:15 Hypothyroidism; ESRD; ll1 - PSHx: 11:13 hysterectomy; ll1 - Immunization history:: Client reports receiving the 2nd dose of the Covid vaccine. - Social history:: Smoking status: Patient reports the use of cigarette tobacco products, denies chronic smoking, but will smoke occasionally. ROS: 13:18 Unable to obtain ROS due to patient being uncooperative. sp3 Exam: 13:18 Constitutional: This is a well developed, well nourished patient who is awake, alert, sp3 and in no acute distress. Head/Face: Normocephalic, atraumatic. Eyes: Pupils equal round and reactive to light, extra-ocular motions intact. Lids and lashes normal. Conjunctiva and sclera are non-icteric and not injected. Cornea within normal limits. Periorbital areas with no swelling, redness, or edema. ENT: Nares patent. No nasal discharge, no septal abnormalities noted. External auditory canals are clear. Oropharynx with no redness, swelling, or masses, exudates, or evidence of obstruction, uvula midline. Mucous membranes moist. Neck: Trachea midline, no thyromegaly or masses palpated, and no cervical lymphadenopathy. Supple, full range of motion without nuchal rigidity, or vertebral point tenderness. No Meningismus. Chest/axilla: Normal chest wall appearance and motion. Nontender with no deformity. No lesions are appreciated. Cardiovascular: Regular rate and rhythm with a normal S1 and S2. No gallops, murmurs, or rubs. Normal PMI, no JVD. No pulse deficits. Respiratory: Lungs have equal breath sounds bilaterally, clear to auscultation and percussion. No rales, rhonchi or wheezes noted. No increased work of breathing, no retractions or nasal flaring. Neuro: Awake and alert, GCS 15, oriented to person, place, time, and situation. Cranial nerves II-XII grossly intact. Motor strength 5/5 in all extremities. Sensory grossly intact. Cerebellar exam normal. Normal gait. 13:18 Skin: No significant rashes or bleeding seen. Skin is tight in some areas over the joints but patient is able to move all fingers. There is a small ulcer not high and grade is of a thumbnail on her lower posterior sacral area. There are no signs of infection. . Vital Signs: 11:10 BP 138 / 76; Pulse 87; Resp 17; Temp 97.7; Weight 45.36 kg; Height 5 ft. 4 in. (162.56 ll1 cm); Pain 10/10; 14:07 BP 128 / 80; Pulse 78; Resp 18; Temp 98.0; Pulse Ox 94% on R/A; ph 11:10 Body Mass Index 17.16 (45.36 kg, 162.56 cm) ll1 MDM: 11:18 Patient medically screened. sp3 13:20 Data reviewed: vital signs, nurses notes. sp3 13:20 ED course: viscose department worker is at the bedside discussing options with the patient and sp3 family to assist him further in their long-term needs. There is no acute emergency at this time and patient will be safely discharged home. We will treat the bacteria found on her urine analysis with outpatient medicine. Remainder of her laboratory values are normal with troponin pending. EKG demonstrates no acute abnormality. Pending that final data point, we will discharge patient safely home in the custody of her .. 13:34 ED course: After social service agency director conversation, patient elects to be hospice care going sp3 forward. She is refusing all treatment and food. Out of hospital DNR was executed. We will discharge patient home at this time after another 2 mg of morphine IV with home hospice coordinated.. 13:37 ED course: Is a recollect secondary to hemolysis and patient is declining. She also sp3 refuses treatment for her UTI. Given that she is going home on hospice, we will honor her wishes and discharge her.. 08/06 11:19 Order name: CBC with Diff; Complete Time: 13:19 [facility] 08/06 11:19 Order name: UA MICROSCOPIC; Complete Time: 13:19 [facility] 08/06 11:19 Order name: XRAY Chest (1 view); Complete Time: 13:19 [facility] 08/06 11:19 Order name: EKG; Complete Time: 11:19 [facility] 08/06 11:19 Order name: Cardiac monitoring; Complete Time: 12:57 [facility] 08/06 12:24 Order name: Urine Dipstick-Ancillary; Complete Time: 13:19 [facility] 08/06 12:49 Order name: Urine Culture [facility] 08/06 14:34 Order name: Social Service Consult [facility] 08/06 11:19 Order name: EKG - Nurse/Tech; Complete Time: 12:38 3 08/06 11:19 Order name: IV Saline Lock; Complete Time: 11:37 3 08/06 11:19 Order name: Labs collected and sent; Complete Time: 11:37 3 08/06 11:19 Order name: O2 Sat Monitoring; Complete Time: 11:37 3 08/06 11:19 Order name: Urine Dipstick-Ancillary (obtain specimen); Complete Time: 12:16 [facility] 08/06 11:56 Order name: Labs - recollect needed: recollect c7; Complete Time: 12:38 bd 08/06 13:31 Order name: Misc. Order: [employer] consult; Complete Time: 13:51 sp3 Administered Medications: 12:45 Drug: morphine 2 mg Route: IVP; Infused Over: 4 mins; Site: left forearm; ph 13:15 Follow up: Response: No adverse reaction; RASS: Alert and Calm (0) ph 14:07 Drug: morphine 2 mg Route: IVP; Infused Over: 4 mins; Site: right forearm; ph 14:44 Follow up: Response: No adverse reaction; RASS: Alert and Calm (0) ph Disposition Summary: 08/06/22 13:42 Discharge Ordered Location: Home sp3 Condition: Stable sp3 Diagnosis - Body pain, Hospice care sp3 Followup: sp3 - With: Private Physician - When: Upon discharge from the Emergency Department - Reason: Continuance of care Discharge Instructions: - Discharge Summary Sheet sp3 - Hospice sp3 Forms: - Medication Reconciliation Form sp3 - Thank You Letter sp3 - Antibiotic Education sp3 - Prescription Opioid Use sp3 Signatures: Dispatcher [employer] EDMS Bev Lucas Patricia, RN RN Fátima Montoya RN RN ll1 Elaine Knox MD MD sp3 Corrections: (The following items were deleted from the chart) 13:20 13:18 Skin: No significant rashes or bleeding seen. Skin is tight in some areas over sp3 the joints but patient is able to move all fingers. There is a small ulcer not high and grade is of a thumbnail on her lower posterior sacral area. There are no signs of infection. viscose department worker is at the bedside discussing options with the patient and family to assist him further in their long-term needs. There is no acute emergency at this time and patient will be safely discharged home.. sp3 13:45 11:19 BASIC METABOLIC PANEL+C.LAB.BRZ ordered. EDMS EDMS 13:45 11:19 HEPATIC FUNCTION+C.LAB.BRZ ordered. EDMS EDMS 13:45 11:19 MAGNESIUM+C.LAB.BRZ ordered. EDMS EDMS 13:45 11:19 Troponin High Sensitivity+C.LAB.BRZ ordered. EDMS EDMS
--- NOTE | 2022-08-06 13:42 | ER ---
Nurse's Notes [facility] Name: Tri Torrez Age: 71 yrs Sex: Female : 1950 Arrival Date: 08/06/2022 Time: 11:10 Bed 8 Private MD: Diagnosis: Body pain, Hospice care Presentation: 08/06 11:10 Chief complaint: EMS states: reports to EMS: dizziness, pain all over, and ll1 weakness that started today. Has a pressure ulcer to coccyx area, possibly infected. Has old R arm FX from approx. 2 months ago. Blood sugar 118, BP 100's systolic. No fever. IV attempted L AC, no success. Coronavirus screen: Vaccine status: Patient reports receiving the 2nd dose of the covid vaccine. Client denies travel out of the [place] in the last 14 days. At this time, the client does not indicate any symptoms associated with coronavirus-19. Ebola Screen: Patient denies travel to an Ebola-affected area in the 21 days before illness onset. Initial Sepsis Screen: Does the patient meet any 2 criteria? No. Patient's initial sepsis screen is negative. Does the patient have a suspected source of infection? Yes: Skin breakdown/wound. Risk Assessment: Do you want to hurt yourself or someone else? Patient reports no desire to harm self or others. Onset of symptoms was August 06, 2022. 11:10 Method Of Arrival: EMS ll1 11:10 Acuity: IVETH 3 ll1 Historical: - Allergies: 11:13 No Known Allergies; ll1 - PMHx: 11:13 Scleroderma; Raynaud's Disease; Rheumatoid Arthritis; Osteoporosis; Hypothyroidism; ll1 COPD; born with 1 kidney; 11:15 Hypothyroidism; ESRD; ll1 - PSHx: 11:13 hysterectomy; ll1 - Immunization history:: Client reports receiving the 2nd dose of the Covid vaccine. - Social history:: Smoking status: Patient reports the use of cigarette tobacco products, denies chronic smoking, but will smoke occasionally. Screenin:19 Abuse screen: Denies threats or abuse. Denies injuries from another. Tuberculosis ph screening: No symptoms or risk factors identified. 14:40 [facility] ED Fall Risk Assessment (Adult) History of falling in the last 3 months, ph including since admission No falls in past 3 months (0 pts) Confusion or Disorientation Yes (5 pts) Intoxicated or Sedated No (0 pts) Impaired Gait Yes (1 pt) Mobility Assist Device Used Yes (1 pt) Altered Elimination Yes (1 pt) Score/Fall Risk Level 3 or more points = High Risk Oriented to surroundings, Maintained a safe environment, Remained with patient while ambulating. Nutritional screening: No deficits noted. Assessment: 12:00 General: Appears in no apparent distress. uncomfortable, slender, Behavior is ph cooperative, fussy, Denies fever. Pain: Complains of pain in "all over". Neuro: Level of Consciousness is awake, alert, obeys commands, Oriented to person, place, situation. Cardiovascular: Capillary refill is sluggish in bilateral fingers fingers cold to touch, hx of Raynauds. Respiratory: Airway is patent Respiratory effort is even, unlabored. GI: Abdomen is flat. : No signs and/or symptoms were reported regarding the genitourinary system. Derm: Skin is fragile, is thin, Skin is pink, warm \\T\\ dry. 13:30 Reassessment: Patient appears in no apparent distress at this time. No changes from previously documented assessment. 14:41 Reassessment: [facility] at bedside for transport home. ph Vital Signs: 11:10 BP 138 / 76; Pulse 87; Resp 17; Temp 97.7; Weight 45.36 kg; Height 5 ft. 4 in. (162.56 ll1 cm); Pain 10/10; 14:07 BP 128 / 80; Pulse 78; Resp 18; Temp 98.0; Pulse Ox 94% on R/A; ph 11:10 Body Mass Index 17.16 (45.36 kg, 162.56 cm) ll1 ED Course: 11:10 Patient arrived in ED. ll1 11:12 Elaine Knox MD is Attending Physician. sp3 11:13 Triage completed. ll1 11:14 Arm band placed on Patient placed in an exam room, on a stretcher. ll1 11:17 Arminda Arias, RN is Primary Nurse. ph 11:36 Initial lab(s) drawn, by ct, sent to lab. Inserted saline lock: 22 gauge in left ph forearm, using aseptic technique. Blood collected. 12:00 Patient has correct armband on for positive identification. Bed in low position. Call ph light in reach. Side rails up X2. Client placed on continuous cardiac and pulse oximetry monitoring. NIBP monitoring applied. Door closed. Noise minimized. Warm blanket given. 12:30 XRAY Chest (1 view) In Process Unspecified. EDMS 14:40 No provider procedures requiring assistance completed. IV discontinued, intact, ph bleeding controlled, No redness/swelling at site. Pressure dressing applied. Administered Medications: 12:45 Drug: morphine 2 mg Route: IVP; Infused Over: 4 mins; Site: left forearm; ph 13:15 Follow up: Response: No adverse reaction; RASS: Alert and Calm (0) ph 14:07 Drug: morphine 2 mg Route: IVP; Infused Over: 4 mins; Site: right forearm; ph 14:44 Follow up: Response: No adverse reaction; RASS: Alert and Calm (0) ph Medication: 14:42 VIS not applicable for this client. ph Outcome: 13:42 Discharge ordered by . sp3 14:44 Patient left the ED. ph 14:44 Discharged to home via ambulance. ph 14:44 Condition: stable Signatures: Dispatcher [employer] EDMS Arminda Arias, RN RN ph Fátima Garcia RN RN ll1 Elaine Knox MD MD sp3
[2022-08-06 15:27] VITALS: BP 128/80; TEMP 98; O2SAT 94
--- NOTE | 2022-08-07 14:56 | EKG ---
Test Date: 2022-08-06 Test Time: 12:36:05 Telephone Lines Repairer: CHAPITO MEASUREMENT RESULTS: Intervals: Rate: 79 SD: 178 QRSD: 84 QT: 318 QTc: 364 [place]: P: 64 SD: 178 QRS: 9 T: 102 INTERPRETIVE STATEMENTS: Normal sinus rhythm Possible Left atrial enlargement Low voltage QRS Nonspecific T wave abnormality Abnormal ECG Compared to ECG 04/25/2021 12:02:38 Low QRS voltage now present T-wave abnormality now present Sinus bradycardia no longer present First degree AV block no longer present Left ventricular hypertrophy no longer present Electronically Signed On 08-07-22 14:54:36 FULL TIME by Michael Carroll
== END 2022-08-06 14:44 | disposition home or self-care (01) ==
LOC: ER 11:08
DX: M79.10 Myalgia, unspecified site (principal); Z51.5 Encounter for palliative care; N18.6 End stage renal disease; I73.00 Raynaud's syndrome without gangrene; M34.9 Systemic sclerosis, unspecified
CPT/HCPCS: 93005; 87088; 85025; 87086; 36415; 71045; 99284; J2270 ×2; 81003; 81015